=== PATIENT | female | born 1965 | race Caucasian/White ===

== ENCOUNTER 2016-10-23 15:23 | Emergency (ER) | payer MEDICARE, OTHER, SELFPAY | END 2016-10-23 16:00 | disposition home or self-care (01) | PROVIDERS: Emergency Provider Nurse Practitioner Family; Family Provider Nurse Practitioner Family; Visit Provider Nurse Practitioner Family | DX: R22.0 Localized swelling, mass and lump, head (principal); K02.9 Dental caries, unspecified | CPT/HCPCS: 99201 ==

== ENCOUNTER 2018-01-21 19:32 | Observation (INO) ==
[2018-01-21 20:37] LABS: Basophils % 0.3 % (0.1-2.0); Eosinophils # 0.1 K/mm3 (0.0-0.4); Eosinophils % 0.8 % (0.1-12.0); Hematocrit 51.6 % (37.0-47.0); Lymphocytes # 1.7 K/mm3 (0.7-4.5); Mean Corpuscular Hemoglobin 32.5 pg (27.0-31.2); Mean Corpuscular Volume 98.6 fl (81-99); Mean Platelet Volume 7.5 fl (7.4-10.4); Monocytes # 0.8 K/mm3 (0.1-1.0); Neutrophils # 7.2 K/mm3 (1.8-7.8); Neutrophils % 73.9 % (37.0-80.0); Platelet Count 248 K/mm3 (142-424); Red Blood Count 5.23 M/mm3 (4.20-5.40); Red Cell Distribution Width 12.6 % (11.5-17.5); White Blood Count 9.7 K/mm3 (4.8-10.8)
[2018-01-21 21:01] LABS: Microscopic, Urine URINE MICROSCOPIC (MICROSCOPIC)
[2018-01-21 21:01] LABS: Amylase 33 U/L (25-125); Anion Gap 9.9 mEq/L (5-15); Blood Urea Nitrogen 15 mg/dL (7-18); Calcium 9.3 mg/dL (8.5-10.1); Carbon Dioxide 33 mmol/L (21.0-32.0); Chloride 102 mmol/L (98-107); Creatine Kinase 60 U/L (26-192); Glucose 120 mg/dL (74-106); Lipase 65 u/L (73-393); Potassium 3.9 mmoL/L (3.5-5.1); Sodium 141 mmol/L (136-145)
[2018-01-21 21:11] LABS: Appearance,Urine CLEAR (Clear); Blood, Urine 1+ (Negative); Color,Urine DK YELLOW (Yellow); Glucose,Urine (UA) TRACE (Negative); Ketones,Urine 1+ (Negative); Leukocyte Esterase,Urine Negative (Negative); Protein,Urine 2+ (Negative); Specific Gravity, Urine >= 1.030 (1.005-1.030); Urobilinogen,Urine >=8.0 EU/dl (0.2)
--- NOTE | 2018-01-21 21:25 | Emergency Department Note ---
ED Disposition Clinical Impression: Cholelithiasis Qualifiers: Cholelithiasis location: gallbladder Cholecystitis presence: without cholecystitis Biliary obstruction: without biliary obstruction Qualified Code(s) : K80.20 - Calculus of gallbladder without cholecystitis without obstruction COPD (chronic obstructive pulmonary disease) Qualifiers: COPD type: unspecified COPD Qualified Code(s): J44.9 - Chronic obstructive pulmonary disease, unspecified Disposition: Admitted as Observation Condition on Discharge: Good Instructions: DI for Acute Abdomen Referrals: Morgan Abrams [Primary Care Provider] - - Critical Care Critical Care Time: No Attestation: On 01/21/18, the high probability of a clinically significant, sudden or life threatening deterioration of the following system(s) required my full and direct attention, intervention and personal management. The time I documented below is in addition to time spent performing reported procedures but includes the following listed in this critical care notation. Medical Decision Making - Medical Records Medical records reviewed: Yes: I reviewed the patient's medical records. - Ronnie Inquiry Pt receiving controlled substance: No Vital Signs: 01/21/18 19:34 01/21/18 20:34 01/21/18 20:57 Temperature 98.2 F Temperature Source Oral Pulse Rate [Right Radial] 124 H 122 H 103 H Respiratory Rate 28 H 18 Blood Pressure [Right Arm] 168/79 103/68 Blood Pressure Mean [Right Arm] 108 79 Blood Pressure Source [Right Arm] Automatic Cuff Automatic Cuff Blood Pressure Position [Right Arm] Sitting 02 Sat by Pulse Oximetry 89 L 93 L 99 Oxygen Delivery Method Room Air Nasal Cannula - Lab Data Lab results reviewed: Yes: I reviewed the patient's lab results. Lab Results 01/21/18 20:14: WBC 9.7, RBC 5.23, Hgb 17.0 H, Hct 51.6 H, MCV 98.6, MCH 32.5 H , MCHC 33.0, RDW 12.6, Plt Count 248, MPV 7.5, Neut % (Auto) 73.9, Lymph % (Auto ) 17.0, [place] % (Auto) 8.0, Eos % (Auto) 0.8, Baso % (Auto) 0.3, Neut # (Auto) 7.2, Lymph # (Auto) 1.7, [place] # (Auto) 0.8, Eos # (Auto) 0.1, Baso # (Auto) 0.0 01/21/18 20:14: Sodium 141, Potassium 3.9, Chloride 102, Carbon Dioxide 33 H, Anion Gap 9.9, BUN 15, Creatinine 0.77, Estimated Creat Clear 108, Estimated GFR 78, Est GFR ( Amer) 95, Glucose 120 H, Calcium 9.3, Total Creatine Kinase 60, CK-MB (CK-2) < 0.5, CK-MB (CK-2) Rel Index 0.8, Troponin I < 0.02, Amylase 33, Lipase 65 L 01/21/18 20:14: Lactate 1.0 Result diagrams: 01/21/18 20:14 01/21/18 20:14 Orders (Tests/Meds): ED MEDICATIONS Discontinued Medications Generic Name Dose Route Start Last Admin Trade Name Freq PRN Reason Stop Dose Admin Sodium Chloride 1,000 mls @ 999 mls/hr 01/21/18 20:00 01/21/18 20:10 Sod Chlor 0.9% 1000ml Bag IV 01/21/18 21:00 999 mls/hr .[id number] MIKAELA Administration ORDERS Category Date Time Status CT abdomen pelvis wo con Stat Cat Scan 01/21/18 19:51 Taken XR chest 2V Stat Exams 01/21/18 19:51 Ordered Diarrhea Panel, PCR Stat Lab 01/21/18 19:51 Ordered Urinalysis and Microscopic Stat Lab 01/21/18 20:55 Received Blood Culture Stat Micro 01/21/18 20:14 Received 12-lead EKG Request [ECG Request by /Cindi] Stat Y 01/21/18 19:55 Ordered - Radiology Data #1 Image(s): Chest Image Reviewed: Yes I reviewed the patient's radiology image Preliminary Findings: Normal/NAD - CT Data CT Scan: Abdomen, Pelvis Time Received: 21:[address] Reviewed: Yes: I have viewed the radiologist's interpretation Preliminary Findings: Abnormal (gallstone) - ECG Data Tracing #1 I reviewed this ECG and interpreted as documented below: Normal Sinus Rhythm: Yes Ischemic changes: non-specific ST-T wave changes Nausea/Vomiting/Diarrhea HPI - General Chief complaint: Abdominal Pain Stated complaint: weakness,v/d, Time Seen by Provider: 01/21/18 20:00 Mode of Arrival: Ambulatory Source of Information: Patient, Relative, Medical Record Limitations: No Limitations Description of Symptoms (Recalled from ER Triage Doc. by RN): Pt. reports nausea vomiting diarrhea and increased weakness since Friday. She reports she has been unable to eat and her stomach feels bubbly. With lower central abdominal pain. - History of Present Illness HPI Narrative: over the last few days has upper abd pain with n/v - no melena - MD complaint: nausea, vomiting, abdominal pain Onset (ago): day(s) Associated Abdominal Pain: Yes Location of pain: epigastric Severity: moderate Associated symptoms: nausea/vomiting - Related Data Allergies Allergy/AdvReac Type Severity Reaction Status Date / Time morphine [MORPHINE] Allergy Intermediate Verified 01/21/18 19:45 naproxen [From ALEVE] Allergy Unknown SWELLING Verified 01/21/18 19:45 [facility] History I have reviewed the patient's past medical history: Yes - Social History Smoking Status: Current every day smoker Tobacco Type: cigarettes Alcohol Intake: never - Psychiatric History Expresses thoughts of harming self/others: None Suicide Plan Description: No Plan ROS Obtained: Yes All systems reviewed & no additional complaints - Constitutional Constitutional: Denies fever(s) - Eyes Eyes: Denies change in vision - ENT Ears, Nose, Mouth, and Throat: Denies sore throat - Cardiovascular Cardiovascular: Denies chest pain - Respiratory Respiratory: No cough - Gastrointestinal Gastrointestingal: Reports: abdominal pain, nausea, vomiting. Denies: black, tarry stools - Genitourinary Female Genitourinary: Denies hematuria - Musculoskeletal Musculoskeletal: Denies joint pain, Denies joint swelling - Integumentary/Breasts Skin/Breast: Denies rash - Neurologic Neurologic: Denies headache(s), Denies seizure-like activity Physical Exam - General General appearance: alert, in no apparent distress - Head Head exam: normocephalic - Eye Eye exam: Present: PERRL, EOMI. Absent: scleral icterus - ENT ENT exam: Present: mucous membranes dry - Neck Neck exam: Present: trachea midline - Respiratory Respiratory exam: Present: other (rhonchi). Absent: respiratory distress - Cardiovascular Cardiovascular exam: Present: regular rate, systolic murmur, +S4 - Abdominal Exam Abdominal exam: Present: soft, tenderness, Garza's sign Abdominal tenderness: Present: epigastrium, moderate - Extremities Exam Extremities exam: Absent: calf tenderness - Back Exam Back exam: Absent: CVA tenderness (R) - Neurological Exam Neurological exam: Present: alert, oriented X3, CN II-XII intact - Skin Skin exam: Absent: rash
[2018-01-21 22:00] LABS: Bilirubin,Urine Negative (Negative)
[2018-01-21 22:13] LABS: Bacteria,Urine 3+ /lpf; RBC,Urine Occasional #/hpf (0-3); Squamous Epithelial Cell,Urine TNTC #/hpf (0-5)
[2018-01-21 22:14] LABS: Fine Granular Casts,Urine Occasional #/lpf (0)
[2018-01-22 05:26] LABS: Basophils % 0.3 % (0.1-2.0); Eosinophils % 0.4 % (0.1-12.0); Hematocrit 45.3 % (37.0-47.0); Lymphocytes # 2.1 K/mm3 (0.7-4.5); Lymphocytes % 25.6 K/mm3 (10-50); Mean Corpuscular HGB Conc 32.5 g/dL (31.8-35.4); Mean Corpuscular Hemoglobin 32.4 pg (27.0-31.2); Mean Corpuscular Volume 99.8 fl (81-99); Mean Platelet Volume 7.8 fl (7.4-10.4); Monocytes # 0.7 K/mm3 (0.1-1.0); Monocytes % 8.8 % (1.7-9.3); Neutrophils # 5.4 K/mm3 (1.8-7.8); Platelet Count 203 K/mm3 (142-424); Red Blood Count 4.54 M/mm3 (4.20-5.40); Red Cell Distribution Width 12.7 % (11.5-17.5); White Blood Count 8.4 K/mm3 (4.8-10.8)
[2018-01-22 05:36] LABS: Anion Gap 4.7 mEq/L (5-15); Calcium 8.8 mg/dL (8.5-10.1); Chol/HDL Ratio 3.3 (1-3.5); Potassium 3.7 mmoL/L (3.5-5.1)
[2018-01-22 05:44] LABS: Hemoglobin 14.9 g/dL (12.2-16.2)
--- NOTE | 2018-01-22 07:29 | Pharmacy Consult Notes ---
[facility] Pharmacy VTE Monitoring - Patient Demographics Admission date: 01/21/18 Report Date: 01/22/18 Time: 07:28 Allergies/Adverse Reactions: Patient Allergies morphine [MORPHINE] Allergy (Intermediate, Verified 01/21/18 19:45) naproxen [From ALEVE] Allergy (Unknown, Verified 01/21/18 19:45) SWELLING Height: 1.6 m Weight: 83.3 kg Patient Problems: Current Active Problems Cholelithiasis (Acute) COPD (chronic obstructive pulmonary disease) (Acute) - VTE Risk Labs: VTE Related Lab Results Hgb 14.9 g/dL (12.2-16.2) D 01/22/18 04:15 Hct 45.3 % (37.0-47.0) 01/22/18 04:15 Plt Count 203 K/mm3 (142-424) 01/22/18 04:15 BUN 13 mg/dL (7-18) 01/22/18 04:15 Creatinine 0.61 mg/dL (0.55-1.02) D 01/22/18 04:15 Estimated Creat Clear 143 mL/min (0-300) 01/22/18 04:15 VTE Score: 7 VTE Risk Level: Moderate Risk - Prophylaxis VTE Prophylaxis Ordered?: Yes Types of VTE Prophylaxis: TEDS Knee High Location of Applied Device: Bilateral Lower Extremeties - VTE Diagnosis Confirmed Treatment or plan recommended: Continue Current Treatment
--- NOTE | 2018-01-22 14:03 | Consult Report ---
*Admission Date: 01/21/18 *Chief complaint: Nausea, vomiting, and abdominal pain. *History of present illness: This is a 52-year-old female seen in consultation from Dr. Partida for evaluation regarding possible gallbladder disease. Over the past few months she has had intermittent pain throughout the abdomen. Some associated nausea and vomiting. She did have some recent diarrhea, but this has resolved. No fevers. No jaundice. No definitive association with food intake. A CT scan revealed a gallstone and follow-up ultrasound revealed cholelithiasis with some mild wall thickening. Review of Systems - Constitutional Denies chills - Eyes Denies change in vision - ENT Denies difficulty swallowing - *Cardiovascular Denies chest pain - *Respiratory Reports cough Comments: chronic - *Gastrointestinal Reports abdominal pain, Reports nausea, Reports vomiting, Denies vomiting blood , Denies bright, red blood in stools, Denies black, tarry stools, Denies pain with swallowing - *Genitourinary Denies abnormal vaginal bleeding - *Neurologic Denies headache(s), Denies seizure-like activity - Hematologic/Lymphatic Denies easy bleeding [facility] History Medical History: Reports:: Chronic Obstructive Pulmonary Disease (COPD), Heart Murmur, Lung Disease Denies:: Cancer, Congestive Heart Failure, Diabetes Mellitus Type 1, Diabetes Mellitus Type 2, MRSA Other Medical History: Reports: Hormone Therapy, Sinus Problems Laterality Cases: Left: Other Other Surgeries: Yes: Tubal Ligation Amputation: No - *Social History Educational Level: Attended Grade School Smoking Status: Current every day smoker Tobacco Type: cigarettes # Packs/Day (cigarettes): 1 #Yrs smoked (if former smoker): 40 Alcohol Intake: former Alcohol Intake Frequency:: 0-2 drinks per day Occupational Status: disabled Housing: apartment Household Members: spouse - Psychiatric History Expresses thoughts of harming self/others: None Suicide Plan Description: No Plan *Family Hx:: Asthma Meds Home Medications Medication Instructions Recorded Confirmed Type Albuterol Sulfate [Albuterol HFA 1 - 2 puffs IH Q4-6H PRN 01/21/18 01/21/18 History Inhaler] Estradiol 0.05 mg TD WEEKLY 01/21/18 01/22/18 History Fluoxetine HCl 20 mg PO BID 01/21/18 01/21/18 History Nortriptyline HCl 25 mg PO HS 01/21/18 01/21/18 History Omeprazole [Omeprazole 40mg 40 mg PO DAILY 01/21/18 01/21/18 History Capsule] Progesterone, Micronized 100 mg PO DAILY 01/21/18 01/21/18 History [Progesterone] Ropinirole HCl [Requip] 0.5 mg PO HS 01/21/18 01/21/18 History Tiotropium [place] [Spiriva 2.5 mcg INHALATION BIDP PRN 01/21/18 01/21/18 History Respimat] buPROPion HCl [Wellbutrin SR 150mg 150 mg PO BID 01/21/18 01/21/18 History Tablet] Allergies Allergy/AdvReac Type Severity Reaction Status Date / Time morphine [MORPHINE] Allergy Intermediate Verified 01/21/18 19:45 naproxen [From ALEVE] Allergy Unknown SWELLING Verified 01/21/18 19:45 Exam Vital signs and Labs for Last 24 Hours: Temp Pulse Resp BP Pulse Ox 98.3 F 96 H 16 130/68 91 L 01/22/18 07:36 01/22/18 07:36 01/22/18 07:36 01/22/18 07:36 01/22/18 08:00 Laboratory Results - last 24 hr 01/21/18 20:14: WBC 9.7, RBC 5.23, Hgb 17.0 H, Hct 51.6 H, MCV 98.6, MCH 32.5 H , MCHC 33.0, RDW 12.6, Plt Count 248, MPV 7.5, Neut % (Auto) 73.9, Lymph % (Auto ) 17.0, [place] % (Auto) 8.0, Eos % (Auto) 0.8, Baso % (Auto) 0.3, Neut # (Auto) 7.2, Lymph # (Auto) 1.7, [place] # (Auto) 0.8, Eos # (Auto) 0.1, Baso # (Auto) 0.0 01/21/18 20:14: Sodium 141, Potassium 3.9, Chloride 102, Carbon Dioxide 33 H, Anion Gap 9.9, BUN 15, Creatinine 0.77, Estimated Creat Clear 108, Estimated GFR 78, Est GFR ( Amer) 95, Glucose 120 H, Calcium 9.3, Total Creatine Kinase 60, CK-MB (CK-2) < 0.5, CK-MB (CK-2) Rel Index 0.8, Troponin I < 0.02, Amylase 33, Lipase 65 L 01/21/18 20:14: Lactate 1.0 01/21/18 20:55: Urine Color Dk yellow, Urine Appearance Clear, Urine pH 6.0, Ur Specific [place] >= 1.030, Urine Protein 2+, Urine Glucose (UA) Trace, Urine Ketones 1+, Urine Blood 1+, Urine Nitrate Positive, Urine Bilirubin Negative, Urine Urobilinogen >=8.0, Ur Leukocyte Esterase Negative, Urine RBC Occasional, Urine WBC 5-10, Ur Squamous Epith Cells Tntc, Urine Bacteria 3+, Hyaline Casts 3 -5, Fine Granular Casts Occasional 01/21/18 22:00: Troponin I < 0.02 01/22/18 01:00: Troponin I < 0.02 01/22/18 04:15: Troponin I < 0.02 01/22/18 04:15: WBC 8.4, RBC 4.54, Hgb 14.9 D, Hct 45.3, MCV 99.8 H, MCH 32.4 H , MCHC 32.5, RDW 12.7, Plt Count 203, MPV 7.8, Neut % (Auto) 65.0, Lymph % (Auto ) 25.6, [place] % (Auto) 8.8, Eos % (Auto) 0.4, Baso % (Auto) 0.3, Neut # (Auto) 5.4, Lymph # (Auto) 2.1, [place] # (Auto) 0.7, Eos # (Auto) 0.0, Baso # (Auto) 0.0 01/22/18 04:15: Sodium 142, Potassium 3.7, Chloride 107, Carbon Dioxide 34 H, Anion Gap 4.7 L, BUN 13, Creatinine 0.61 D, Estimated Creat Clear 143, Estimated GFR 102, Est GFR ( Amer) 124 D, Glucose 107 H, Calcium 8.8, Magnesium 2.0, Triglycerides 112, Cholesterol 135 L, LDL Cholesterol 72, VLDL Cholesterol 22, HDL Cholesterol 41, Cholesterol/HDL Ratio 3.3 I & O for Last 24 hours: Intake & Output 01/20/18 01/21/18 01/22/18 01/23/18 11:59 11:59 11:59 11:59 Intake Total 373 / 373 Balance 373 / 373 Weight 183 lb 10.321 oz - Constitutional no acute distress - *Routine Neck Exam Present: full ROM - *Routine Respiratory Exam Absent: respiratory distress Comments: on NC O2 - *Routine Abdominal Exam Present: soft, tenderness Comments: throughout, but worse in epigastric region and RUQ - *Routine Neurological Exam Present: alert - Routine Psychiatric Exam Present: normal affect Results - Labs 01/22/18 04:15 01/22/18 04:15 Laboratory Results - last 24 hr 01/21/18 20:14: WBC 9.7, RBC 5.23, Hgb 17.0 H, Hct 51.6 H, MCV 98.6, MCH 32.5 H , MCHC 33.0, RDW 12.6, Plt Count 248, MPV 7.5, Neut % (Auto) 73.9, Lymph % (Auto ) 17.0, [place] % (Auto) 8.0, Eos % (Auto) 0.8, Baso % (Auto) 0.3, Neut # (Auto) 7.2, Lymph # (Auto) 1.7, [place] # (Auto) 0.8, Eos # (Auto) 0.1, Baso # (Auto) 0.0 01/21/18 20:14: Sodium 141, Potassium 3.9, Chloride 102, Carbon Dioxide 33 H, Anion Gap 9.9, BUN 15, Creatinine 0.77, Estimated Creat Clear 108, Estimated GFR 78, Est GFR ( Amer) 95, Glucose 120 H, Calcium 9.3, Total Creatine Kinase 60, CK-MB (CK-2) < 0.5, CK-MB (CK-2) Rel Index 0.8, Troponin I < 0.02, Amylase 33, Lipase 65 L 01/21/18 20:14: Lactate 1.0 01/21/18 20:55: Urine Color Dk yellow, Urine Appearance Clear, Urine pH 6.0, Ur Specific [place] >= 1.030, Urine Protein 2+, Urine Glucose (UA) Trace, Urine Ketones 1+, Urine Blood 1+, Urine Nitrate Positive, Urine Bilirubin Negative, Urine Urobilinogen >=8.0, Ur Leukocyte Esterase Negative, Urine RBC Occasional, Urine WBC 5-10, Ur Squamous Epith Cells Tntc, Urine Bacteria 3+, Hyaline Casts 3 -5, Fine Granular Casts Occasional 01/21/18 22:00: Troponin I < 0.02 01/22/18 01:00: Troponin I < 0.02 01/22/18 04:15: Troponin I < 0.02 01/22/18 04:15: WBC 8.4, RBC 4.54, Hgb 14.9 D, Hct 45.3, MCV 99.8 H, MCH 32.4 H , MCHC 32.5, RDW 12.7, Plt Count 203, MPV 7.8, Neut % (Auto) 65.0, Lymph % (Auto ) 25.6, [place] % (Auto) 8.8, Eos % (Auto) 0.4, Baso % (Auto) 0.3, Neut # (Auto) 5.4, Lymph # (Auto) 2.1, [place] # (Auto) 0.7, Eos # (Auto) 0.0, Baso # (Auto) 0.0 01/22/18 04:15: Sodium 142, Potassium 3.7, Chloride 107, Carbon Dioxide 34 H, Anion Gap 4.7 L, BUN 13, Creatinine 0.61 D, Estimated Creat Clear 143, Estimated GFR 102, Est GFR ( Amer) 124 D, Glucose 107 H, Calcium 8.8, Magnesium 2.0, Triglycerides 112, Cholesterol 135 L, LDL Cholesterol 72, VLDL Cholesterol 22, HDL Cholesterol 41, Cholesterol/HDL Ratio 3.3 - Imaging CT scan - abdomen: report reviewed CT scan - pelvis: report reviewed US - abdomen: report reviewed Assessment and Plan (1) Chronic calculous cholecystitis Current visit: Yes Status: Acute Category: Medical Code(s): K80.10 - Calculus of gallbladder with chronic cholecystitis without obstruction Some of the patient's recent symptoms are not definitively attributable to biliary disease; however, she certainly does have some pain in the right upper quadrant and epigastric region with radiographic evidence of at least mild calculus cholecystitis. I have discussed the risks and benefits of cholecystectomy and she agrees to proceed. LFTs have been ordered Laparoscopic cholecystectomy (pending results of liver function studies)
[2018-01-22 14:23] LABS: Albumin Level 2.8 gm/dL (3.4-5.0); Bilirubin,Direct 0.1 mg/dL (0.0-0.2); Bilirubin,Indirect 0.3 mg/dL (0.0-0.9); Bilirubin,Total 0.4 mg/dL (0.2-1.0); Total Protein,Serum 6.7 gm/dL (6.4-8.2)
--- NOTE | 2018-01-22 17:06 | Operative Note ---
Date of procedure: 01/22/18 Pre-op Diagnosis:: Acute on chronic calculus cholecystitis Post-op Diagnosis:: Same Procedure performed:: Laparoscopic cholecystectomy Surgeon:: George Brown MD Termite Treater(s):: Dinesh HOG TRADER:: René Isaac Anesthesia: GETA Estimated blood loss (mL): 15 Operative findings:: Moderately sized gallstone with mild gallbladder wall thickening and patchy pericholecystic fat stranding Operative note:: After informed consent was obtained, the patient was taken to the operating room and placed in the supine position. General anesthesia was induced and the abdomen was prepped and draped in a sterile fashion. After infiltration with local anesthetic an infraumbilical incision was made. A Veress needle was placed in position. The abdomen was insufflated. A 5 mm optical trocar was placed in position. Under direct visualization, a 12 mm trocar was placed in the subxiphoid position and 2 additional 5 mm trocars were placed in the right upper quadrant. The gallbladder was elevated up and over the liver margin. Mild gallbladder wall thickening and patchy pericholecystic fat stranding was noted. Careful dissection was utilized to free the gallbladder from surrounding tissue. The tissue around the cystic duct was carefully dissected. 3 clips were placed proximally and the duct was transected with harmonic aubree. Harmonic aubree were then utilized to dissect the gallbladder away from the liver margin with careful attention to the control of the cystic artery. The gallbladder was placed in a retrieval bag and removed through the subxiphoid trocar site. A moderately-sized gallstone was confirmed. The right upper quadrant was thoroughly irrigated. No active bleeding or bile leak was noted. Fascia at the subxiphoid trocar site was reapproximated utilizing 0 Ethibond. The remaining trocars were removed. All wounds were irrigated and skin was closed with 4-0 Monocryl in a subcuticular fashion. Steri-Strips were applied. The patient's anesthetic agents were reversed and extubation was completed prior to transfer to recovery in stable condition. Condition: stable Disposition: PACU Specimens:: Gallbladder and contents Complications:: No immediate
--- NOTE | 2018-01-22 17:22 | History & Physical Report ---
*Admission Date: 01/21/18 *Chief complaint: abd pain *History of present illness: This is a 52-year-old female seen in consultation from Dr. Partida for evaluation regarding possible gallbladder disease. Over the past few months she has had intermittent pain throughout the abdomen. Some associated nausea and vomiting. She did have some recent diarrhea, but this has resolved. No fevers. No jaundice. No definitive association with food intake. A CT scan revealed a gallstone and follow-up ultrasound revealed cholelithiasis with some mild wall thickening. [facility] History I have reviewed the patient's past medical history: Yes Medical History: Reports:: Chronic Obstructive Pulmonary Disease (COPD), Heart Murmur, Lung Disease Denies:: Cancer, Congestive Heart Failure, Diabetes Mellitus Type 1, Diabetes Mellitus Type 2, MRSA Other Medical History: Reports: Hormone Therapy, Sinus Problems Laterality Cases: Left: Other Other Surgeries: Yes: Tubal Ligation Amputation: No - *Social History Educational Level: Attended Grade School Smoking Status: Current every day smoker Tobacco Type: cigarettes # Packs/Day (cigarettes): 1 #Yrs smoked (if former smoker): 40 Alcohol Intake: former Alcohol Intake Frequency:: 0-2 drinks per day Occupational Status: disabled Housing: apartment Household Members: spouse - Psychiatric History Expresses thoughts of harming self/others: None Suicide Plan Description: No Plan *Family Hx:: Asthma Review of Systems - Review of Systems Review of systems:: pertinent systems reviewed and negative unless documented below - Constitutional Denies fever(s) - Eyes Denies floaters - ENT Denies change in voice - *Cardiovascular Reports shortness of breath - *Respiratory Reports shortness of breath, Reports shortness of breath with activity - *Gastrointestinal Reports abdominal pain, Denies vomiting - *Genitourinary Denies vaginal dryness - *Musculoskeletal Denies stiffness - Integumentary/Breasts Denies rash - *Neurologic Denies headache(s), Denies seizure-like activity - Endocrine Denies flushing - Hematologic/Lymphatic Denies enlarged lymph nodes Meds Home Medications Medication Instructions Recorded Confirmed Type Albuterol Sulfate [Albuterol HFA 1 - 2 puffs IH Q4-6H PRN 01/21/18 01/21/18 History Inhaler] Estradiol 0.05 mg TD WEEKLY 01/21/18 01/22/18 History Fluoxetine HCl 20 mg PO BID 01/21/18 01/21/18 History Nortriptyline HCl 25 mg PO HS 01/21/18 01/21/18 History Omeprazole [Omeprazole 40mg 40 mg PO DAILY 01/21/18 01/21/18 History Capsule] Progesterone, Micronized 100 mg PO DAILY 01/21/18 01/21/18 History [Progesterone] Ropinirole HCl [Requip] 0.5 mg PO HS 01/21/18 01/21/18 History Tiotropium [place] [Spiriva 2.5 mcg INHALATION BIDP PRN 01/21/18 01/21/18 History Respimat] buPROPion HCl [Wellbutrin SR 150mg 150 mg PO BID 01/21/18 01/21/18 History Tablet] Allergies Allergy/AdvReac Type Severity Reaction Status Date / Time morphine [MORPHINE] Allergy Intermediate Verified 01/21/18 19:45 naproxen [From ALEVE] Allergy Unknown SWELLING Verified 01/21/18 19:45 Exam Vital signs and Labs for Last 24 Hours: Temp Pulse Resp BP Pulse Ox 98.3 F 89 16 130/68 95 01/22/18 07:36 01/22/18 15:56 01/22/18 07:36 01/22/18 07:36 01/22/18 15:56 Laboratory Results - last 24 hr 01/21/18 20:14: WBC 9.7, RBC 5.23, Hgb 17.0 H, Hct 51.6 H, MCV 98.6, MCH 32.5 H , MCHC 33.0, RDW 12.6, Plt Count 248, MPV 7.5, Neut % (Auto) 73.9, Lymph % (Auto ) 17.0, Giles % (Auto) 8.0, Eos % (Auto) 0.8, Baso % (Auto) 0.3, Neut # (Auto) 7.2, Lymph # (Auto) 1.7, Giles # (Auto) 0.8, Eos # (Auto) 0.1, Baso # (Auto) 0.0 01/21/18 20:14: Sodium 141, Potassium 3.9, Chloride 102, Carbon Dioxide 33 H, Anion Gap 9.9, BUN 15, Creatinine 0.77, Estimated Creat Clear 108, Estimated GFR 78, Est GFR ( Amer) 95, Glucose 120 H, Calcium 9.3, Total Creatine Kinase 60, CK-MB (CK-2) < 0.5, CK-MB (CK-2) Rel Index 0.8, Troponin I < 0.02, Amylase 33, Lipase 65 L 01/21/18 20:14: Lactate 1.0 01/21/18 20:55: Urine Color Dk yellow, Urine Appearance Clear, Urine pH 6.0, Ur Specific [place] >= 1.030, Urine Protein 2+, Urine Glucose (UA) Trace, Urine Ketones 1+, Urine Blood 1+, Urine Nitrate Positive, Urine Bilirubin Negative, Urine Urobilinogen >=8.0, Ur Leukocyte Esterase Negative, Urine RBC Occasional, Urine WBC 5-10, Ur Squamous Epith Cells Tntc, Urine Bacteria 3+, Hyaline Casts 3 -5, Fine Granular Casts Occasional 01/21/18 22:00: Troponin I < 0.02 01/22/18 01:00: Troponin I < 0.02 01/22/18 04:15: Troponin I < 0.02 01/22/18 04:15: WBC 8.4, RBC 4.54, Hgb 14.9 D, Hct 45.3, MCV 99.8 H, MCH 32.4 H , MCHC 32.5, RDW 12.7, Plt Count 203, MPV 7.8, Neut % (Auto) 65.0, Lymph % (Auto ) 25.6, Giles % (Auto) 8.8, Eos % (Auto) 0.4, Baso % (Auto) 0.3, Neut # (Auto) 5.4, Lymph # (Auto) 2.1, Giles # (Auto) 0.7, Eos # (Auto) 0.0, Baso # (Auto) 0.0 01/22/18 04:15: Sodium 142, Potassium 3.7, Chloride 107, Carbon Dioxide 34 H, Anion Gap 4.7 L, BUN 13, Creatinine 0.61 D, Estimated Creat Clear 143, Estimated GFR 102, Est GFR ( Amer) 124 D, Glucose 107 H, Calcium 8.8, Magnesium 2.0, Triglycerides 112, Cholesterol 135 L, LDL Cholesterol 72, VLDL Cholesterol 22, HDL Cholesterol 41, Cholesterol/HDL Ratio 3.3 01/22/18 14:00: Total Bilirubin 0.4, Direct Bilirubin 0.1, Indirect Bilirubin 0.3, AST 6 L, ALT 17, Alkaline Phosphatase 88, Total Protein 6.7, Albumin 2.8 L I & O for Last 24 hours: Intake & Output 01/20/18 01/21/18 01/22/18 01/23/18 11:59 11:59 11:59 11:59 Intake Total 373 / 373 Balance 373 / 373 Weight 183 lb 10.321 oz Microbiology Reports for the Last 24 Hours: Microbiology 01/22/18 11:00 Sputum - Expectorated Sputum Gram Stain - Final - Constitutional no acute distress - *Routine HEENT Exam Head: Present: normocephalic Eye: Present: PERRL ENT: Present: mucous membranes moist - *Routine Neck Exam Present: full ROM - *Routine Respiratory Exam Present: wheezes - *Routine Cardiovascular Exam Present: RRR - *Routine Abdominal Exam Present: soft, normoactive bowel sounds, tenderness - *Routine Extremities Exam Present: full ROM - *Routine Skin Exam Present: intact - *Routine Neurological Exam Present: alert, oriented X3, CN II-XII intact - Routine Psychiatric Exam Present: normal affect, normal thought process H&P: Result - Labs Labs: Short CBC 01/21/18 01/22/18 Range/Units 20:14 04:15 WBC 9.7 8.4 (4.8-10.8) K/mm3 Hgb 17.0 H 14.9 D (12.2-16.2) g/dL Hct 51.6 H 45.3 (37.0-47.0) % Plt Count 248 203 (142-424) K/mm3 BMP 01/21/18 01/22/18 20:14 04:15 Sodium 141 142 Potassium 3.9 3.7 Chloride 102 107 Carbon Dioxide 33 H 34 H BUN 15 13 Creatinine 0.77 0.61 D Glucose 120 H 107 H Calcium 9.3 8.8 Cardiac Enzymes 01/21/18 01/21/18 01/22/18 Range/Units 20:14 22:00 01:00 Total Creatine Kinase 60 (26-192) U/L CK-MB (CK-2) < 0.5 (0.0-3.6) ng/ml Troponin I < 0.02 < 0.02 < 0.02 (0.00-0.06) ng/ml 01/22/18 Range/Units 04:15 Total Creatine Kinase (26-192) U/L CK-MB (CK-2) (0.0-3.6) ng/ml Troponin I < 0.02 (0.00-0.06) ng/ml Liver Function 01/22/18 Range/Units 14:00 Total Bilirubin 0.4 (0.2-1.0) mg/dL Direct Bilirubin 0.1 (0.0-0.2) mg/dL AST 6 L (15-37) U/L ALT 17 (12-78) U/L Alkaline Phosphatase 88 (46-116) U/L Albumin 2.8 L (3.4-5.0) gm/dL Urine 01/21/18 Range/Units 20:55 Urine Color Dk yellow (Yellow) Urine Appearance Clear (Clear) Urine pH 6.0 (5.0-8.5) Ur Specific [place] >= 1.030 (1.005-1.030) Urine Protein 2+ (Negative) Urine Glucose (UA) Trace (Negative) Assessment and Plan (1) Chronic calculous cholecystitis Current visit: Yes Status: Acute Category: Medical Code(s): K80.10 - Calculus of gallbladder with chronic cholecystitis without obstruction - Assessment and plan all Dx Assessment and Plan for all problems:: Surgery consult Rounded with Dr. Partida all orders per Helga
--- NOTE | 2018-01-22 17:53 | Progress Note ---
[facility] Anesthesia Record Part I Intake, IV Amount: 1,000 Estimated blood loss (mL): 0 Urine output (mL): 0 Blood Pressure: 166/84 SaO2: 95 Pulse Rate: 108 Respiratory Rate: 18 Temperature: 97.4 F Patient is:: Awake, Stable Stable to PACU at:: 17:50
--- NOTE | 2018-01-22 17:53 | Progress Note ---
[facility] Anesthesia Checklist - Structural Data Admitted From: Inpatient Planned Operative Procedure/s: pardeep hong Consent for Planned Operative Procedure(s) Verified: Yes - Airway Assessment C-Spine Mobility Assessed: Yes TMJ Mobility Assessed: Yes Dentition: Poor Dentition - Neurological Assessment Level of Consciousness: Awake, Alert, Appropriate - Anesthesia Plan Anesthesia Risk discussed: Yes Anesthesia Plan: Verified ASA Class: III Anesthesia Type: General [facility] Anesthesia HX I have reviewed the patient's past medical history: Yes Medical History: Reports:: Chronic Obstructive Pulmonary Disease (COPD), Heart Murmur, Lung Disease Denies:: Cancer, Congestive Heart Failure, Diabetes Mellitus Type 1, Diabetes Mellitus Type 2, MRSA Other Medical History: Reports: Hormone Therapy, Sinus Problems Laterality Cases: Left: Other Other Surgeries: Yes: Tubal Ligation Amputation: No *Family Hx:: Asthma
--- NOTE | 2018-01-22 17:54 | Progress Note ---
[facility] Anesthesia Record Part II Discharge Time: 18:20 Destination: floor PACU nurse assessment reviewed?: Yes Patient Condition:: Good Anesthesia Complications:: None
--- NOTE | 2018-01-23 06:45 | Progress Note ---
Subjective Patient reports: other ("doing OK"..."coughing quit a bit") Exam Vital signs and Labs for Last 24 Hours: Temp Pulse Resp BP Pulse Ox 98.1 F 91 H 16 128/70 98 01/23/18 04:40 01/23/18 06:26 01/23/18 04:40 01/23/18 04:40 01/23/18 06:26 Laboratory Results - last 24 hr 01/22/18 14:00: Total Bilirubin 0.4, Direct Bilirubin 0.1, Indirect Bilirubin 0.3, AST 6 L, ALT 17, Alkaline Phosphatase 88, Total Protein 6.7, Albumin 2.8 L I & O for Last 24 hours: Intake & Output 01/20/18 01/21/18 01/22/18 01/23/18 11:59 11:59 11:59 11:59 Intake Total 373 / 373 1682 / 1682 Output Total 500 / 500 Balance 373 / 373 1182 / 1182 Weight 183 lb 10.321 oz 201 lb 4.513 oz Microbiology Reports for the Last 24 Hours: Microbiology 01/21/18 20:55 Urine,Clean Catch Urine Culture - Preliminary NO GROWTH AFTER 24 HOURS 01/22/18 11:00 Sputum - Expectorated Sputum Gram Stain - Final - Constitutional no acute distress - *Routine Respiratory Exam Absent: respiratory distress Comments: + cough - *Routine Abdominal Exam Present: soft Comments: dressing intact. no cellulitis. Progress Note: A&P (1) Chronic calculous cholecystitis Status: Acute Current Visit: Yes (2) Calculus of gallbladder with acute and chronic cholecystitis without obstruction Status: Acute Assessment and plan: stable post-op no heavy lifting outpatient f/u in 1-2 weeks Current Visit: Yes (3) Cough Status: Acute Assessment and plan: as per primary service Current Visit: Yes (4) COPD (chronic obstructive pulmonary disease) Status: Acute Assessment and plan: as per primary service Current Visit: Yes
--- NOTE | 2018-01-23 08:39 | Discharge Summary ---
General - General Admission date:: 01/21/18 Discharge date: 01/23/18 HPI HPI: This is a 52-year-old female seen in consultation from Dr. Partida for evaluation regarding possible gallbladder disease. Over the past few months she has had intermittent pain throughout the abdomen. Some associated nausea and vomiting. She did have some recent diarrhea, but this has resolved. No fevers. No jaundice. No definitive association with food intake. A CT scan revealed a gallstone and follow-up ultrasound revealed cholelithiasis with some mild wall thickening. Hospital Course Hospital Course: Gallbladder us: IMPRESSION: Cholelithiasis with borderline thickening of the gallbladder wall. Fatty liver. ct abd/pelvis:IMPRESSION: No acute abdominal/pelvic findings. Cholelithiasis chest x ray:IMPRESSION: 1. Coarsening of the bronchovascular markings consistent with smoking-related lung disease/chronic bronchitis 2. Mild prominence of the right hilum. Upright PA and lateral chest may be of value. surgery consult:see note removal of gallbladder Patient states she feels much better and is ready to go home. Room O2 was 87% patient's wheezing will order outpatient O2 and nebulizer treatments. Patient will follow up with Dr. Brown Objective Vital signs: Temp Pulse Resp BP Pulse Ox 97.6 F 88 18 135/64 95 01/23/18 07:24 01/23/18 07:24 01/23/18 07:24 01/23/18 07:24 01/23/18 07:24 no acute distress - *Routine HEENT Exam Head: Present: normocephalic Eye: Present: PERRL ENT: Present: mucous membranes moist - *Routine Neck Exam Present: full ROM - *Routine Respiratory Exam Present: wheezes - *Routine Cardiovascular Exam Present: RRR - *Routine Abdominal Exam Present: soft, tenderness Comments: [address] - Routine Back/Spine/Pelvis Exam Back/Spine: Present: full ROM - *Routine Neurological Exam Present: alert, oriented X3, CN II-XII intact - Routine Psychiatric Exam Present: normal affect, normal thought process - Detailed Skin Exam generalized abdomen Body image: 1 - dressing 2 - dressing 3 - dressing Results Labs on day of discharge: Labs from last 24 hours 01/22/18 14:00 Total Bilirubin 0.4 Direct Bilirubin 0.1 Indirect Bilirubin 0.3 AST 6 L ALT 17 Alkaline Phosphatase 88 Total Protein 6.7 Albumin 2.8 L - Additional Comments Rounded with Dr. Partida all orders per Helga DS: Diagnosis - Discharge Diagnosis (1) Chronic calculous cholecystitis Status: Acute (2) Calculus of gallbladder with acute and chronic cholecystitis without obstruction Status: Acute (3) Cough Status: Acute (4) COPD (chronic obstructive pulmonary disease) Status: Acute Discharge Plan - Patient Discharge Instructions ACTIVITY: Continue current activity DIET: continue same diet - Follow up Plan Follow up with: George Brown MD [Staff Physician] - 2 weeks Disposition: Home, Self-Intermediate Medications: Home Medications Medication Instructions Recorded Confirmed Type Albuterol Sulfate [Albuterol HFA 1 - 2 puffs IH Q4-6H PRN 01/21/18 01/21/18 History Inhaler] Estradiol 0.05 mg TD WEEKLY 01/21/18 01/22/18 History Fluoxetine HCl 20 mg PO BID 01/21/18 01/21/18 History Nortriptyline HCl 25 mg PO HS 01/21/18 01/21/18 History Omeprazole [Omeprazole 40mg 40 mg PO DAILY 01/21/18 01/21/18 History Capsule] Progesterone, Micronized 100 mg PO DAILY 01/21/18 01/21/18 History [Progesterone] Ropinirole HCl [Requip] 0.5 mg PO HS 01/21/18 01/21/18 History Tiotropium [place] [Spiriva 2.5 mcg INHALATION BIDP PRN 01/21/18 01/21/18 History Respimat] buPROPion HCl [Wellbutrin SR 150mg 150 mg PO BID 01/21/18 01/21/18 History Tablet] Prescriptions/Medication Reconciliation: New Hydrocod/Acet 5/325 mg [[place] 5/325mg tablet] 1 each PO BID 3 Days #6 tab Continue Omeprazole [Omeprazole 40mg Capsule] 40 mg PO DAILY Progesterone, Micronized [Progesterone] 100 mg PO DAILY Fluoxetine HCl 20 mg PO BID buPROPion HCl [Wellbutrin SR 150mg Tablet] 150 mg PO BID Ropinirole HCl [Requip] 0.5 mg PO HS Albuterol Sulfate [Albuterol HFA Inhaler] 1 - 2 puffs IH Q4-6H PRN PRN Reason: Shortness Of Breath Or Wheezing Tiotropium [place] [Spiriva Respimat] 2.5 mcg INHALATION BIDP PRN PRN Reason: Wheezing Nortriptyline HCl 25 mg PO HS Estradiol 0.05 mg TD WEEKLY
== END 2018-01-23 11:10 | disposition home or self-care (01) ==
LOC: ER 19:32 → 2ND 19:32
PROVIDERS: ADMIT Emergency Medicine; ATTEND Emergency Medicine
CPT/HCPCS: 36415; 71020; 71046; 74176; 76705; 80048; 80061; 80076; 81001; 82150; 82550; 82553; 83605; 83690; 83735; 84484; 85025; 87040; 87070; 87086; 87205; 93005; 94640; 94761; 96365; 99285; G0378; J2405; J2710

== ENCOUNTER 2018-02-04 14:04 | Outpatient (CLI) | payer MEDICARE, SELFPAY ==
[2018-02-04 14:23] LABS: Basophils # 0.1 K/mm3 (0-0.2); Basophils % 0.7 % (0.1-2.0); Eosinophils # 0.1 K/mm3 (0.0-0.4); Eosinophils % 1.1 % (0.1-12.0); Hemoglobin 15.3 g/dL (12.2-16.2); Lymphocytes # 2.8 K/mm3 (0.7-4.5); Lymphocytes % 32.5 K/mm3 (10-50); Mean Corpuscular HGB Conc 31.9 g/dL (31.8-35.4); Mean Corpuscular Hemoglobin 31.8 pg (27.0-31.2); Mean Corpuscular Volume 99.5 fl (81-99); Mean Platelet Volume 7.5 fl (7.4-10.4); Monocytes # 0.4 K/mm3 (0.1-1.0); Monocytes % 4.3 % (1.7-9.3); Neutrophils # 5.3 K/mm3 (1.8-7.8); Neutrophils % 61.4 % (37.0-80.0); Platelet Count 319 K/mm3 (142-424); Red Blood Count 4.82 M/mm3 (4.20-5.40); White Blood Count 8.6 K/mm3 (4.8-10.8)
[2018-02-04 14:47] VITALS: BP 147/66; PULSE 84; RESP 18; TEMP 36.6; O2SAT 96
[2018-02-04 14:54] LABS: Alanine Aminotransferase 22 U/L (12-78); Albumin Level 3.8 gm/dL (3.4-5.0); Albumin/Globulin Ratio 1.1 (1.1-1.8); Alkaline Phosphatase 100 U/L (46-116); Anion Gap 8.6 mEq/L (5-15); Aspartate Amino Transferase 10 U/L (15-37); Bilirubin,Total 0.4 mg/dL (0.2-1.0); Blood Urea Nitrogen 7 mg/dL (7-18); Calcium 9.4 mg/dL (8.5-10.1); Carbon Dioxide 35 mmol/L (21.0-32.0); Chloride 102 mmol/L (98-107); Creatinine,Serum 0.75 mg/dL (0.55-1.02); Estimated Glomerular Filt Rate 81 ml/min (>60); GFR (African American) 97 ML/MIN (>60); Globulin 3.4 gm/dl (1.3-3.2); Glucose 110 mg/dL (74-106); Potassium 4.6 mmoL/L (3.5-5.1); Sodium 141 mmol/L (136-145); Total Protein,Serum 7.2 gm/dL (6.4-8.2)
== END 2018-02-04 14:50 | disposition home or self-care (01) ==
LOC: INF 14:05
PROVIDERS: PCP Family Medicine; Visit Provider Surgery
DX: K80.20 Calculus of gallbladder without cholecystitis without obstruction (principal)
CPT/HCPCS: 36415; 80053; 85025; 96372

== ENCOUNTER → 2018-02-10 12:09 | Outpatient (CLI) | payer MEDICARE, SELFPAY ==
[2018-02-10 12:13] LABS: Adenovirus F 40/41, stool Not Detected (NotDetected); Astrovirus Not Detected (NotDetected); Campylobacter Not Detected (NotDetected); Clostridium Difficile A/B, PCR Not Detected (NotDetected); Cryptosporidium Not Detected (NotDetected); Cyclospora Cayetanesis Not Detected (NotDetected); Entamoeba histolytica Not Detected (NotDetected); Enteroaggregative E coli Not Detected (NotDetected); Enteropathogenic E coli Not Detected (NotDetected); Giardia lamblia Not Detected (NotDetected); Norovirus Not Detected (NotDetected); Plesimonas Shigalloides, PCR Not Detected (NotDetected); Rotavirus A Not Detected (NotDetected); Salmonella, PCR Not Detected (NotDetected); Sapovirus Not Detected (NotDetected); Shiga-like toxin E coli Not Detected (NotDetected); Shigella Enterovasive E coli Not Detected (NotDetected); Vibrio Cholerae Not Detected (NotDetected); Vibrio, PCR Not Detected (NotDetected); Yersinia Entercolitica, PCR Not Detected (NotDetected)
[2018-02-10 17:21] LABS: Enterotoxigenic E coli Detected (NotDetected)
== END ==
PROVIDERS: PCP Family Medicine; Visit Provider Surgery
DX: K80.20 Calculus of gallbladder without cholecystitis without obstruction (principal)
CPT/HCPCS: 87507

== ENCOUNTER → 2019-02-03 20:10 | Outpatient (CLI) | payer MEDICARE, SELFPAY | PROVIDERS: PCP Nurse Practitioner Family; Visit Provider Nurse Practitioner Family | DX: G47.33 Obstructive sleep apnea (adult) (pediatric) (principal); R40.0 Somnolence; R06.83 Snoring | CPT/HCPCS: 95810 ==

== ENCOUNTER 2020-07-14 18:35 | Emergency (ER) | payer MEDICARE, SELFPAY ==
[2020-07-14 18:37] VITALS: BP 160/89; PULSE 90; RESP 16; TEMP 36.6; O2SAT 98; BMI 32.8
[2020-07-14 19:00] VITALS: BP 160/89; PULSE 90; RESP 16; TEMP 36.6; O2SAT 98; BMI 32.8
--- NOTE | 2020-07-14 19:11 | HMH.EDUTC ---
[facility] [place] Clinical Impression: Right hand pain Carpal tunnel syndrome Qualifiers: Laterality: right Qualified Code(s): G56.01 - Carpal tunnel syndrome, right upper limb Ulnar nerve entrapment Qualifiers: Laterality: right Qualified Code(s): G56.21 - Lesion of ulnar nerve, right upper limb Disposition: Home, Self-Care Condition on Discharge: Good Instructions: DI for Carpal Tunnel Syndrome, Cubital Tunnel Syndrome Additional Instructions: Avoid doing repetitive things with your hands until you are seen by an orthopedic doctor. Follow up with orthopedics. I put in a referral to Dr. Yoo. Please call his office and schedule an appointment. You may need additional testing to get a complete diagnosis. Take the medications as directed. Follow up with your primary care physician. GO TO THE ER FOR ANY WORSENING SYMPTOMS OR CONCERNS Prescriptions: predniSONE [Prednisone 20mg Tab] 20 mg PO BID 5 Days #10 tab Transmission Status: Received by [employer] [id number] Referrals: Esau Partida MD [Primary Care Provider] - Time of Disposition: 19:18 Medical Decision Making - Medical Records Medical records reviewed: No: I reviewed the patient's medical records. - Ronnie Inquiry Pt receiving controlled substance: No Vital Signs: 07/14/20 18:37 07/14/20 19:00 07/14/20 19:19 Temperature 98 F 98 F 98.0 F Temperature Source Oral Oral Pulse Rate 90 Pulse Rate [Radial] 90 90 Respiratory Rate 16 16 16 Blood Pressure 160/89 H Blood Pressure [Right Arm] 160/89 H 160/89 H Blood Pressure Mean [Right Arm] 112 112 Blood Pressure Source [Right Arm] Automatic Cuff Blood Pressure Position [Right Arm] Sitting Sitting 02 Sat by Pulse Oximetry 98 98 Oxygen Delivery Method Room Air Room Air [facility] [place] - General Stated complaint: Pain in R hand, and arm Time Seen by Provider: 07/14/20 19:11 Mode of Arrival: Ambulatory Source of Information: Patient Limitations: No Limitations Description of Symptoms (Recalled from Triage Doc. by RN): to ed per pvt car with c/o pain rt hand 4th-5th fingers up arm to shoulder worse with movement x 1 week progressively getting worse. states now starting on lt side. 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 Her right ring finger and 5th finger have been going numb on her at times. She is constantly dropping things due to her symptoms. She also has elbow pain and shouder pain at times. She has been having to use her left hand more to compensate for her symptoms and now she is having similar symptoms in her left hand at times. She denies any known injuries or recent traumas. - Related Data Home Medications Medication Instructions Recorded Confirmed Albuterol Sulfate [[place] HFA 1 - 2 puffs IH Q4-6H PRN 01/21/18 01/21/19 Inhaler] Fluoxetine HCl 20 mg PO BID 01/21/18 01/21/19 Nortriptyline HCl 25 mg PO HS 01/21/18 01/21/19 Omeprazole [Omeprazole 40mg 40 mg PO DAILY 01/21/18 01/21/19 Capsule] Progesterone, Micronized 100 mg PO DAILY 01/21/18 01/21/19 [Progesterone] Ropinirole HCl [Requip] 0.5 mg PO HS 01/21/18 01/21/19 Tiotropium [place] [Spiriva 2.5 mcg INHALATION BIDP PRN 01/21/18 01/21/19 Respimat] buPROPion HCL [Wellbutrin SR 150mg 150 mg PO BID 01/21/18 01/21/19 Tablet] estradioL [Estradiol (Twice 0.05 mg TD WEEKLY 01/21/18 01/21/19 Weekly)] Hydrocod/Acet 5/325 mg [[place] 1 each PO BID 02/04/18 01/21/19 5/325mg tablet] Previous Rx's Medication Instructions Recorded cholestyramine-[place] 4 gram 4 g PO BID #231 g 03/10/18 oral powder Amoxicillin [Amoxicillin 500mg Tab] 500 mg PO TID 10 Days #30 tab 03/03/19 predniSONE [Prednisone 20mg 20 mg PO BID 5 Days #10 tab 07/14/20 Tab] Allergies Allergy/AdvReac Type Severity Reaction Status Date / Time morphine [MORPHINE] Allergy Intermediate Verified 01/21/19
[2020-07-14 19:19] VITALS: BP 160/89; PULSE 90; RESP 16; TEMP 36.7; O2SAT 98
== END 2020-07-14 19:25 | disposition home or self-care (01) ==
PROVIDERS: Emergency Provider Nurse Practitioner Family; PCP Emergency Medicine
DX: G56.01 Carpal tunnel syndrome, right upper limb (principal); G56.21 Lesion of ulnar nerve, right upper limb; J44.9 Chronic obstructive pulmonary disease, unspecified; R01.1 Cardiac murmur, unspecified; F17.210 Nicotine dependence, cigarettes, uncomplicated; Z79.899 Other long term (current) drug therapy
CPT/HCPCS: G0463; 99202

== ENCOUNTER 2022-11-22 17:38 | Emergency (ER) | payer MEDICARE, SELFPAY ==
[2022-11-22 17:39] VITALS: BP 187/71; PULSE 77; RESP 16; TEMP 36.5; O2SAT 99; BMI 31.8
--- NOTE | 2022-11-22 18:15 | HMH.EDGENADL ---
Discharge Plan Disposition Patient Disposition: Home, Self-Care Condition: Good Chief Complaint: Wound/Laceration Prescriptions Prescriptions: No Action Cholestyramine Light 4 gram powder 4 g PO BID Qty: 231 2RF Rx Instructions: administer w/meal; avoid other meds within 1hr before or 4-6hr after dose amoxicillin 500 MG tablet 500 mg PO TID 10 Days Qty: 30 0RF prednisone 20 MG tablet 20 mg PO BID 5 Days Qty: 10 0RF omeprazole 40 MG capsule,delayed release(DR/EC) 40 mg PO DAILY progesterone micronized 100 MG capsule 100 mg PO DAILY fluoxetine 20 MG tablet 20 mg PO BID bupropion HCl 150 MG tablet 150 mg PO BID ropinirole 0.5 MG tablet 0.5 mg PO HS nortriptyline 25 MG capsule 25 mg PO HS estradiol 1 EACH patch semiweekly 0.05 mg TD WEEKLY albuterol sulfate 18 GM HFA aerosol inhaler 1 - 2 puffs IH Q4-6H PRN (Reason: Shortness Of Breath Or Wheezing) tiotropium bromide 4 GM mist 2.5 mcg Inhalation BIDP PRN (Reason: Wheezing) hydrocodone-acetaminophen 1 TAB tablet 1 each PO BID Referrals Follow up/Referrals: Esau Partida MD [Primary Care Provider] - See instructions Activity Restrictions/Add. Instructions Additional Instructions/Restrictions: Follow-up with a containers sales representative or your primary care doctor within the next 2 weeks to have your finger examined. I suspect that it may be scar tissue and or a wart which may need removal by containers sales representative. Return to the emergency department if your symptoms worsen in any way. You can take [id number] Tylenol for the pain. Clinical Impressions Clinical Impression: Wart of hand Instructions Patient Instructions: Warts (Alternative Therapy) Discharge ED Provider: Yary Gardner General Adult HPI General Chief complaint: Wound/Laceration Stated complaint: something in Right index finger Time Seen by Provider: 11/22/22 18:11 Mode of Arrival: Ambulatory Source of Information: Patient Limitations: No Limitations Description of Symptoms (Recalled from ER Triage Doc. by RN): Presents to ED with complaints of right index finger pain x a few months. Concerns for foreign body. History of Present Illness HPI narrative: The patient presents to the emergency department complaining of a lesion to her distal right index finger that has been there for several months and is worsening over time. She states that it hurts when she bumps it. She has tried to open it to see whether something could drain from it. She denies any fevers. She denies any other lesions on her body. Related Data Home Medications Medication Instructions Recorded Confirmed albuterol sulfate 90 mcg/actuation 1 - 2 puffs IH Q4-6H PRN Shortness 01/21/18 01/21/19 aerosol inhaler Of Breath Or Wheezing bupropion HCl 150 mg tablet,12 hr 150 mg PO BID Depression 01/21/18 01/21/19 sustained-release estradiol 0.1 mg/24 hr semiweekly 0.05 mg TD WEEKLY MENOPAUSE 01/21/18 01/21/19 transdermal patch fluoxetine 20 mg tablet 20 mg PO BID Depression 01/21/18 01/21/19 nortriptyline 25 mg capsule 25 mg PO HS Depression 01/21/18 01/21/19 omeprazole 40 mg capsule,delayed 40 mg PO DAILY GERD 01/21/18 01/21/19 release progesterone micronized 100 mg 100 mg PO DAILY MENOPAUSE 01/21/18 01/21/19 capsule ropinirole 0.5 mg tablet 0.5 mg PO HS Restless leg 01/21/18 01/21/19 tiotropium bromide 1.25 2.5 mcg inhalation BIDP PRN 01/21/18 01/21/19 mcg/actuation mist for inhalation Wheezing hydrocodone 5 mg-acetaminophen 325 1 each PO BID Pain 02/04/18 01/21/19 mg tablet Previous Rx's Medication Instructions Recorded cholestyramine-[place] 4 gram 4 g PO BID #231 grams 03/10/18 oral powder (Cholestyramine Light) amoxicillin 500 mg tablet 500 mg PO TID 10 days #30 tabs 03/03/19 prednisone 20 mg tablet 20 mg PO BID 5 days #10 tabs 07/14/20 Allergies Allergy/AdvReac Type Severity Reaction Status Date / Time morphine [
[2022-11-22 18:23] VITALS: BP 187/71; PULSE 77; RESP 16; TEMP 36.5; O2SAT 99
== END 2022-11-22 18:25 | disposition home or self-care (01) ==
PROVIDERS: Emergency Provider Emergency Medicine; PCP Emergency Medicine
DX: L98.8 Other specified disorders of the skin and subcutaneous tissue (principal); F17.210 Nicotine dependence, cigarettes, uncomplicated
CPT/HCPCS: 99282; 99283

== ENCOUNTER 2023-05-06 17:46 | Emergency (ER) | payer MEDICARE, MEDICAID, SELFPAY ==
[2023-05-06 17:48] VITALS: BP 169/102; PULSE 76; RESP 18; TEMP 37.1; O2SAT 97; BMI 32.8
--- NOTE | 2023-05-06 18:50 | HMH.EDGENADL ---
Discharge Plan Disposition Patient Disposition: Home, Self-Care Prescriptions Prescriptions: New sulfamethoxazole-trimethoprim [Bactrim DS] 800-160 mg tablet 1 tab PO BID 5 Days Qty: 10 0RF No Action Cholestyramine Light 4 gram powder 4 g PO BID Qty: 231 2RF Rx Instructions: administer w/meal; avoid other meds within 1hr before or 4-6hr after dose amoxicillin 500 MG tablet 500 mg PO TID 10 Days Qty: 30 0RF prednisone 20 MG tablet 20 mg PO BID 5 Days Qty: 10 0RF omeprazole 40 MG capsule,delayed release(DR/EC) 40 mg PO DAILY progesterone micronized 100 MG capsule 100 mg PO DAILY fluoxetine 20 MG tablet 20 mg PO BID bupropion HCl 150 MG tablet 150 mg PO BID ropinirole 0.5 MG tablet 0.5 mg PO HS nortriptyline 25 MG capsule 25 mg PO HS estradiol 1 EACH patch semiweekly 0.05 mg TD WEEKLY albuterol sulfate 18 GM HFA aerosol inhaler 1 - 2 puffs IH Q4-6H PRN (Reason: Shortness Of Breath Or Wheezing) tiotropium bromide 4 GM mist 2.5 mcg Inhalation BIDP PRN (Reason: Wheezing) hydrocodone-acetaminophen 1 TAB tablet 1 each PO BID Referrals Follow up/Referrals: Frandy Valdes DO [Staff Physician] - See instructions Esau Partida MD [Primary Care Provider] - See instructions Activity Restrictions/Add. Instructions Additional Instructions/Restrictions: Call your family doctor to establish care for this visit to the emergency department and schedule follow-up within 48 hours to ensure improvement. If you have any worsening of your condition or any other concerning signs or symptoms, return to the emergency department or your primary care doctor for further evaluation. Clinical Impressions Clinical Impression: Cellulitis of face Discharge ED Provider: Johnathon Bajwa General Adult HPI General Chief complaint: Eye Problems Stated complaint: sore on Rt index finger and under LT eye Time Seen by Provider: 05/06/23 17:52 Mode of Arrival: Ambulatory Source of Information: Patient Limitations: No Limitations Description of Symptoms (Recalled from ER Triage Doc. by RN): c/o left eye swelling and redness for a few days, right index finger has a hard sore area for approx 6 months. History of Present Illness HPI narrative: 57-year-old female with history of high blood pressure presenting with facial and finger lesion. Patient states that they have been there for about 6 months on her finger. Painful to touch. Has not seen her family doctor about this. 2 days prior to arrival, patient also started having swelling on the left side of her face just under her eye. Tried to pop it as if it was visit, it has gotten red and swollen since that time. No fevers or chills, ocular involvement, vision changes, or any other concerns. Related Data Home Medications Medication Instructions Recorded Confirmed albuterol sulfate 90 mcg/actuation 1 - 2 puffs IH Q4-6H PRN Shortness 01/21/18 01/21/19 aerosol inhaler Of Breath Or Wheezing bupropion HCl 150 mg tablet,12 hr 150 mg PO BID Depression 01/21/18 01/21/19 sustained-release estradiol 0.1 mg/24 hr semiweekly 0.05 mg TD WEEKLY MENOPAUSE 01/21/18 01/21/19 transdermal patch fluoxetine 20 mg tablet 20 mg PO BID Depression 01/21/18 01/21/19 nortriptyline 25 mg capsule 25 mg PO HS Depression 01/21/18 01/21/19 omeprazole 40 mg capsule,delayed 40 mg PO DAILY GERD 01/21/18 01/21/19 release progesterone micronized 100 mg 100 mg PO DAILY MENOPAUSE 01/21/18 01/21/19 capsule ropinirole 0.5 mg tablet 0.5 mg PO HS Restless leg 01/21/18 01/21/19 tiotropium bromide 1.25 2.5 mcg inhalation BIDP PRN 01/21/18 01/21/19 mcg/actuation mist for inhalation Wheezing hydrocodone 5 mg-acetaminophen 325 1 each PO BID Pain 02/04/18 01/21/19 mg tablet Previous Rx's Medication Instructions Recorded cholestyramine-aspartame 4 gram 4 g PO BID #231 grams 03/10/18 oral powder (Cholestyramine Light) amoxici
[2023-05-06 19:04] VITALS: BP 185/69; PULSE 85; RESP 16; TEMP 37.1; O2SAT 99
== END 2023-05-06 19:06 | disposition home or self-care (01) ==
PROVIDERS: Emergency Provider Emergency Medicine; PCP Emergency Medicine
DX: L03.211 Cellulitis of face (principal); L98.9 Disorder of the skin and subcutaneous tissue, unspecified; I10 Essential (primary) hypertension; F17.210 Nicotine dependence, cigarettes, uncomplicated
CPT/HCPCS: 99283

== ENCOUNTER → 2023-05-27 12:11 | Outpatient (POV) | payer MEDICARE, SELFPAY | PROVIDERS: PCP Internal Medicine; Visit Provider Dermatology | DX: Z00.00 Encounter for general adult medical examination without abnormal findings (principal) ==

== ENCOUNTER 2023-06-09 14:00 | Emergency (ER) | payer MEDICARE, MEDICAID, SELFPAY ==
[2023-06-09 14:02] VITALS: BP 211/92; PULSE 83; RESP 18; TEMP 36.4; O2SAT 96; BMI 34.3
[2023-06-09 14:11] VITALS: BP 211/92; PULSE 87; RESP 18; O2SAT 96
--- NOTE | 2023-06-09 14:22 | XR_ITS ---
PROCEDURE INFORMATION: Exam: XR Left Clavicle, Complete Exam date and time: 06/09/2023 2:29 PM Age: 58 years old Clinical indication: Injury or trauma; Fall; Blunt trauma (contusions or hematomas); Shoulder; Left TECHNIQUE: Imaging protocol: Radiologic exam of the left clavicle. Complete exam. Views: Any number of views. COMPARISON: CR XR HUMERUS LT 06/09/2023 2:24 PM FINDINGS: Bones/joints: No fracture, deformity or malalignment. Mild degenerative changes left AC joint. Soft tissues: Normal. IMPRESSION: Negative exam. No acute bony abnormalities.
--- NOTE | 2023-06-09 14:22 | XR_ITS ---
PROCEDURE INFORMATION: Exam: XR Left Humerus Exam date and time: 06/09/2023 2:24 PM Age: 58 years old Clinical indication: Injury or trauma; Fall; Blunt trauma (contusions or hematomas); Arm, upper; Left TECHNIQUE: Imaging protocol: Radiologic exam of the left humerus. Views: 2 or more views. COMPARISON: CR Shoulder L 06/09/2023 2:23 PM FINDINGS: Bones/joints: Normal.No fracture or deformity. Soft tissues: Normal. IMPRESSION: Negative exam. No abnormalities detected.
--- NOTE | 2023-06-09 14:22 | XR_ITS ---
PROCEDURE INFORMATION: Exam: XR Left Shoulder Exam date and time: 06/09/2023 2:23 PM Age: 58 years old Clinical indication: Injury or trauma; Fall; Blunt trauma (contusions or hematomas); Shoulder and elbow; Left TECHNIQUE: Imaging protocol: Radiologic exam of the left shoulder. Views: 2 or more views. COMPARISON: CR CXR2V XR chest 2V 01/21/2018 8:41 PM FINDINGS: Bones/joints: There are mild degenerative changes at the AC joint and glenohumeral joint with mild joint space narrowing and subchondral sclerosis. There is no fracture, dislocation or malalignment. Soft tissues: Normal. IMPRESSION: Mild degenerative changes left shoulder joint. No acute abnormalities.
--- NOTE | 2023-06-09 14:22 | XR_ITS ---
PROCEDURE INFORMATION: Exam: XR Left Elbow Exam date and time: 06/09/2023 2:25 PM Age: 58 years old Clinical indication: Injury or trauma; Fall; Blunt trauma (contusions or hematomas); Elbow; Left TECHNIQUE: Imaging protocol: Radiologic exam of the left elbow. Views: 3 or more views. COMPARISON: CR XR HUMERUS LT 06/09/2023 2:24 PM FINDINGS: Bones/joints: Osseous structures are intact. No fracture or malalignment. Visualized joint surfaces are preserved. Soft tissues: There is a displaced anterior fat pad suggesting underlying joint effusion and raises concern for radiographically occult fracture. IMPRESSION: Evidence of a joint effusion raising concern for occult intra-articular fracture. CT examination of the elbow recommended for further assessment.
[2023-06-09 14:30] VITALS: BP 161/100; PULSE 82; RESP 18; O2SAT 95
[2023-06-09 15:01] VITALS: BP 193/85; PULSE 80; O2SAT 95
--- NOTE | 2023-06-09 15:17 | HMH.EDGENADL ---
Discharge Plan Disposition Patient Disposition: Home, Self-Care Prescriptions Prescriptions: No Action Cholestyramine Light 4 gram powder 4 g PO BID Qty: 231 2RF Rx Instructions: administer w/meal; avoid other meds within 1hr before or 4-6hr after dose albuterol sulfate 90 mcg/actuation HFA aerosol inhaler 1 inh inhalation Q4-6H PRN (Reason: Shortness Of Breath Or Wheezing) Qty: 8.5 2RF omeprazole 40 mg capsule,delayed release(DR/EC) 40 mg PO DAILY Qty: 30 0RF tiotropium bromide 1.25 mcg/actuation mist 2 inh Inhalation DAILY Qty: 4 0RF prednisone 20 MG tablet 20 mg PO BID 5 Days Qty: 10 0RF sulfamethoxazole-trimethoprim [Bactrim DS] 800-160 mg tablet 1 tab PO BID 5 Days Qty: 10 0RF progesterone micronized 100 MG capsule 100 mg PO DAILY fluoxetine 20 MG tablet 20 mg PO BID bupropion HCl 150 MG tablet 150 mg PO BID ropinirole 0.5 MG tablet 0.5 mg PO HS nortriptyline 25 MG capsule 25 mg PO HS estradiol 1 EACH patch semiweekly 0.05 mg TD WEEKLY hydrocodone-acetaminophen 1 TAB tablet 1 each PO BID Referrals Follow up/Referrals: Frandy Valdes DO [Primary Care Provider] - See instructions Activity Restrictions/Add. Instructions Additional Instructions/Restrictions: At this time it was felt you are safe to be discharged home. If new or worsening symptoms please do not hesitate to return the emergency department. Please follow-up with Dr. Valdes on the second as discussed for repeat physical exam and evaluation of your elbow. Clinical Impressions Clinical Impression: Effusion of elbow, Fall Discharge ED Provider: Edilson Hughes General Adult HPI <Edilson Hughes MD - Last Filed: 06/09/23 15:56> General Chief complaint: Fall Stated complaint: [id number] fell and injured lt arm and shoulder Time Seen by Provider: 06/09/23 14:25 Mode of Arrival: Family Vehicle Source of Information: Patient and Medical Record Limitations: No Limitations Description of Symptoms (Recalled from ER Triage Doc. by RN): Pt c/o left shoulder and elbow pain after fall yesterday. States it is painful and difficult to raise shoulder and flex & extend elbow. Denies any blood thinner use. She walks with a cane typically. Denies LOC. She took Tylenol this morning, but still in pain now. History of Present Illness HPI narrative: This 58-year-old female presents to the ER after a fall yesterday. She states she lost her balance and fell in a twisting motion landing on her left side yesterday. She states she was able to deal with the pain yesterday and Just trying to move the arm for it to improve, however today her pain is persistent and she has discomfort straightening the elbow and raising the shoulder. She states that her forearm and up are painful. Patient did take Tylenol this morning but continues to have pain. Review of systems otherwise negative. She denies hitting her head or losing consciousness, she does not take any blood thinners. Related Data Home Medications Medication Instructions Recorded Confirmed bupropion HCl 150 mg tablet,12 hr 150 mg PO BID Depression 01/21/18 01/21/19 sustained-release estradiol 0.1 mg/24 hr semiweekly 0.05 mg TD WEEKLY MENOPAUSE 01/21/18 01/21/19 transdermal patch fluoxetine 20 mg tablet 20 mg PO BID Depression 01/21/18 01/21/19 nortriptyline 25 mg capsule 25 mg PO HS Depression 01/21/18 01/21/19 progesterone micronized 100 mg 100 mg PO DAILY MENOPAUSE 01/21/18 01/21/19 capsule ropinirole 0.5 mg tablet 0.5 mg PO HS Restless leg 01/21/18 01/21/19 hydrocodone 5 mg-acetaminophen 325 1 each PO BID Pain 02/04/18 01/21/19 mg tablet Previous Rx's Medication Instructions Recorded cholestyramine-aspartame 4 gram 4 g PO BID #231 grams 03/10/18 oral powder (Cholestyramine Light) prednisone 20 mg tablet 20 mg PO BID 5 days #10 tabs 07/14/20 sulfamethoxazole 800 1 tab PO BID 5 days #10 tabs 05/06/23 mg-trimethoprim 16
--- NOTE | 2023-06-09 15:24 | XR_ITS ---
PROCEDURE INFORMATION: Exam: XR Left Forearm Exam date and time: 06/09/2023 3:34 PM Age: 58 years old Clinical indication: Pain; Lower or forearm; Left; Additional info: Fall ttp TECHNIQUE: Imaging protocol: Radiologic exam of the left forearm. Views: 2 views. COMPARISON: CR XR ELBOW LT MIN 3V 06/09/2023 2:25 PM FINDINGS: Bones/joints: Osseous structures are intact. No fracture or malalignment. Visualized joint surfaces are preserved. Soft tissues: Unremarkable. IMPRESSION: Negative exam. No acute bony abnormalities.
[2023-06-09 15:30] VITALS: BP 199/100; PULSE 76; O2SAT 95
--- NOTE | 2023-06-09 15:36 | PC.NURSE ---
rad at bedside
--- NOTE | 2023-06-09 15:58 | PC.NURSE ---
posterior long arm splint applied to left arm; pt tolerated well. Education given on how to care for splint until seen in ortho office.
[2023-06-09 16:09] VITALS: BP 193/85; PULSE 74; RESP 20; TEMP 36.7; O2SAT 95
== END 2023-06-09 16:09 | disposition home or self-care (01) ==
PROVIDERS: Emergency Provider Emergency Medicine; PCP Internal Medicine
DX: M25.422 Effusion, left elbow (principal); M25.512 Pain in left shoulder; F17.210 Nicotine dependence, cigarettes, uncomplicated
CPT/HCPCS: 73000; 73030; 73060; 73080; 73090; 99285

== ENCOUNTER 2023-06-19 22:51 | Outpatient (CLI) | payer MEDICARE, SELFPAY ==
[2023-06-19 16:15] LABS: Basophils % 0.6 % (0.1-2.0); Eosinophils # 0.1 K/mm3 (0.0-0.4); Eosinophils % 1.4 % (0.1-12.0); Hematocrit 52.5 % (37.0-47.0); Hemoglobin 16.6 g/dL (12.2-16.2); Lymphocytes # 2.4 K/mm3 (0.7-4.5); Lymphocytes % 35.4 % (10-50); Mean Corpuscular HGB Conc 31.6 g/dL (31.8-35.4); Mean Corpuscular Hemoglobin 33.7 pg (27.0-31.2); Mean Corpuscular Volume 106.9 fl (81-99); Mean Platelet Volume 9.5 fl (7.4-10.4); Monocytes # 0.3 K/mm3 (0.1-1.0); Monocytes % 4.8 % (1.7-9.3); Neutrophils % 57.8 % (37.0-80.0); Platelet Count 220 K/mm3 (142-424); Red Blood Count 4.91 M/mm3 (4.20-5.40); Red Cell Distribution Width 13.8 % (11.5-17.5); White Blood Count 6.9 K/mm3 (4.8-10.8)
[2023-06-19 16:35] LABS: Alanine Aminotransferase 15 U/L (12-78); Albumin Level 4.1 g/dl (3.5-5.0); Albumin/Globulin Ratio 1.6 (1.1-1.8); Alkaline Phosphatase 91 U/L (38-126); Anion Gap 6.9 mEq/L (5-15); Aspartate Amino Transferase 21 U/L (14-36); Bilirubin,Total 0.3 mg/dl (0.2-1.3); Blood Urea Nitrogen 15 mg/dl (7-17); Carbon Dioxide 37 mmol/L (22.0-30.0); Chloride 99 mmol/L (98-107); Chol/HDL Ratio 3.4 (1-3.5); Cholesterol 218 mg/dl (140-200); Estimated Glomerular Filt Rate 85 ml/min (>60); GFR (African American) 103 ML/MIN (>60); Globulin 2.6 g/dL (1.3-3.2); Glucose 87 mg/dl (74-100); HDL Cholesterol 64 mg/dl (40-60); Potassium 4.9 mmoL/L (3.5-5.1); Sodium 138 mmol/L (136-145); Total Protein,Serum 6.7 g/dl (6.3-8.2); Triglycerides 120 mg/dl (30-150); VLDL Cholesterol 24 mg/dL (0-40)
[2023-06-19 16:46] LABS: Direct LDL Cholesterol 118.57 mg/dL (100-129)
[2023-06-19 16:53] LABS: Free T4 (Free Thyroxine) 1.35 ng/dl (0.78-2.19)
[2023-06-19 16:55] LABS: 25-OH Vitamin D, Total < 12.8 ng/mL (30-100)
[2023-06-19 17:06] LABS: Thyroid Stimulating Hormone 1.61 uIU/mL (0.465-4.68)
== END 2023-06-19 23:59 ==
PROVIDERS: PCP Internal Medicine; Visit Provider Internal Medicine
DX: I10 Essential (primary) hypertension; R79.1 Abnormal coagulation profile; E55.9 Vitamin D deficiency, unspecified; Z79.899 Other long term (current) drug therapy
CPT/HCPCS: 80053; 80061; 82306; 84439; 84443; 85025

== ENCOUNTER 2023-06-24 11:43 | Outpatient (CLI) | payer MEDICARE, SELFPAY ==
--- NOTE | 2023-06-24 11:49 | XR_ITS ---
FINAL REPORT CLINICAL HISTORY: Fall, pain, follow up FINDINGS: Left elbow Three views were obtained. There is a joint effusion or hemarthrosis. There is irregularity of the radial head worrisome for a nondisplaced fracture. Mild degenerative changes are present. IMPRESSION: Findings worrisome for a nondisplaced fracture. Reviewed, Interpreted and Dictated by Josep Bishop III, MD Transcribed by Raquel Elizalde Authenticated and [facility]
--- NOTE | 2023-06-24 11:49 | XR_ITS ---
FINAL REPORT CLINICAL HISTORY: Pain, immobility, follow up FINDINGS: Left forearm Two views were obtained. There is a joint effusion or hemarthrosis. There is irregularity of the radial head worrisome for a nondisplaced fracture. Mild degenerative changes are present. IMPRESSION: Findings worrisome for a nondisplaced fracture. Reviewed, Interpreted and Dictated by Josep Bishop III, MD Transcribed by Raquel Elizalde Authenticated and [facility]
== END 2023-06-24 23:59 ==
PROVIDERS: PCP Internal Medicine; Visit Provider Internal Medicine
DX: W19.XXXA Unspecified fall, initial encounter; M25.422 Effusion, left elbow
CPT/HCPCS: 73070; 73090

== ENCOUNTER 2023-06-24 12:59 | Outpatient (CLI) | payer MEDICARE, SELFPAY ==
[2023-06-24 15:59] LABS: Vitamin B12 353 pg/mL (239-931)
[2023-06-24 16:00] LABS: Folate 5.89 ng/mL
== END 2023-06-24 23:59 ==
LOC: RAD 13:00
PROVIDERS: PCP Internal Medicine; Visit Provider Internal Medicine
DX: D75.89 Other specified diseases of blood and blood-forming organs (principal); M25.532 Pain in left wrist; M25.432 Effusion, left wrist; W19.XXXA Unspecified fall, initial encounter
CPT/HCPCS: 73070; 73090; 82607; 82746

== ENCOUNTER 2023-07-10 13:51 | Outpatient (CLI) | payer MEDICARE, SELFPAY ==
--- NOTE | 2023-07-10 13:51 | CT_ITS ---
FINAL REPORT TECHNIQUE: Thin section axial images were obtained from the lung apices to the upper abdomen by computed tomography. Reformatted images were obtained and reviewed. This study was performed with techniques to keep radiation doses al low as reasonably achievable (ALARA). Individualized dose reduction techniques using automated exposure control or adjustment of mA and/or kV according to the patient's size were employed. CLINICAL HISTORY: lung cancer screening current smoker 1ppd x45 years COMPARISON: None FINDINGS: CHEST CT LOW DOSE HISTORY: 58-year-old female, current smoker, [id number] history. CTDI vol (mGy): 2.9 DLP (mGy-cm): 91.43 There is no axillary adenopathy. There is no mediastinal or hilar mass or adenopathy. The heart is normal in size. There is no pericardial or pleural effusion. There is mild emphysema and mild pulmonary scarring. Lung window images demonstrate no suspicious infiltrate or nodule. Limited images of the upper abdomen there is a left adrenal nodule, measuring 1.3 cm in size, nonspecific but favor adenoma. This adrenal mass is responsible for the S designation. IMPRESSION: Lung-RADS category 1S. Recommend 12 month follow up low dose chest CT. Reviewed, Interpreted and Dictated by Carmelo Aguirre MD Transcribed by Corinna Boss Authenticated and [facility]
== END 2023-07-10 23:59 ==
LOC: RAD 13:51
PROVIDERS: PCP Internal Medicine; Visit Provider Internal Medicine
DX: F17.219 Nicotine dependence, cigarettes, with unspecified nicotine-induced disorders (principal); Z12.2 Encounter for screening for malignant neoplasm of respiratory organs
CPT/HCPCS: 71271

== ENCOUNTER 2023-07-22 08:11 | Outpatient (CLI) | payer MEDICARE, SELFPAY ==
--- NOTE | 2023-07-22 08:11 | MM_ITS ---
PROCEDURE INFORMATION: Exam: MG Bilateral Screening 3D Mammography Exam date and time: 07/22/2023 8:19 AM Age: 58 years old Clinical indication: Screening examination TECHNIQUE: Imaging protocol: Bilateral Screening tomosynthesis and 2D mammography including computer-aided detection (CAD) when performed. COMPARISON: No relevant prior studies available. FINDINGS: MAMMOGRAPHY: Breast composition: The breasts are heterogeneously dense, which may obscure small masses. Mass: None. Architectural distortion: None. Calcifications: No suspicious calcifications. Asymmetric density: None. Skin thickening: None. Axillary adenopathy: None. IMPRESSION: No mammographic evidence of malignancy. Annual screening is recommended unless otherwise clinically indicated. ASSESSMENT: BI-RADS Category 1: Negative
== END 2023-07-22 23:59 ==
LOC: RAD 08:11
PROVIDERS: PCP Internal Medicine; Visit Provider Internal Medicine
DX: Z12.31 Encounter for screening mammogram for malignant neoplasm of breast (principal)
CPT/HCPCS: 77063; 77067

== ENCOUNTER 2023-07-23 17:30 | Emergency (ER) | payer MEDICARE, SELFPAY ==
[2023-07-23 17:40] VITALS: BP 196/100; PULSE 79; RESP 16; TEMP 36.6; O2SAT 98; BMI 33.6
[2023-07-23 18:00] VITALS: BP 160/113; PULSE 84; RESP 20; O2SAT 96
--- NOTE | 2023-07-23 18:01 | XR_ITS ---
PROCEDURE INFORMATION: Exam: XR Right Forearm Exam date and time: 07/23/2023 6:08 PM Age: 58 years old Clinical indication: Pain; Lower or forearm; Right; Additional info: Fall, injury TECHNIQUE: Imaging protocol: Radiologic exam of the right forearm. Views: 2 views. COMPARISON: CR XR WRIST RT 2V 12/16/2023 18:06 FINDINGS: Bones/joints: No acute fracture or dislocation. Soft tissues: Normal. IMPRESSION: No acute fracture or dislocation.
--- NOTE | 2023-07-23 18:01 | XR_ITS ---
PROCEDURE INFORMATION: Exam: XR Right Wrist Exam date and time: 07/23/2023 6:06 PM Age: 58 years old Clinical indication: Pain; Wrist; Right; Additional info: Fall, injury TECHNIQUE: Imaging protocol: Radiologic exam of the right wrist. Views: 3 or more views. COMPARISON: CR XR HAND RT MIN 3V 12/16/2023 18:04 FINDINGS: Bones/joints: Mild cystic degenerative changes of the proximal carpal row. No acute fracture or dislocation. Soft tissues: Normal. IMPRESSION: No acute fracture or dislocation.
--- NOTE | 2023-07-23 18:01 | XR_ITS ---
PROCEDURE INFORMATION: Exam: XR Right Hand Exam date and time: 07/23/2023 6:04 PM Age: 58 years old Clinical indication: Pain; Hand; Right; Additional info: Fall, injury TECHNIQUE: Imaging protocol: Radiologic exam of the right hand. Views: 3 or more views. COMPARISON: No relevant prior studies available. FINDINGS: Bones/joints: No acute fracture or dislocation. Soft tissues: Soft tissue swelling of distal index finger. IMPRESSION: No acute fracture or dislocation.
--- NOTE | 2023-07-23 18:02 | HMH.EDGENADL ---
Discharge Plan Disposition Patient Disposition: Home, Self-Care Prescriptions Prescriptions: No Action albuterol sulfate 90 mcg/actuation HFA aerosol inhaler 1 inh inhalation Q4-6H PRN (Reason: Shortness Of Breath Or Wheezing) Qty: 8.5 2RF omeprazole 40 mg capsule,delayed release(DR/EC) 40 mg PO DAILY Qty: 30 0RF ketoconazole 2 % cream topical ketoconazole 2 % shampoo topical fluoxetine 20 mg tablet 20 mg PO BID Qty: 60 2RF Referrals Follow up/Referrals: Kailash Lopez DO [Staff Physician] - See instructions Frandy Valdes DO [Primary Care Provider] - See instructions Activity Restrictions/Add. Instructions Additional Instructions/Restrictions: Please follow-up with Dr. Lopez in 1 to 2 weeks without any significant improvement. You may wear your Velcro wrist splint as needed for comfort you may take Tylenol and ibuprofen as needed for your symptoms. Clinical Impressions Clinical Impression: Right wrist sprain Discharge ED Provider: Richard Araujo General Adult HPI General Chief complaint: Extremity Injury, Upper Stated complaint: AO 07/22 17:30 right wrist swelling pain Time Seen by Provider: 07/23/23 17:59 Mode of Arrival: Ambulatory Source of Information: Patient Limitations: No Limitations Description of Symptoms (Recalled from ER Triage Doc. by RN): pt states she tripped over a cord yestderday and fell. Pt c/o R wrist pain. pts pulses and sensation intact. pt has full ROM of her wrist. pain is 9/10 and sharp/throbbing in nature. History of Present Illness HPI narrative: Patient is a 58-year-old female presents today with right hand and wrist and forearm injury after a fall yesterday. States she was walking between 2 rooms that had a difference in height and she mechanically tripped falling onto her right hand. She had some immediate pain but overnight it had increasing swelling she took some Tylenol at that time but has not had anything today. Denies any changes in function including motor or sensory changes. Related Data Home Medications Medication Instructions Recorded Confirmed ketoconazole 2 % shampoo topical 06/17/23 07/18/23 ketoconazole 2 % topical cream applic topical 06/17/23 07/18/23 Previous Rx's Medication Instructions Recorded albuterol sulfate 90 mcg/actuation 1 inh inhalation Q4-6H PRN 05/15/23 aerosol inhaler Shortness Of Breath Or Wheezing #8.5 grams omeprazole 40 mg capsule,delayed 40 mg PO DAILY GERD #30 caps 05/15/23 release fluoxetine 20 mg tablet 20 mg PO BID Depression #60 tabs 06/17/23 Allergies Allergy/AdvReac Type Severity Reaction Status Date / Time Penicillins Allergy Severe Swelling Verified 07/18/23 13:19 of Lip/Tongue/Throat morphine [MORPHINE] Allergy Intermediate Verified 07/18/23 13:19 naproxen [From [facility]] Allergy Unknown SWELLING Verified 07/18/23 13:19 [facility] Disclaimer: The information contained in this section may have been updated after the patient was seen, as this information can be updated by other users. Medical History Chronic calculous cholecystitis COPD (chronic obstructive pulmonary disease) Macrocytosis Surgical History H/O elbow surgery H/O removal of cyst left cheek History of ankle surgery History of bilateral tubal ligation History of surgery on wrist Family History Other No significant family history Social History Smoking Status: Current every day smoker tobacco type: cigarettes packs per day: 1 second hand exposure: Yes alcohol intake: never substance use type: denies use current occupational status: other Travel in the last 8 weeks: None household members: spouse housing: apartment current occupational exposures/hazards: No caffeine: Yes ROS Obtained: Yes All systems reviewed & no additional complaints except as documented Physical Exam General General appearance: alert Respiratory Respiratory exam: Present normal lung sounds bilaterally Cardiovascular Cardiovascular exam: Present regular rate Extremities Exam Extremities exam: Present other (Right upper extremity there is tenderness in the mid forearm all the way through the proximal aspect of the hand there is some small soft tissue swelling she is neurovascular intact has normal flexion extension and) Neurological Exam Neurological exam: Present alert Medical Decision Making Ronnie Inquiry Pt receiving controlled substance: No Vital Signs: 07/23/23 17:40 07/23/23 18:00 Temperature 97.9 F Temperature Source Oral Pulse Rate 84 Pulse Rate [Left] 79 Respiratory Rate 16 20 Blood Pressure 160/113 H Blood Pressure [Right Arm] 196/100 H Blood Pressure Mean 118 Blood Pressure Mean [Right Arm] 132 Blood Pressure Source [Right Arm] Automatic Cuff Blood Pressure Position [Right Arm] Sitting 02 Sat by Pulse Oximetry 98 96 Orders (Tests/Meds): ED MEDICATIONS Discontinued Medications Generic Name Dose Route Start Last Admin Trade Name Carmelita PRN Reason Stop Dose Admin Acetaminophen 1,000 mg 07/23/23 18:01 07/23/23 18:09 Acetaminophen 500mg Tab PO 07/23/23 18:02 1,000 mg ONCE ONE Administration ORDERS Category Date Time Status Forearm XR right 2 views [XR forearm RT 2V] Stat Exams 07/23/23 18:01 Taken Hand XR right minimum 3 views [XR hand RT min 3V] Stat Exams 07/23/23 18:01 Completed XR wrist RT min 3V Stat Exams 07/23/23 18:01 Completed Medical Decision Narrative: 58-year-old female presents today with right upper extremity pain and swelling in the right upper extremity in the hand wrist and forearm will get plain films to differentiate fracture dislocation versus strain. Tylenol will be administered and will reassess. Reassessment 6:37 PM x-rays performed which I personally interpreted I do not see any fractures dislocations or other acute osseous abnormality. Patient given a wrist Velcro splint for comfort advised to follow-up with orthopedic surgery in 1 to 2 weeks without significant improvement otherwise symptomatic and supportive care for discussed with Tylenol and ibuprofen and ice. She was discharged in stable condition. Diagnosis wrist sprain. Critical Care Critical Care Time Critical Care Time: No
[2023-07-23] MEDS: ACETAMINOPHEN 500MG TAB 1000 MG PO (18:09)
[2023-07-23 18:55] VITALS: BP 157/101; PULSE 80; RESP 18; TEMP 36.6
--- NOTE | 2023-07-26 05:42 | PC.NURSE ---
chart accessed for ortho paperwork
== END 2023-07-23 18:57 | disposition home or self-care (01) ==
PROVIDERS: Emergency Provider Student in an Organized Health Care Education/Training Program; PCP Internal Medicine
DX: S63.501A Unspecified sprain of right wrist, initial encounter (principal); J44.9 Chronic obstructive pulmonary disease, unspecified; F17.210 Nicotine dependence, cigarettes, uncomplicated; W01.0XXA Fall on same level from slipping, tripping and stumbling without subsequent striking against object, initial encounter
CPT/HCPCS: 73090; 73110; 73130; 99284

== ENCOUNTER 2023-08-22 16:03 | Emergency (ER) | payer MEDICARE, SELFPAY ==
[2023-08-22 17:10] VITALS: BP 147/86; PULSE 74; RESP 18; TEMP 36.8; O2SAT 96; BMI 34.7
--- NOTE | 2023-08-22 17:11 | PC.NURSE ---
Pt went to [facility] to have surgery in [place] at [facility]. She went on 07/29/2023 for surgery to have a knot removed. She went back on 08/07/2023 to remove bandages. She stated was told that stitches are dissolvable. She came in to have stitches removed. I removed two stitches from the right index finger.
[2023-08-22 17:29] VITALS: BP 147/86; PULSE 74; RESP 18; TEMP 36.8; O2SAT 96
== END 2023-08-22 17:29 | disposition home or self-care (01) ==
LOC: UTC 16:05
PROVIDERS: Emergency Provider Nurse Practitioner Family; PCP Internal Medicine
DX: Z48.02 Encounter for removal of sutures (principal)

== ENCOUNTER 2023-10-22 07:40 | Day surgery (SDC) | payer MEDICARE, MEDICAID, SELFPAY ==
[2023-10-20 13:24] VITALS: BMI 34.7
[2023-10-22 08:29] VITALS: BP 154/70; PULSE 71; RESP 18; TEMP 36.1; O2SAT 93
[2023-10-22] MEDS: LACTATED RINGERS 1000ML 1,000 ML 25 ML IV (08:43)
[2023-10-22 09:04] LABS: POC Glucose,Bedside 96 (70-110)
--- NOTE | 2023-10-22 09:05 | EXP.ANES.CKL ---
[facility] Disclaimer: The information contained in this section may have been updated after the patient was seen, as this information can be updated by other users. Medical History (Updated 10/20/23 @ 13:28 by Gina Chun RN) Asthma Macrocytosis Chronic calculous cholecystitis COPD (chronic obstructive pulmonary disease) Surgical History History of cholecystectomy History of ankle surgery H/O elbow surgery History of surgery on wrist H/O removal of cyst History of bilateral tubal ligation Family History Other No significant family history Social History (Updated 10/20/23 @ 13:28 by Gina Chun RN) Smoking Status: Current every day smoker tobacco type: cigarettes packs per day: 1 second hand exposure: Yes alcohol intake: current alcohol intake frequency: 0-2 drinks per day substance use type: denies use current occupational status: other Travel in the last 8 weeks: None household members: spouse housing: apartment current occupational exposures/hazards: No caffeine: Yes [facility] Anesthesia Checklist Patient Identification Patient Identification: Arm Band and Verbal (Name & ) Structural Data Admitted From: Home Planned Operative Procedure/s: Colonoscopy Consent for Planned Operative Procedure(s) Verified: Yes Verified Documents: Surgical Consent and History and Physical NPO Status Verified Time NPO: 04:00 Chart Verification Results Verified: CBC and BMP Additional verifications Fingerstick Blood Glucose: 96 Patient : No Anesthesia Reactions: No Cardiovascular Assessment Heart Sounds: S1 & S2 Pulse Rhythm: Irregular Peripheral Edema: No Airway Assessment Mallampati Score:: Class II C-Spine Mobility Assessed: Yes (FROM) TMJ Mobility Assessed: Yes Dentition: Poor Dentition (Most teeth missing. Nothing loose per pt.) Neurological Assessment Level of Consciousness: Awake, Alert, Appropriate and Follows Commands Hx Seizures: No Numbness or tingling in extremities: No Anesthesia Plan Anesthesia Risk discussed: Yes Anesthesia Plan: Verified ASA Class: III Anesthesia Type: MAC
[2023-10-22 09:17] VITALS: O2SAT 100
--- NOTE | 2023-10-22 09:33 | HMH.SCOPE ---
Procedure: Date: 10/22/23 Patient Date of :: 1965 Procedure Performed:: Colonoscopy Indications:: Patient is a 58-year-old who presents for surveillance colonoscopy for history of polyps in the past Performing Provider:: Daniel Morris MD Referring Provider:: Frandy Valdes DO Sedation:: See RN records Procedure:: After placing the patient in the left lateral decubitus position, the colonoscopy was gently inserted into the rectum and under direct visualization advanced to the cecum which was identified by transillumination in the right lower quadrant, identification of the ileocecal valve, appendiceal orifice, and cecal strap. Color, texture, mucosa, and anatomy of the colon were carefully examined with the scope. Findings:: The quality of the bowel preparation was fair. There was a medium sized (7 to 8 mm) polyp in the cecum. The polyp was sessile. The polyp was removed with a cold snare. Polyp was retrieved. There was a small sized (4 to 6 mm) polyp in the transverse colon. The polyp was sessile. The polyp was removed with a cold snare. Polyp was retrieved. There was diffuse erythema of the rectum and distal sigmoid colon. Biopsies were obtained with a cold forceps for histology.. On retroflexion view internal hemorrhoids were seen. Impression: Polyp of cecum Polyp of transverse colon Erythematous mucosa of the distal colon Fair bowel preparation Recommendations:: Await pathology result Repeat colonoscopy in 3 years for surveillance purposes Complications:: None Estimated blood obtained (mL): 0 Colonoscopy Component Colonoscopy Component Was a colonoscopy performed during today's procedure?: Yes Recommended follow up colonoscopy of at least 10 years?: Yes
[2023-10-22 09:37] VITALS: BP 146/78; PULSE 83; RESP 18; TEMP 36.7; O2SAT 95
[2023-10-22 09:47] VITALS: BP 139/75; PULSE 82; RESP 18; O2SAT 98
[2023-10-22 09:57] VITALS: BP 146/79; PULSE 86; RESP 18; O2SAT 98
== END 2023-10-22 10:09 | disposition home or self-care (01) ==
PROVIDERS: PCP Internal Medicine; Visit Provider Internal Medicine
PROC: 0DJD8ZZ Inspection of Lower Intestinal Tract, Via Natural or Artificial Opening Endoscopic (ICD-10-PCS; CPT 45378; principal; 2023-10-22 09:00)
DX: Z12.11 Encounter for screening for malignant neoplasm of colon (principal); Z86.010 Personal history of colon polyps; K64.8 Other hemorrhoids; D12.3 Benign neoplasm of transverse colon; D12.0 Benign neoplasm of cecum; Z79.899 Other long term (current) drug therapy
CPT/HCPCS: 45385; 82962

== ENCOUNTER 2023-12-23 17:45 | Emergency (ER) | payer MEDICARE, MEDICAID, SELFPAY ==
[2023-12-23 17:46] VITALS: BP 171/77; PULSE 74; RESP 20; TEMP 36.5; O2SAT 94; BMI 33.6
--- NOTE | 2023-12-23 18:29 | CT_ITS ---
PROCEDURE INFORMATION: Exam: CTA Head With Contrast, Arteriography Exam date and time: 12/23/2023 7:26 PM Age: 58 years old Clinical indication: Pain; Headache; Additional info: Global RESENDEZ intermittent vision loss TECHNIQUE: Imaging protocol: Computed tomographic angiography of the head with contrast. Exam focused on the arteries. 3D rendering (Not supervised by radiologist): MIP and/or 3D reconstructed images were created by the technologist. Radiation optimization: All CT scans at this facility use at least one of these dose optimization techniques: automated exposure control; mA and/or kV adjustment per patient size (includes targeted exams where dose is matched to clinical indication); or iterative reconstruction. Contrast material: ISOUVE 370; Contrast volume: 100 ml; Contrast route: INTRAVENOUS (IV); COMPARISON: CT HEAD/BRAIN WO CON 12/23/2023 7:21 PM FINDINGS: ANTERIOR CIRCULATION: Right internal carotid artery: An infundibulum measures 2.6 mm of the inferior wall of the right intracranial ICA clinoid segment. Moderate calcific atherosclerotic disease of the right intracranial ICA resulting in moderate stenosis of the ophthalmic and clinoid segments. Right middle cerebral artery: No occlusion or significant stenosis. No aneurysm. Right anterior cerebral artery: No occlusion or significant stenosis. No aneurysm. Left internal carotid artery: Moderate calcific atherosclerotic disease of the left intracranial ICA resulting in moderate stenosis of the ophthalmic and clinoid segments. Left middle cerebral artery: No occlusion or significant stenosis. No aneurysm. Left anterior cerebral artery: No occlusion or significant stenosis. No aneurysm. POSTERIOR CIRCULATION: Right vertebral artery: No occlusion or significant stenosis. No aneurysm. Left vertebral artery: No occlusion or significant stenosis. No aneurysm. Basilar artery: No occlusion or significant stenosis. No aneurysm. Right posterior cerebral artery: No occlusion or significant stenosis. No aneurysm. Left posterior cerebral artery: No occlusion or significant stenosis. No aneurysm. Brain: No definite mass, mass effect, or midline shift. Cerebral ventricles: No ventriculomegaly. Bones/joints: Unremarkable. No acute fracture. Soft tissues: Unremarkable. IMPRESSION: 1. An infundibulum measures 2.6 mm of the inferior wall of the right intracranial ICA clinoid segment (image 45 of series 5). 2. Moderate calcific atherosclerotic disease of the right intracranial ICA resulting in moderate stenosis of the ophthalmic and clinoid segments. 3. Moderate calcific atherosclerotic disease of the left intracranial ICA resulting in moderate stenosis of the ophthalmic and clinoid segments.
--- NOTE | 2023-12-23 18:29 | CT_ITS ---
PROCEDURE INFORMATION: Exam: CTA Neck With Contrast Exam date and time: 12/23/2023 7:26 PM Age: 58 years old Clinical indication: Pain; Headache; Additional info: Global RESENDEZ intermittent vision loss TECHNIQUE: Imaging protocol: Computed tomographic angiography of the neck with contrast. Exam focused on the cervical segments of the vasculature. 3D rendering (Not supervised by radiologist): MIP and/or 3D reconstructed images were created by the technologist. Radiation optimization: All CT scans at this facility use at least one of these dose optimization techniques: automated exposure control; mA and/or kV adjustment per patient size (includes targeted exams where dose is matched to clinical indication); or iterative reconstruction. Contrast material: ISOUVE 370; Contrast volume: 100 ml; Contrast route: INTRAVENOUS (IV); COMPARISON: CT ANGIO HEAD 12/23/2023 7:26 PM FINDINGS: Right common carotid artery: Moderate calcific atherosclerotic disease of the right carotid bulb resulting in moderate stenosis. Right internal carotid artery: No stenosis of the extracranial segment. No dissection or occlusion. Right external carotid artery: No occlusion or stenosis of the origin. Left common carotid artery: Moderate calcific atherosclerotic disease of the left carotid bulb resulting in mild stenosis. Left internal carotid artery: No stenosis of the extracranial segment. No dissection or occlusion. Left external carotid artery: No occlusion or stenosis of the origin. Right vertebral artery: No stenosis. No dissection or occlusion. Left vertebral artery: No stenosis. No dissection or occlusion. Soft tissues: Normal. No significant soft tissue swelling. Bones/joints: Moderate loss of intervertebral disc space with degenerative changes at C4 through C7. IMPRESSION: 1. Moderate calcific atherosclerotic disease of the right carotid bulb resulting in moderate stenosis. 2. Moderate calcific atherosclerotic disease of the left carotid bulb resulting in mild stenosis. REFERENCES: NASCET CRITERIA. The degree of stenosis in the cervical segment of the internal carotid artery is based on NASCET criteria. Normal is no stenosis. Mild is less than 50% stenosis. Moderate is 50-69% stenosis. Severe is 70% to 99% stenosis. Total occlusion is no detectable patent lumen.
--- NOTE | 2023-12-23 18:29 | CT_ITS ---
PROCEDURE INFORMATION: Exam: CT Head Without Contrast Exam date and time: 12/23/2023 7:21 PM Age: 58 years old Clinical indication: Pain; Headache; Additional info: Global RESENDEZ intermittent vision loss TECHNIQUE: Imaging protocol: Computed tomography of the head without contrast. Radiation optimization: All CT scans at this facility use at least one of these dose optimization techniques: automated exposure control; mA and/or kV adjustment per patient size (includes targeted exams where dose is matched to clinical indication); or iterative reconstruction. COMPARISON: No relevant prior studies available. FINDINGS: Brain: There is mild diffuse cerebral volume loss present. Multiple subcortical and deep hypoattenuating white matter foci are present, likely related to small vessel senescent changes and can also be seen with prior infectious / inflammatory insult, or prior traumatic events. No hyperattenuating foci are identified to suggest acute intracranial hemorrhage. Left parieto-occipital hypoattenuation /loss of francis-white matter differentiation suggesting ischemic process. Cerebral ventricles: No ventriculomegaly. Paranasal sinuses: Visualized sinuses are unremarkable. No fluid levels. Mastoid air cells: Visualized mastoid air cells are well aerated. Bones: Unremarkable. No acute fracture. Soft tissues: Unremarkable. IMPRESSION: 1. Multiple subcortical and deep hypoattenuating white matter foci are present, likely related to small vessel senescent changes and can also be seen with prior infectious / inflammatory insult, or prior traumatic events. 2. No hyperattenuating foci are identified to suggest acute intracranial hemorrhage. 3. Left parieto-occipital hypoattenuation / loss of francis-white matter differentiation suggesting ischemic process. ASPECTS = 8
[2023-12-23 18:30] VITALS: BP 174/94; PULSE 69; O2SAT 94
--- NOTE | 2023-12-23 18:38 | HMH.EDGENADL ---
Discharge Plan Disposition Patient Disposition: Xfer Short-Term Hosp Chief Complaint: Headache Prescriptions Prescriptions: No Action albuterol sulfate 90 mcg/actuation HFA aerosol inhaler 1 inh inhalation Q4-6H PRN (Reason: Shortness Of Breath Or Wheezing) Qty: 8.5 2RF omeprazole 40 mg capsule,delayed release(DR/EC) 40 mg PO DAILY Qty: 30 0RF ketoconazole 2 % cream 1 applic topical NEEDED PRN (Reason: *) ketoconazole 2 % shampoo 1 applic topical NEEDED PRN (Reason: DANDRUFF) fluoxetine 20 mg tablet 20 mg PO BID Qty: 60 2RF peg 3350-electrolytes [GaviLyte-G] 236-22.74-6.74 -5.86 gram recon soln 240 ml PO Q10M Qty: 4000 0RF Rx Instructions: Follow mailed instructions. Pharmacy may substitute if needed. mupirocin 2 % ointment 1 applic topical TID 7 Days Qty: 15 0RF Referrals Follow up/Referrals: Frandy Valdes DO [Primary Care Provider] - See instructions Clinical Impressions Clinical Impression: Acute CVA (cerebrovascular accident) Discharge ED Provider: Gustabo Gusman General Adult HPI General Chief complaint: Headache Stated complaint: RESENDEZ,dizzy, shaky Time Seen by Provider: 12/23/23 18:27 Mode of Arrival: Wheelchair Source of Information: Patient Limitations: No Limitations Description of Symptoms (Recalled from ER Triage Doc. by RN): PT HAS BEEN HAVING HEADACHES AND EPISODES OF BLACKING OUT AND THE SHAKES OVER THE LAST COUPLE OF YEARS AND IT HAS STEADILY GOTTEN WORSE OVER THE LAST 3 MONTHS AND TODAY THE PATIENT CAME IN [place] HER SPOUSE MADE HER AND SHE IS TIRED OF BLACKING OUT AND RUNNING INTO THINGS. PT MAIN COMPLAINT UPON TRIAGE IS HEADACHE AND IT IS FRONTAL IN LOCATION History of Present Illness HPI narrative: Patient is a 58-year-old female with past medical history of COPD not on home oxygen who presents emergency department for multiple complaints. Patient has had intermittent headaches that are global, worse in the frontal area bilaterally over the last 2 years that have been increasing in frequency. They are paroxysmal, there is associated photophobia, bilateral symptoms, global weakness however no focal weakness, no speech difficulties. What is concerning most to her is that when she has the severe pain she has had intermittent tunnel vision and then blacking out of her vision. No trauma. No anticoagulants. When she loses her vision she has bumped into things not knowing where she is going but has not fallen. She has not been evaluated extensively for this before. No chest pain, no abdominal pain, no other acute complaints at this time. Related Data Home Medications Medication Instructions Recorded Confirmed ketoconazole 2 % shampoo 1 applic topical NEEDED PRN 06/17/23 10/22/23 DANDRUFF ketoconazole 2 % topical cream 1 applic topical NEEDED PRN * 06/17/23 10/22/23 Previous Rx's Medication Instructions Recorded albuterol sulfate 90 mcg/actuation 1 inh inhalation Q4-6H PRN 05/15/23 aerosol inhaler Shortness Of Breath Or Wheezing #8.5 grams omeprazole 40 mg capsule,delayed 40 mg PO DAILY GERD #30 caps 05/15/23 release fluoxetine 20 mg tablet 20 mg PO BID Depression #60 tabs 06/17/23 mupirocin 2 % topical ointment 1 applic topical TID 7 days #15 08/22/23 grams peg 3350-electrolytes 236 240 ml PO Q10M Bowel Prep #4,000 mL 10/06/23 gram-22.74 gram-6.74 gram-5.86 gram solution (GaviLyte-G) Allergies Allergy/AdvReac Type Severity Reaction Status Date / Time Penicillins Allergy Severe Swelling Verified 10/22/23 08:28 of Lip/Tongue/Throat morphine [MORPHINE] Allergy Intermediate Verified 10/22/23 08:28 naproxen [From ALEVE] Allergy Unknown SWELLING Verified 10/22/23 08:28 [facility] Disclaimer: The information contained in this section may have been updated after the patient was seen, as this information can be updated by other users. Medical History (Updated 12/23/23 @ 21:22 by Gustabo Gusman MD) Asthma Macrocytosis Chronic calculous cholecystitis COPD (chronic obstructive pulmonary disease) Surgical History History of cholecystectomy History of ankle surgery H/O elbow surgery History of surgery on wrist H/O removal of cyst History of bilateral tubal ligation Family History Other No significant family history Social History (Updated 10/20/23 @ 13:28 by Gina Chun RN) Smoking Status: Current every day smoker tobacco type: cigarettes packs per day: 1 second hand exposure: Yes alcohol intake: current alcohol intake frequency: 0-2 drinks per day substance use type: denies use current occupational status: other Travel in the last 8 weeks: None household members: spouse housing: apartment current occupational exposures/hazards: No caffeine: Yes ROS Obtained: Yes Systems reviewed as appropriate & no additional complaints except as documented Physical Exam General General appearance: alert and in no apparent distress Head Head exam: atraumatic and normocephalic Eye Eye exam: Present PERRL, EOMI and other (Bilateral photophobia) ENT ENT exam: Present mucous membranes moist Neck Neck exam: Present normal inspection and full ROM; Absent tenderness Chest Chest inspection: Present normal inspection and symmetric chest wall rise Respiratory Respiratory exam: Present normal lung sounds bilaterally; Absent respiratory distress Cardiovascular Cardiovascular exam: Present regular rate and normal rhythm Abdominal Exam Abdominal exam: Present soft; Absent tenderness Extremities Exam Extremities exam: Present normal inspection Neurological Exam Neurological exam: Present alert and other (20/40 right eye, 20/20 left eye visual acuity, [id number] negative, right upper and lower extremity drift to bed, right inferior quadrantanopia.) Psychiatric Psychiatric exam: Present normal affect Skin Skin exam: Present warm and dry Medical Decision Making Ronnie Inquiry Pt receiving controlled substance: No Vital Signs: 12/23/23 17:46 12/23/23 18:30 12/23/23 19:01 Temperature 97.7 F Temperature Source Oral Pulse Rate 69 70 Pulse Rate [Right Radial] 74 Respiratory Rate 20 Blood Pressure 174/94 H 169/86 H Blood Pressure [Right Arm] 171/77 H Blood Pressure Mean 120 113 Blood Pressure Mean [Right Arm] 108 02 Sat by Pulse Oximetry 94 L 94 L 98 Oxygen Delivery Method Room Air Lab Data Lab Results 12/23/23 18:47: WBC 7.5, RBC 4.35, Hgb 14.8, Hct 44.8, MCV 103.0 H, MCH 34.0 H, MCHC 33.0, RDW 13.4, Plt Count 185, MPV 8.2, Neut % (Auto) 60.3, Lymph % (Auto) 32.0, [place] % (Auto) 5.0, Eos % (Auto) 1.8, Baso % (Auto) 1.0, Neut # (Auto) 4.6, Lymph # (Auto) 2.4, [place] # (Auto) 0.4, Eos # (Auto) 0.1, Baso # (Auto) 0.1, Sodium 138, Potassium 4.1, Chloride 105, Carbon Dioxide 32 H, Anion Gap 5.1, BUN 15, Creatinine 0.70, Estimated Creat Clear 116, Estimated GFR 85, Est GFR ( Amer) 103, Glucose 98, Calcium 9.5, Magnesium 1.9, Total Bilirubin 0.3, AST 20, ALT 14, Alkaline Phosphatase 75, Troponin I < 0.01, Total Protein 6.7, Albumin 3.8, Globulin 2.9, Albumin/Globulin Ratio 1.3 12/23/23 18:47 12/23/23 18:47 Orders (Tests/Meds): ED MEDICATIONS Generic Name Dose Route Start Last Admin Trade Name Freq PRN Reason Stop Dose Admin Sodium Chloride 10 ml 12/23/23 19:23 12/23/23 19:24 Sodium Chloride 0.9% 10ml Syr (Rad Only) IV 01/22/24 19:22 10 ml NEEDED PRN Administration Maintain IV Site Discontinued Medications Generic Name Dose Route Start Last Admin Trade Name Freq PRN Reason Stop Dose Admin Acetaminophen 1,000 mg 12/23/23 18:29 12/23/23 18:41 Acetaminophen 1,000mg/100ml Vial IV 12/23/23 18:30 1,000 mg ONCE ONE Administration Diphenhydramine HCl 50 mg 12/23/23 18:29 12/23/23 18:41 Diphenhydramine 50mg/Ml Vial IV 12/23/23 18:30 50 mg ONCE ONE Administration Lactated Ringer's 1,000 mls @ 999 mls/hr 12/23/23 18:29 12/23/23 18:42 Lactated Ringer's 1000 Ml Bag IV 12/23/23 19:29 999 mls/hr .Q1H1M ONE Administration Iopamidol 100 ml 12/23/23 19:23 12/23/23 19:24 Iopamidol-370 (76%);100ml Bottle IV 12/23/23 19:24 100 ml ONCE ONE Administration Prochlorperazine Edisylate 5 mg 12/23/23 18:29 12/23/23 18:41 Prochlorperazine 10mg/2ml Vial IV 12/23/23 18:30 5 mg ONCE ONE Administration Sodium Chloride 50 ml 12/23/23 19:23 12/23/23 19:24 0.9 % Sodium Chloride 50 Ml Vial IV 12/23/23 19:24 50 ml ONCE ONE Administration ORDERS Category Date Time Status CT angio head Stat Cat Scan 12/23/23 18:[address] angio neck Stat Cat Scan 12/23/23 18:[address] head/brain wo con Stat Cat Scan 12/23/23 18:29 Completed CBC w/Auto Diff [Complete Blood Count Auto Diff] Stat Lab 12/23/23 18:47 Completed CMP [Comprehensive Metabolic Panel] Stat Lab 12/23/23 18:47 Completed MG [Magnesium] Stat Lab 12/23/23 18:47 Completed Trop I [Troponin I] Stat Lab 12/23/23 18:47 Completed Troponin I Q3H Lab 12/23/23 21:30 Ordered Troponin I Q3H Lab 12/24/23 00:30 Ordered ECG Data Tracing #1: Independently interpreted by me rate is 64, rhythm is regular, axis is normal, no ST elevation in anatomical contiguous leads, QTc 401. Medical Decision Narrative: In summary patient is a 58-year-old female past medical history described above who presents emergency department for evaluation of headache, paroxysmal vision loss. Patient is hemodynamically stable nontoxic-appearing arrival, afebrile. Patient has an abnormal detailed neurologic exam. Differential diagnosis includes complex migraine, CVA, frontal headache with vasovagal symptoms secondary to pain, primary neurologic disorder, among others. Workup will be conducted with hematologic labs, CTA head and neck, noncontrasted CT scan of the head. Initial inventions include crystalloid bolus, headache cocktail. Although she has had chronic symptoms her last known normal with persistence has been over 48 hours. Initial workup reviewed by me, hematologic labs are nonactionable, initial troponin undetectably low. Noncontrasted CT scan of the head shows multiple subcortical and deep hypoattenuating white matter foci present likely related to small vessel senescent changes. No acute intracranial hemorrhage. Left parieto-occipital hypoattenuation suggesting ischemic process. Patient is well outside the window for thrombectomy or TNK at this time. CTA reads are pending. NIH of 4, right inferior quadrantanopia, drift in the right arm and right leg, partial sensory loss in the right lower. Given posterior circulation stroke the case was discussed with [facility] who graciously excepted patient for transfer for continued evaluation at this time through the stroke navigator on behalf of Dr. Gaspar. Critical Care Critical Care Time Critical Care Time: No
[2023-12-23] MEDS: PROCHLORPERAZINE 10MG/2ML VIAL 5 MG IV (18:41)
[2023-12-23] MEDS: ACETAMINOPHEN 1,000MG/100ML VIAL 1000 MG IV (18:41)
[2023-12-23] MEDS: diphenhydrAMINE 50MG/ML VIAL 50 MG IV (18:41)
[2023-12-23] MEDS: LACTATED RINGERS 1000ML 1,000 ML 999 ML IV (18:42)
--- NOTE | 2023-12-23 18:48 | ECG_ITS ---
APPROVED REPORT Exam: Resting ECG HR:64 bpm ECG Measurements Heart Rate 64 AXES IN 136 P 49 QRSd 78 QRS 15 QT 391 T 68 QTc 401 Conclusion SINUS RHYTHM NONSPECIFIC T-WAVE ABNORMALITY BORDERLINE ECG Electronically signed by : DILSHAD LLOYD, 12/24/2023 08:05:17
[2023-12-23 18:57] LABS: Basophils # 0.1 K/mm3 (0-0.2); Eosinophils # 0.1 K/mm3 (0.0-0.4); Eosinophils % 1.8 % (0.1-12.0); Hematocrit 44.8 % (37.0-47.0); Hemoglobin 14.8 g/dL (12.2-16.2); Lymphocytes # 2.4 K/mm3 (0.7-4.5); Mean Platelet Volume 8.2 fl (7.4-10.4); Monocytes # 0.4 K/mm3 (0.1-1.0); Neutrophils # 4.6 K/mm3 (1.8-7.8); Neutrophils % 60.3 % (37.0-80.0); Platelet Count 185 K/mm3 (142-424); Red Blood Count 4.35 M/mm3 (4.20-5.40); Red Cell Distribution Width 13.4 % (11.5-17.5); White Blood Count 7.5 K/mm3 (4.8-10.8)
[2023-12-23 18:58] LABS: Chloride 105 mmol/L (98-107)
[2023-12-23 18:59] LABS: Potassium 4.1 mmoL/L (3.5-5.1); Sodium 138 mmol/L (136-145)
[2023-12-23 19:01] VITALS: BP 169/86; PULSE 70; O2SAT 98
[2023-12-23 19:01] LABS: Alanine Aminotransferase 14 U/L (12-78); Alkaline Phosphatase 75 U/L (38-126); Anion Gap 5.1 mEq/L (5-15); Aspartate Amino Transferase 20 U/L (14-36); Bilirubin,Total 0.3 mg/dl (0.2-1.3); Blood Urea Nitrogen 15 mg/dl (7-17); Carbon Dioxide 32 mmol/L (22.0-30.0); Creatinine Clearance Estimated 116 mL/min (50-200); Estimated Glomerular Filt Rate 85 ml/min (>60); GFR (African American) 103 ML/MIN (>60)
[2023-12-23 19:02] LABS: Albumin Level 3.8 g/dl (3.5-5.0); Albumin/Globulin Ratio 1.3 (1.1-1.8); Calcium 9.5 mg/dl (8.4-10.2); Globulin 2.9 g/dL (1.3-3.2); Glucose 98 mg/dl (74-100); Magnesium 1.9 mg/dl (1.6-2.3); Total Protein,Serum 6.7 g/dl (6.3-8.2)
--- NOTE | 2023-12-23 19:15 | PC.NURSE ---
PT AMBULATED FROM ROOM TO BATHROOM WITH MINIMAL ASSISTANCE
--- NOTE | 2023-12-23 19:16 | PC.NURSE ---
PT VISUAL ACCUITY 20/20 BILATERAL, LEFT EYE 20/50, RIGHT EYE 20/40
[2023-12-23 19:18] LABS: Troponin I < 0.01 ng/ml (0.00-0.034)
[2023-12-23] MEDS: 0.9 % SODIUM CHLORIDE 50 ML VIAL IV (19:24)
[2023-12-23] MEDS: SODIUM CHLORIDE 0.9% 10ML SYR (RAD ONLY) 10 ML IV (19:24)
[2023-12-23] MEDS: IOPAMIDOL-370 (76%);100ML BOTTLE 100 ML IV (19:24)
--- NOTE | 2023-12-23 20:30 | PC.NURSE ---
Critical rad report received from Dr. Barraza for Dr. Gusman. Patient having acute left parietal occipital stroke. Face to face interaction with Dr. Gusman at this time.
--- NOTE | 2023-12-23 21:44 | PC.NURSE ---
[facility] declined transport due to weather. [id number]
--- NOTE | 2023-12-23 22:02 | PC.NURSE ---
Report was called to MARNIE Sepulveda at [facility]. Patient going to [address] [phone]
--- NOTE | 2023-12-23 22:17 | PC.NURSE ---
call to [facility], unable to reach by phone, dispatch contacted and will have them return our call
--- NOTE | 2023-12-23 22:19 | PC.NURSE ---
[facility] declined transport due to staff
--- NOTE | 2023-12-23 22:30 | PC.NURSE ---
[facility] will be accepting transport at this time
[2023-12-23 22:35] VITALS: BP 190/88; PULSE 61; RESP 20; TEMP 36.8; O2SAT 95
== END 2023-12-23 22:35 | disposition short-term general hospital (02) ==
PROVIDERS: Emergency Provider Emergency Medicine; PCP Internal Medicine
DX: I63.9 Cerebral infarction, unspecified (principal); R51.9 Headache, unspecified; H53.8 Other visual disturbances; R29.704 NIHSS score 4; F17.210 Nicotine dependence, cigarettes, uncomplicated; J44.9 Chronic obstructive pulmonary disease, unspecified
CPT/HCPCS: 70450; 70496; 70498; 80053; 83735; 84484; 85025; 93005; 96361; 96374; 96375; 99285; J0131; J7120; Q9967

== ENCOUNTER 2024-01-06 16:12 | Outpatient (CLI) | payer MEDICARE, MEDICAID, SELFPAY ==
[2024-01-06 13:01] LABS: Hemoglobin A1C 5.6 % (4.0-6.0)
[2024-01-06 13:31] LABS: Alanine Aminotransferase 11 U/L (12-78); Albumin/Globulin Ratio 1.4 (1.1-1.8); Alkaline Phosphatase 88 U/L (38-126); Anion Gap 10.1 mEq/L (5-15); Aspartate Amino Transferase 19 U/L (14-36); Bilirubin,Total 0.3 mg/dl (0.2-1.3); Blood Urea Nitrogen 13 mg/dl (7-17); Calcium 9.6 mg/dl (8.4-10.2); Carbon Dioxide 34 mmol/L (22.0-30.0); Chloride 102 mmol/L (98-107); Chol/HDL Ratio 2.1 (1-3.5); Cholesterol 131 mg/dl (140-200); Estimated Glomerular Filt Rate 102 ml/min (>60); GFR (African American) 123 ML/MIN (>60); Globulin 2.8 g/dL (1.3-3.2); Glucose 103 mg/dl (74-100); HDL Cholesterol 61 mg/dl (40-60); Potassium 4.1 mmoL/L (3.5-5.1); Sodium 142 mmol/L (136-145); Total Protein,Serum 6.8 g/dl (6.3-8.2); Triglycerides 125 mg/dl (30-150); VLDL Cholesterol 25 mg/dL (0-40)
[2024-01-06 13:42] LABS: Direct LDL Cholesterol 45.47 mg/dL (100-129)
== END 2024-01-06 23:59 | disposition home or self-care (01) ==
LOC: LAB.DROPOF 16:12
PROVIDERS: PCP Nurse Practitioner Family; Visit Provider Nurse Practitioner Family
DX: I63.9 Cerebral infarction, unspecified (principal); R73.9 Hyperglycemia, unspecified; E78.5 Hyperlipidemia, unspecified; F17.210 Nicotine dependence, cigarettes, uncomplicated
CPT/HCPCS: 80053; 80061; 83036

== ENCOUNTER 2024-01-20 16:54 | Outpatient (CLI) | payer MEDICARE, MEDICAID, SELFPAY ==
[2024-01-20 17:42] LABS: Alanine Aminotransferase 13 U/L (12-78); Albumin Level 3.9 g/dl (3.5-5.0); Albumin/Globulin Ratio 1.3 (1.1-1.8); Alkaline Phosphatase 79 U/L (38-126); Anion Gap 10.1 mEq/L (5-15); Aspartate Amino Transferase 19 U/L (14-36); Bilirubin,Total 0.3 mg/dl (0.2-1.3); Blood Urea Nitrogen 21 mg/dl (7-17); Calcium 9.6 mg/dl (8.4-10.2); Carbon Dioxide 32 mmol/L (22.0-30.0); Chloride 105 mmol/L (98-107); Chol/HDL Ratio 2.6 (1-3.5); Cholesterol 155 mg/dl (140-200); Estimated Glomerular Filt Rate 73 ml/min (>60); GFR (African American) 89 ML/MIN (>60); Globulin 2.9 g/dL (1.3-3.2); Glucose 94 mg/dl (74-100); HDL Cholesterol 59 mg/dl (40-60); Potassium 4.1 mmoL/L (3.5-5.1); Sodium 143 mmol/L (136-145); Total Protein,Serum 6.8 g/dl (6.3-8.2); Triglycerides 128 mg/dl (30-150); VLDL Cholesterol 26 mg/dL (0-40)
[2024-01-20 18:00] LABS: Direct LDL Cholesterol 64.72 mg/dL (100-129)
== END 2024-01-20 23:59 | disposition home or self-care (01) ==
LOC: LAB.DROPOF 16:54
PROVIDERS: PCP Nurse Practitioner Family; Visit Provider Nurse Practitioner Family
DX: M62.838 Other muscle spasm (principal); E78.5 Hyperlipidemia, unspecified
CPT/HCPCS: 80053; 80061; 83735; 86140

== ENCOUNTER 2024-02-04 13:34 | Outpatient (CLI) | payer MEDICARE, MEDICAID, SELFPAY ==
[2024-02-04 17:16] LABS: Basophils # 0.1 K/mm3 (0-0.2); Basophils % 0.7 % (0.1-2.0); Eosinophils # 0.1 K/mm3 (0.0-0.4); Eosinophils % 1.6 % (0.1-12.0); Hematocrit 47.9 % (37.0-47.0); Lymphocytes # 2.3 K/mm3 (0.7-4.5); Lymphocytes % 36.5 % (10-50); Mean Corpuscular HGB Conc 31.4 g/dL (31.8-35.4); Mean Corpuscular Hemoglobin 33.1 pg (27.0-31.2); Mean Corpuscular Volume 105.3 fl (81-99); Mean Platelet Volume 8.5 fl (7.4-10.4); Monocytes # 0.3 K/mm3 (0.1-1.0); Monocytes % 5.1 % (1.7-9.3); Neutrophils # 3.5 K/mm3 (1.8-7.8); Platelet Count 199 K/mm3 (142-424); Red Blood Count 4.55 M/mm3 (4.20-5.40); Red Cell Distribution Width 13.2 % (11.5-17.5); White Blood Count 6.2 K/mm3 (4.8-10.8)
[2024-02-04 18:41] LABS: 25-OH Vitamin D, Total < 30 ng/mL (30-100)
[2024-02-04 18:58] LABS: Anion Gap 7.1 mEq/L (5-15); Blood Urea Nitrogen 9 mg/dl (7-17); Calcium 9.3 mg/dl (8.4-10.2); Carbon Dioxide 33 mmol/L (22.0-30.0); Chloride 103 mmol/L (98-107); Estimated Glomerular Filt Rate 102 ml/min (>60); GFR (African American) 123 ML/MIN (>60); Glucose 91 mg/dl (74-100); Potassium 4.1 mmoL/L (3.5-5.1); Sodium 139 mmol/L (136-145)
[2024-02-04 18:59] LABS: Alanine Aminotransferase 12 U/L (12-78); Albumin Level 3.7 g/dl (3.5-5.0); Albumin/Globulin Ratio 1.3 (1.1-1.8); Alkaline Phosphatase 85 U/L (38-126); Aspartate Amino Transferase 19 U/L (14-36); Bilirubin,Total 0.4 mg/dl (0.2-1.3); Globulin 2.8 g/dL (1.3-3.2); Thyroid Stimulating Hormone 0.72 uIU/mL (0.465-4.68); Total Protein,Serum 6.5 g/dl (6.3-8.2); Vitamin B12 331 pg/mL (239-931)
== END 2024-02-04 23:59 | disposition home or self-care (01) ==
LOC: LAB.DROPOF 02-09 13:35
PROVIDERS: PCP Nurse Practitioner Family; Visit Provider Nurse Practitioner Family
DX: I10 Essential (primary) hypertension (principal); R53.83 Other fatigue; E55.9 Vitamin D deficiency, unspecified
CPT/HCPCS: 36415; 80050; 80053; 82306; 82607; 84443; 85025

== ENCOUNTER 2024-02-10 10:11 | Outpatient (CLI) | payer MEDICARE, MEDICAID, SELFPAY ==
--- NOTE | 2024-02-10 10:11 | CA_ITS ---
FINAL REPORT TECHNIQUE: Real-time imaging was performed of the extracranial carotid arteries in transverse and longitudinal planes with color duplex evaluation of blood flow velocity. Spectral analysis was performed. The cervicovertebral arteries were also examined. Stenosis evaluation based on elevated velocity criteria. CLINICAL HISTORY: dizziness, smoker, TIA, dizziness FINDINGS: FINDINGS: RIGHT CAROTID: CCA PSV: 121 cm/sec ICA PSV: 71 cm/sec ECA PSV: 188 cm/sec ICA/CCA systolic flow velocity ratio: 1.1 Minimal atherosclerotic plaque is noted. Narrowing is classified in the less than 50% category. LEFT CAROTID: CCA PSV: 108 cm/sec ICA PSV: 107 cm/sec ECA PSV: 71 cm/sec ICA/CCA systolic flow velocity ratio: 1.5 Minimal atherosclerotic plaque is noted. Narrowing is classified in the less than 50% category. VERTEBRALS: Vertebral arteries are patent with antegrade flow and expected spectral waveforms. IMPRESSION: Less than 50% bilateral carotid artery stenosis. Patent vertebral arteries. Reviewed, Interpreted and Dictated by Carmelo Aguirre MD Transcribed by Sallie Dumas Authenticated and . [facility]
== END 2024-02-10 23:59 | disposition home or self-care (01) ==
LOC: RT 10:11
PROVIDERS: PCP Internal Medicine; Visit Provider Nurse Practitioner Family
DX: R42 Dizziness and giddiness (principal)
CPT/HCPCS: 93880

== ENCOUNTER 2024-02-19 11:32 | Emergency (ER) | payer MEDICARE, MEDICAID, SELFPAY ==
[2024-02-19 11:32] VITALS: BP 133/76; PULSE 75; RESP 18; TEMP 36.6; O2SAT 96; BMI 33.6
--- NOTE | 2024-02-19 12:02 | CT_ITS ---
FINAL REPORT CLINICAL HISTORY: new onset L sided tremor COMPARISON: 12/23/2023 FINDINGS: Axial images of the head were obtained without contrast. Coronal and sagittal reformatted images were also obtained.This study was performed with techniques to keep radiation doses as low as reasonably achievable (ALARA). Individualized dose reduction techniques using automated exposure control or adjustment of mA and/or kV according to the patient's size were employed. There are worsening left occipital low-attenuation areas, as well as new right occipital low-attenuation areas when compared to the prior CT, that are consistent with interval occipital infarcts. There is no significant mass effect or midline shift, and these infarcts may be subacute. There is no evidence of intracranial hemorrhage or mass. The ventricular size is within normal limits. No abnormal extra axial fluid collection is identified. No skull abnormality is seen on the bone window images. IMPRESSION: Worsening left occipital low-attenuation focus when compared to the prior CT of December 2023, as well as new right occipital low-attenuation focus, consistent with interval occipital infarcts. These are not producing significant mass effect at this time, and may be subacute. Reviewed, Interpreted and Dictated by Josep Bishop III, MD Transcribed by Corinna Boss Authenticated and [facility]
[2024-02-19 12:14] LABS: Basophils # 0.1 K/mm3 (0-0.2); Basophils % 1.1 % (0.1-2.0); Eosinophils # 0.2 K/mm3 (0.0-0.4); Eosinophils % 1.9 % (0.1-12.0); Hematocrit 46.8 % (37.0-47.0); Hemoglobin 14.6 g/dL (12.2-16.2); Lymphocytes # 2.3 K/mm3 (0.7-4.5); Lymphocytes % 30.1 % (10-50); Mean Corpuscular HGB Conc 31.2 g/dL (31.8-35.4); Mean Corpuscular Hemoglobin 32.5 pg (27.0-31.2); Mean Corpuscular Volume 104.2 fl (81-99); Mean Platelet Volume 8.2 fl (7.4-10.4); Monocytes # 0.4 K/mm3 (0.1-1.0); Monocytes % 5.4 % (1.7-9.3); Neutrophils # 4.6 K/mm3 (1.8-7.8); Neutrophils % 61.5 % (37.0-80.0); Platelet Count 229 K/mm3 (142-424); Red Blood Count 4.49 M/mm3 (4.20-5.40); Red Cell Distribution Width 13.5 % (11.5-17.5); White Blood Count 7.6 K/mm3 (4.8-10.8)
--- NOTE | 2024-02-19 12:17 | ED_ITS ---
Discharge Plan Disposition Patient Disposition: Home, Self-Care Chief Complaint: Recheck/Abnormal Lab/Rx Prescriptions Prescriptions: No Action albuterol sulfate 90 mcg/actuation HFA aerosol inhaler 1 inh inhalation Q4-6H PRN (Reason: Shortness Of Breath Or Wheezing) Qty: 8.5 2RF trazodone 50 mg tablet 50 mg PO DAILY Qty: 30 2RF amlodipine 5 mg tablet 5 mg PO DAILY 90 Days Qty: 90 1RF atorvastatin 80 mg tablet 80 mg PO QHS Qty: 90 1RF clopidogrel 75 mg tablet 75 mg PO DAILY Qty: 90 1RF cyclobenzaprine 10 mg tablet See Rx Instructions .ROUTE .COMPLEX Qty: 90 0RF Dose Instruction: Take 1 tablet by mouth three times daily as needed for muscle spasm Rx Instructions: Take 1 tablet by mouth three times daily as needed for muscle spasm fluoxetine 20 mg tablet 20 mg PO BID Qty: 60 2RF lisinopril 5 mg tablet 5 mg PO DAILY Qty: 90 1RF aspirin [Adult Low Dose Aspirin] 81 mg tablet,delayed release (DR/EC) 81 mg PO DAILY Spiriva Respimat 2.5 mcg/actuation mist inhalation omeprazole 40 mg capsule,delayed release(DR/EC) See Rx Instructions .ROUTE .COMPLEX Qty: 30 0RF Dose Instruction: TAKE 1 CAPSULE BY MOUTH ONCE DAILY FOR GERD Rx Instructions: TAKE 1 CAPSULE BY MOUTH ONCE DAILY FOR GERD (DME) Dickson Aerosol Marinette Enhancer Spacer See Rx Instructions .Route Qty: 1 0RF Rx Instructions: As directed cholecalciferol (vitamin D3) 125 mcg (5,000 unit) capsule 125 mcg PO DAILY Qty: 30 2RF Referrals Follow up/Referrals: Frandy Valdes DO [Primary Care Provider] - See instructions Activity Restrictions/Add. Instructions Additional Instructions/Restrictions: Follow-up with your family doctor regarding this visit to the emergency department and need for follow-up MRI of your head with and without contrast. Call your family doctor to establish care for this visit to the emergency department and schedule follow-up within 48 hours to ensure improvement. If you have any worsening of your condition or any other concerning signs or symptoms, return to the emergency department or your primary care doctor for further evaluation. Clinical Impressions Clinical Impression: Tremor Print Language Print Language: Prydeinig Discharge ED Provider: Johnathon Bajwa General Adult HPI General Chief complaint: Recheck/Abnormal Lab/Rx Stated complaint: shakey, weakness, dry throat Time Seen by Provider: 02/19/24 11:55 Mode of Arrival: Wheelchair Source of Information: Patient Limitations: No Limitations Description of Symptoms (Recalled from ER Triage Doc. by RN): shaking started this morning History of Present Illness HPI narrative: Please note that above description of symptoms, in this electronic medical record under categorization of recalled from ER triage doctor by RN are reflective of an initial nursing assessment, however, is not reflective of my full history and physical exam that was personally taken and clarified. Consequentially, this preceding description of symptoms, which may include the patient's categorized chief complaint in the EMR, do not reflect my personal clinical impression, and the ultimate description of history of present illness and patient stated complaints should be deferred to this section of the note. Unless stated otherwise or congruent with this section of the note, additional signs, symptoms, or incongruence should be interpreted as inaccurate with my clinical impression. Related Data Home Medications ?Medication ?Instructions ?Recorded ?Confirmed aspirin 81 mg tablet,delayed 81 mg PO DAILY 01/06/24 02/04/24 release (Adult Low Dose Aspirin) tiotropium bromide 2.5 inhalation 01/06/24 02/04/24 mcg/actuation mist for inhalation (Spiriva Respimat) Previous Rx's ?Medication ?Instructions ?Recorded albuterol sulfate 90 mcg/actuation 1 inh inhalation Q4-6H PRN 05/15/23 aerosol inhaler Shortness Of Breath Or Wheezing #8.5 grams trazodone 50 mg tablet 50 mg PO DAILY #30 tabs 01/20/24 omeprazole 40 mg capsule,delayed See Rx Instructions .Route 02/03/24 release .COMPLEX #30 caps amlodipine 5 mg tablet 5 mg PO DAILY 90 days #90 tabs 02/05/24 atorvastatin 80 mg tablet 80 mg PO QHS #90 tabs 02/05/24 clopidogrel 75 mg tablet 75 mg PO DAILY #90 tabs 02/05/24 cyclobenzaprine 10 mg tablet See Rx Instructions .Route 02/05/24 .COMPLEX #90 tabs fluoxetine 20 mg tablet 20 mg PO BID Depression #60 tabs 02/05/24 inhalational spacing device (Dickson #1 ea 02/05/24 Aerosol Marinette Enhancer spacer) lisinopril 5 mg tablet 5 mg PO DAILY #90 tabs 02/05/24 cholecalciferol (vitamin D3) 125 125 mcg PO DAILY #30 caps 02/06/24 mcg (5,000 unit) capsule Allergies Allergy/AdvReac Type Severity Reaction Status Date / Time Penicillins Allergy Severe Swelling Verified 02/04/24 15:51 of Lip/Tongue/Throat morphine [MORPHINE] Allergy Intermediate Verified 02/04/24 15:51 naproxen [From [facility]] Allergy Unknown SWELLING Verified 02/04/24 15:51 [facility] Disclaimer: The information contained in this section may have been updated after the patient was seen, as this information can be updated by other users. Medical History (Updated 02/19/24 @ 16:11 by Johnathon Bajwa MD) Asthma Macrocytosis Chronic calculous cholecystitis COPD (chronic obstructive pulmonary disease) Surgical History History of cholecystectomy History of ankle surgery H/O elbow surgery History of surgery on wrist H/O removal of cyst History of bilateral tubal ligation Family History Other No significant family history Social History Smoking Status: Current every day smoker tobacco type: cigarettes packs per day: 1 second hand exposure: Yes alcohol intake: current alcohol intake frequency: 0-2 drinks per day substance use type: denies use current occupational status: other Travel in the last 8 weeks: None household members: spouse housing: apartment current occupational exposures/hazards: No caffeine: Yes ROS Obtained: Yes All systems reviewed & no additional complaints except as documented Physical Exam General General appearance: alert Head Head exam: atraumatic and normocephalic Eye Eye exam: Present normal appearance, PERRL and EOMI Neck Neck exam: Present normal inspection, full ROM and trachea midline Respiratory Respiratory exam: Absent respiratory distress, wheezes, stridor, accessory muscle use or prolonged expiratory phase Cardiovascular Cardiovascular exam: Present other (Pulses equal symmetric in upper and lower extremities) Abdominal Exam Abdominal exam: Present soft; Absent distention, tenderness or pulsatile mass Extremities Exam Extremities exam: Absent edema Neurological Exam Neurological exam: Present alert, oriented X3, CN II-XII intact and other (Resting tremor upper extremities, made worse with intentional movements. Resting head tremor.); Absent normal gait (Staggering gait, patient and state this is how she walks at home. No change from baseline) or motor sensory deficit Skin Skin exam: Present warm and dry; Absent diaphoresis or erythema Medical Decision Making Medical Records Medical records reviewed: Yes I reviewed the patient's medical records. Ronnie Inquiry Pt receiving controlled substance: No Ronnie was queried for this patient: No Vital Signs: 02/19/24 11:32 02/19/24 13:38 02/19/24 14:56 Temperature 98 F Temperature Source Oral Pulse Rate 62 60 Pulse Rate [Right] 75 Respiratory Rate 18 Blood Pressure 134/78 152/73 H Blood Pressure [Right Arm] 133/76 Blood Pressure Mean [Right Arm] 95 02 Sat by Pulse Oximetry 96 96 98 Oxygen Delivery Method Room Air Room Air 02/19/24 15:00 Temperature Temperature Source Pulse Rate 61 Pulse Rate [Right] Respiratory Rate Blood Pressure 161/72 H Blood Pressure [Right Arm] Blood Pressure Mean [Right Arm] 02 Sat by Pulse Oximetry 95 Oxygen Delivery Method Room Air Lab Data Lab Results 02/19/24 12:05: WBC 7.6, RBC 4.49, Hgb 14.6, Hct 46.8, MCV 104.2 H, MCH 32.5 H, MCHC 31.2 L, RDW 13.5, Plt Count 229, MPV 8.2, Neut % (Auto) 61.5, Lymph % (Auto) 30.1, [place] % (Auto) 5.4, Eos % (Auto) 1.9, Baso % (Auto) 1.1, Neut # (Auto) 4.6, Lymph # (Auto) 2.3, [place] # (Auto) 0.4, Eos # (Auto) 0.2, Baso # (Auto) 0.1, Sodium 136, Potassium 4.4, Chloride 102, Carbon Dioxide 33 H, Anion Gap 5.4, BUN 15, Creatinine 0.70, Estimated Creat Clear 116, Estimated GFR 85, Est GFR ( Amer) 103, Glucose 94, Calcium 8.9, Magnesium 1.9, Total Bilirubin 0.6, AST 27, ALT 16, Alkaline Phosphatase 92, Total Protein 7.2, Albumin 4.1, Globulin 3.1, Albumin/Globulin Ratio 1.3, TSH 1.13, Thyroxine (T4) 10.2 02/19/24 12:05 02/19/24 12:05 Orders (Tests/Meds): ED MEDICATIONS Generic Name Dose Route Start Last Admin Trade Name Freq PRN Reason Stop Dose Admin Sodium Chloride 10 ml 02/19/24 14:03 02/19/24 14:05 Sodium Chloride 0.9% 10ml Syr (Rad Only) IV 03/20/24 14:02 10 ml NEEDED PRN Administration Maintain IV Site Discontinued Medications Generic Name Dose Route Start Last Admin Trade Name Freq PRN Reason Stop Dose Admin Iopamidol 80 ml 02/19/24 14:03 02/19/24 14:04 Iopamidol-370 (76%);100ml Bottle IV 02/19/24 14:04 80 ml ONCE ONE Administration Sodium Chloride 50 ml 02/19/24 14:03 02/19/24 14:04 0.9 % Sodium Chloride 50 Ml Vial IV 02/19/24 14:04 50 ml ONCE ONE Administration ORDERS Category Date Time Status CT angio head Stat Cat Scan 02/19/24 13:[address] angio neck Stat Cat Scan 02/19/24 13:[address] head/brain wo con Stat Cat Scan 02/19/24 12:02 Completed CBC w/Auto Diff [Complete Blood Count Auto Diff] Stat Lab 02/19/24 12:05 Completed CMP [Comprehensive Metabolic Panel] Stat Lab 02/19/24 12:05 Completed Magnesium Stat Lab 02/19/24 12:05 Completed T4 (Thyroxine) Stat Lab 02/19/24 12:05 Completed TSH [Thyroid Stimulating Hormone] Stat Lab 02/19/24 12:05 Completed Medical Decision Narrative: 58-year-old female presenting with tremor. Patient states the tremors been going on for the last for 5 days, getting worse. Has not seen her family doctor for this tremor. States that it is bothering her her, making her feel like I am cold, although she states that she knows she is not cold. Denies fevers, chills, weakness, vision changes, chest pain, shortness of breath, any other concerns at this time. Intermittently having headaches, but she has intermittent headaches at baseline anyway. Patient denies changes in gait. She does have a strong family history of Parkinson's, among other neurodegenerative disease. History was obtained via conversation with patient and . On arrival, patient hemodynamically stable, alert, oriented x4, appropriate, GCS 15, moving all extremities spontaneously, pupils equal and reactive to light. Full physical exam performed and significant for resting tremor bilateral upper extremities, left greater than right. Made worse with intentional movements. She also has a resting tremor of her head. No obvious pill-rolling tremor. Gait is shuffling, but patient's family states that this is normal for her at home. Cardiopulmonary exam within normal evidence. Otherwise neurologically intact. Differential includes intention tremor, essential tremor, Parkinsonian, among others. Patient placed on continuous cardiac monitoring and continuous pulse ox with initial blood pressure 133/76, heart rate 75, saturation 96% on room air. Independent rotation of workup with nonactionable CBC, chemistry, or hematologic workup overall. CT head was ordered. Patient was found to have subacute infarcts in her occipital lobe. CTA head and neck was ordered without acute intracranial abnormality or significant stenosis. Concern for possible small P- comm aneurysm, this was voiced to patient. Admission to the hospital and further workup with MRI was offered to patient, patient opting for home-going I feel this is appropriate. States that she has close access to her family provider who is able to order MRI. Because patient at baseline without signs or symptoms of clinical decompensation, deemed appropriate for discharge. Results were relayed to patient who voiced understanding and were agreeable to outpatient management and follow up. I discussed my clinical impression with patient and answered all questions. At this time, the evidence for any other entities in the differential is insufficient to warrant any further testing or ED observation. This was explained as well. Advisory was given that persistent or worsening symptoms require further evaluation. I confirmed the understanding of this discussion. Telemarketing Representative disclaimer Much of this encounter note is an electronic community engagement manager spoken language to printed text. Electronic community engagement manager of the spoken language may permit errors. Although I have reviewed the note, some errors may still exist. Critical Care Critical Care Time Critical Care Time: No
[2024-02-19 12:24] LABS: Albumin Level 4.1 g/dl (3.5-5.0); Chloride 102 mmol/L (98-107); Potassium 4.4 mmoL/L (3.5-5.1); Sodium 136 mmol/L (136-145)
[2024-02-19 12:26] LABS: Alanine Aminotransferase 16 U/L (12-78); Aspartate Amino Transferase 27 U/L (14-36); Blood Urea Nitrogen 15 mg/dl (7-17); Creatinine Clearance Estimated 116 mL/min (50-200); Estimated Glomerular Filt Rate 85 ml/min (>60); GFR (African American) 103 ML/MIN (>60)
[2024-02-19 12:27] LABS: Albumin/Globulin Ratio 1.3 (1.1-1.8); Alkaline Phosphatase 92 U/L (38-126); Anion Gap 5.4 mEq/L (5-15); Bilirubin,Total 0.6 mg/dl (0.2-1.3); Calcium 8.9 mg/dl (8.4-10.2); Carbon Dioxide 33 mmol/L (22.0-30.0); Globulin 3.1 g/dL (1.3-3.2); Glucose 94 mg/dl (74-100); Magnesium 1.9 mg/dl (1.6-2.3); Total Protein,Serum 7.2 g/dl (6.3-8.2)
[2024-02-19 12:44] LABS: T4 (Thyroxine) 10.2 ug/dl (5.53-11.0)
[2024-02-19 12:58] LABS: Thyroid Stimulating Hormone 1.13 uIU/mL (0.465-4.68)
[2024-02-19 13:38] VITALS: BP 134/78; PULSE 62; O2SAT 96
--- NOTE | 2024-02-19 13:49 | CT_ITS ---
FINAL REPORT TECHNIQUE: Thin section axial CT with IV contrast supplemented with multiplanar reconstruction under CT angiogram protocol. 3-D reconstructions were performed. This study was performed with techniques to keep radiation doses as low as reasonably achievable (ALARA). Individualized dose reduction techniques using automated exposure control or adjustment of mA and/or kV according to the patient''s size were employed. CLINICAL HISTORY: subacute infarcts COMPARISON: 12/23/2023 FINDINGS: There is calcified plaque of the distal ICAs bilaterally without evidence of stenosis. Again identified is presumed prominent infundibulum in the region of the right posterior communicating artery. This is visually stable since the previous. There is no significant stenosis or major branch occlusion. IMPRESSION: Calcified plaque of the distal ICAs without evidence of stenosis. Prominent infundibulum in the region of the right posterior communicating artery, stable. If indicated, findings could be further evaluated with MRA or catheter angiogram. Reviewed, Interpreted and Dictated by Josep Bishop III, MD Transcribed by Raquel Elizalde Authenticated and . [facility]
--- NOTE | 2024-02-19 13:49 | CT_ITS ---
FINAL REPORT TECHNIQUE: Thin section axial CT with IV contrast supplemented with multiplanar reconstruction under CT angiogram protocol. This study was performed with techniques to keep radiation doses as low as reasonably achievable (ALARA). Individualized dose reduction techniques using automated exposure control or adjustment of mA and/or kV according to the patient''s size were employed. NASCET criteria was utilized during interpretation. CLINICAL HISTORY: subacute infarcts COMPARISON: 12/23/2023 FINDINGS: Aortic arch: Arch shows no significant narrowing. Great vessel origins are widely patent. Right carotid: There is calcified plaque at the level of the right carotid bulb without evidence of stenosis. Left carotid: No significant stenosis is seen of the cervical common or internal carotid artery. Vertebral: The vertebral arteries are codominant. No significant stenosis is present. IMPRESSION: Calcified plaque at the right carotid bulb without evidence of stenosis. Reviewed, Interpreted and Dictated by Josep Bishop III, MD Transcribed by Raquel Elizalde Authenticated and [facility]
[2024-02-19] MEDS: IOPAMIDOL-370 (76%);100ML BOTTLE 80 ML IV (14:04)
[2024-02-19] MEDS: 0.9 % SODIUM CHLORIDE 50 ML VIAL IV (14:04)
[2024-02-19] MEDS: SODIUM CHLORIDE 0.9% 10ML SYR (RAD ONLY) 10 ML IV (14:05)
[2024-02-19 14:56] VITALS: BP 152/73; PULSE 60; O2SAT 98
[2024-02-19 15:00] VITALS: BP 161/72; PULSE 61; O2SAT 95
--- NOTE | 2024-02-19 15:27 | PC.NURSE ---
spoke with radiology regarding CT results
[2024-02-19 16:17] VITALS: BP 195/80; PULSE 65; RESP 20; TEMP 36.6; O2SAT 95
== END 2024-02-19 16:19 | disposition home or self-care (01) ==
PROVIDERS: Emergency Provider Emergency Medicine; PCP Internal Medicine
DX: R25.1 Tremor, unspecified (principal); R53.1 Weakness; J44.9 Chronic obstructive pulmonary disease, unspecified; F17.210 Nicotine dependence, cigarettes, uncomplicated
CPT/HCPCS: 70450; 70496; 70498; 80050; 80053; 83735; 84436; 84443; 85025; 99285; Q9967

== ENCOUNTER 2024-03-18 13:37 | Outpatient (CLI) | payer MEDICARE, MEDICAID, SELFPAY ==
--- NOTE | 2024-03-18 13:47 | MR_ITS ---
FINAL REPORT CLINICAL HISTORY: dizziness, blurred vision, hx of CVA. FALLING FREQUENTLY. COMPARISON: 02/19/2024 FINDINGS: Multi planar MR imaging was obtained through the brain without contrast. The midline structures appear intact. There are bilateral medial occipital lobe cortical signal abnormalities. There is developing encephalomalacia on the left. No decreased signal is seen on the ADC map images. Findings are favored to represent evolving encephalomalacia associated with late subacute ischemic infarcts. There is mild abnormal signal in the deep white matter bilaterally which is nonspecific, probably due to chronic ischemia. The visualized paranasal sinuses demonstrate normal signal voids. The seventh and eighth nerve root complexes are intact. IMPRESSION: Evolving ischemic infarcts in the occipital lobes bilaterally. Reviewed, Interpreted and Dictated by Carmelo Aguirre MD Transcribed by Raquel Elizalde Authenticated and [facility]
== END 2024-03-18 23:59 | disposition home or self-care (01) ==
LOC: RAD 13:39
PROVIDERS: PCP Nurse Practitioner Family; Visit Provider Nurse Practitioner Family
DX: R42 Dizziness and giddiness (principal); R26.81 Unsteadiness on feet; R51.9 Headache, unspecified
CPT/HCPCS: 70551

== ENCOUNTER 2024-03-19 14:44 | Emergency (ER) | payer MEDICARE, MEDICAID, SELFPAY ==
[2024-03-19 14:47] VITALS: BP 133/68; PULSE 91; RESP 18; TEMP 36.5; O2SAT 94; BMI 31.8
[2024-03-19 15:01] VITALS: BP 122/54; PULSE 90; O2SAT 96
--- NOTE | 2024-03-19 15:12 | XR_ITS ---
FINAL REPORT CLINICAL HISTORY: fall, injury FINDINGS: Left tibia fibula Two views were obtained. There is no acute fracture or dislocation. The joint spaces appear normal. There are small calcifications anterior to the mid tibia, likely vascular. IMPRESSION: No acute process. Reviewed, Interpreted and Dictated by Carmelo Aguirre MD Transcribed by Raquel Elizalde Authenticated and . [facility]
--- NOTE | 2024-03-19 15:12 | XR_ITS ---
FINAL REPORT CLINICAL HISTORY: fall, injury FINDINGS: Left foot Three views were obtained. There is a lucency at the base of the 5th proximal phalanx, probably due to subtle nondisplaced fracture. IMPRESSION: Probable subtle nondisplaced fracture of the 5th proximal phalanx but please correlate with site of point tenderness. Reviewed, Interpreted and Dictated by Carmelo Aguirre MD Transcribed by Raquel Elizalde Authenticated and [facility]
--- NOTE | 2024-03-19 15:12 | XR_ITS ---
FINAL REPORT CLINICAL HISTORY: fall, injury FINDINGS: Left ankle Three views were obtained. There is no acute fracture or dislocation. There are mild hypertrophic changes at the distal articulation between the tibia and fibula, probably due to prior trauma. No soft tissue abnormality is identified. IMPRESSION: No acute process. Reviewed, Interpreted and Dictated by Carmelo Aguirre MD Transcribed by Raquel Elizalde Authenticated and [facility]
--- NOTE | 2024-03-19 15:20 | ED_ITS ---
Discharge Plan Disposition Patient Disposition: Home, Self-Care Prescriptions Prescriptions: No Action albuterol sulfate 90 mcg/actuation HFA aerosol inhaler 1 inh inhalation Q4-6H PRN (Reason: Shortness Of Breath Or Wheezing) Qty: 8.5 2RF trazodone 50 mg tablet 50 mg PO DAILY Qty: 30 2RF amlodipine 5 mg tablet 5 mg PO DAILY 90 Days Qty: 90 1RF atorvastatin 80 mg tablet 80 mg PO QHS Qty: 90 1RF clopidogrel 75 mg tablet 75 mg PO DAILY Qty: 90 1RF cyclobenzaprine 10 mg tablet See Rx Instructions .ROUTE .COMPLEX Qty: 90 0RF Dose Instruction: Take 1 tablet by mouth three times daily as needed for muscle spasm Rx Instructions: Take 1 tablet by mouth three times daily as needed for muscle spasm fluoxetine 20 mg tablet 20 mg PO BID Qty: 60 2RF lisinopril 5 mg tablet 5 mg PO DAILY Qty: 90 1RF aspirin [Adult Low Dose Aspirin] 81 mg tablet,delayed release (DR/EC) 81 mg PO DAILY Spiriva Respimat 2.5 mcg/actuation mist inhalation omeprazole 40 mg capsule,delayed release(DR/EC) See Rx Instructions .ROUTE .COMPLEX Qty: 30 0RF Dose Instruction: TAKE 1 CAPSULE BY MOUTH ONCE DAILY FOR GERD Rx Instructions: TAKE 1 CAPSULE BY MOUTH ONCE DAILY FOR GERD (DME) Dickson Aerosol [place] Enhancer Spacer See Rx Instructions .Route Qty: 1 0RF Rx Instructions: As directed cholecalciferol (vitamin D3) 125 mcg (5,000 unit) capsule 125 mcg PO DAILY Qty: 30 2RF Referrals Follow up/Referrals: Kailash Lopez DO [Staff Physician] - See instructions Monica Raymundo APRN [Primary Care Provider] - See instructions Activity Restrictions/Add. Instructions Additional Instructions/Restrictions: There is a subtle irregularity at the base of your fifth toe proximal phalynx which may represent a small fracture. Please bear weight as tolerated with your walking boot and follow-up with Dr. Lopez to ensure resolution. Clinical Impressions Clinical Impression: Injury of left leg, Closed fracture of proximal phalanx of toe Print Language Print Language: Hungarian Discharge ED Provider: Richard Araujo General Adult HPI General Chief complaint: Fall Stated complaint: dizzy, tripped, inj left leg Time Seen by Provider: 03/19/24 15:07 Mode of Arrival: Wheelchair Source of Information: Patient Limitations: No Limitations Description of Symptoms (Recalled from ER Triage Doc. by RN): Patient presents to ED from a fall that happened this morning at home. Patient reports she was walking outside and started to get dizzy and tripped over a center block. Pt reports pain to the left ankle and terrazas area. Patient denies LOC or hitting her head. Patient reports this happens frequently and she had an MRI yesterday to evaluate further that was ordered from her PCP. History of Present Illness HPI narrative: Is a 58-year-old female presents today after mechanical fall with an injury to her left lower extremity. She states that she did not have any syncopal episodes or lightheadedness on my history. She denies hitting her head any head neck chest abdomen pelvis or pain outside of the left lower extremity. She states she has had pain swelling and ecchymosis over the anterior aspect of her left terrazas and her left dorsal aspect of her foot. No anticoagulation or antiplatelets from historical standpoint. Related Data Home Medications ?Medication ?Instructions ?Recorded ?Confirmed aspirin 81 mg tablet,delayed 81 mg PO DAILY 01/06/24 02/04/24 release (Adult Low Dose Aspirin) tiotropium bromide 2.5 inhalation 01/06/24 02/04/24 mcg/actuation mist for inhalation (Spiriva Respimat) Previous Rx's ?Medication ?Instructions ?Recorded albuterol sulfate 90 mcg/actuation 1 inh inhalation Q4-6H PRN 05/15/23 aerosol inhaler Shortness Of Breath Or Wheezing #8.5 grams trazodone 50 mg tablet 50 mg PO DAILY #30 tabs 01/20/24 omeprazole 40 mg capsule,delayed See Rx Instructions .Route 02/03/24 release .COMPLEX #30 caps amlodipine 5 mg tablet 5 mg PO DAILY 90 days #90 tabs 02/05/24 atorvastatin 80 mg tablet 80 mg PO QHS #90 tabs 02/05/24 clopidogrel 75 mg tablet 75 mg PO DAILY #90 tabs 02/05/24 cyclobenzaprine 10 mg tablet See Rx Instructions .Route 02/05/24 .COMPLEX #90 tabs fluoxetine 20 mg tablet 20 mg PO BID Depression #60 tabs 02/05/24 inhalational spacing device (Dickson #1 ea 02/05/24 Aerosol [place] Enhancer spacer) lisinopril 5 mg tablet 5 mg PO DAILY #90 tabs 02/05/24 cholecalciferol (vitamin D3) 125 125 mcg PO DAILY #30 caps 02/06/24 mcg (5,000 unit) capsule Allergies Allergy/AdvReac Type Severity Reaction Status Date / Time Penicillins Allergy Severe Swelling Verified 02/04/24 15:51 of Lip/Tongue/Throat morphine [MORPHINE] Allergy Intermediate Verified 02/04/24 15:51 naproxen [From ALEVE] Allergy Unknown SWELLING Verified 02/04/24 15:51 [facility] Disclaimer: The information contained in this section may have been updated after the patient was seen, as this information can be updated by other users. Medical History (Updated 03/19/24 @ 16:54 by Richard Araujo MD) Asthma Macrocytosis Chronic calculous cholecystitis COPD (chronic obstructive pulmonary disease) Surgical History History of cholecystectomy History of ankle surgery H/O elbow surgery History of surgery on wrist H/O removal of cyst History of bilateral tubal ligation Family History Other No significant family history Social History Smoking Status: Current every day smoker tobacco type: cigarettes packs per day: 1 second hand exposure: Yes alcohol intake: current alcohol intake frequency: 0-2 drinks per day substance use type: denies use current occupational status: other Travel in the last 8 weeks: None household members: spouse housing: apartment current occupational exposures/hazards: No caffeine: Yes Other Medical History Have you received the Flu Vaccine for this season: No Have you received the Pneumonia Vaccine: No ROS Obtained: Yes All systems reviewed & no additional complaints except as documented Physical Exam General General appearance: alert Respiratory Respiratory exam: Present normal lung sounds bilaterally Cardiovascular Cardiovascular exam: Present regular rate Extremities Exam Extremities exam: Present other (Patient has pain and ecchymosis and swelling of the left anterior tibial region and the dorsal aspect the left foot neurovascular intact distally) Neurological Exam Neurological exam: Present alert and oriented X3 Medical Decision Making Medical Records Screening: Per USPSTF and CDC recommendations, given the prevalence of disease in our region, it is our hospital?s policy to screen for HIV and viral Hepatitis for all patients aged 18 and over and those with ongoing risk factors. Ronnie Inquiry Pt receiving controlled substance: No Vital Signs: 03/19/24 14:47 03/19/24 15:01 03/19/24 15:31 Temperature 97.7 F Temperature Source Oral Pulse Rate 90 81 Pulse Rate [Right Brachial] 91 H Respiratory Rate 18 Blood Pressure 122/54 L 128/54 L Blood Pressure [Right Arm] 133/68 Blood Pressure Mean 76 84 Blood Pressure Mean [Right Arm] 89 Blood Pressure Source [Right Arm] Automatic Cuff Blood Pressure Position [Right Arm] Supine 02 Sat by Pulse Oximetry 94 L 96 95 Oxygen Delivery Method Room Air Room Air Room Air Lab Data Lab Results 03/19/24 14:55: HIV 1&2 Antibody Rapid Nonreactive Orders (Tests/Meds): ORDERS Category Date Time Status Ankle XR - Left minimum 3 Views [XR ankle LT min 3V] Exams 03/19/24 15:12 Completed Stat Foot XR left minimum 3 views [XR foot LT min 3V] Stat Exams 03/19/24 15:12 Completed Tibia/fibula XR left 2 views [XR tibia fibula LT 2V] Exams 03/19/24 15:12 Completed Stat HIV (1&2) Antibody Rapid Stat Lab 03/19/24 14:55 Completed Hep C Ab with Reflex to RNA Stat Lab 03/19/24 14:55 Received Medical Decision Narrative: 58-year-old female with above history and physical. She is [place] head negative Nexus negative she has no head neck chest abdomen pelvis or other long bone pain outside of the left lower extremity. From historical standpoint this seems to have been a mechanical fall and she denies any symptoms concerning to me for syncopal episode etc. Will get plain films of her tib-fib ankle and foot and reassess. Differential includes fracture dislocation sprain contusion etc. X-rays of the patient's foot ankle and tib-fib are performed I personally interpreted which do not demonstrate any large or significant fractures however there is a small irregularity at the base of the fifth proximal phalanx and she is tender in this region therefore we will treat this as a fracture. She has been given a hard soled walking boot she may bear weight as tolerated and follow-up with orthopedic surgery to ensure resolution. Supportive care discussed return precautions emphasized patient was discharged in stable con dition Critical Care Critical Care Time Critical Care Time: No
[2024-03-19 15:31] VITALS: BP 128/54; PULSE 81; O2SAT 95
[2024-03-19 15:57] LABS: HIV (1&2) Antibody Rapid NONREACTIVE (NONREACTIVE)
[2024-03-19 16:55] VITALS: BP 122/71; PULSE 84; RESP 18; TEMP 37; O2SAT 98
[2024-03-21 08:24] LABS: HCV Ab Non Reactive (Non Reactive)
== END 2024-03-19 17:08 | disposition home or self-care (01) ==
PROVIDERS: Emergency Provider Student in an Organized Health Care Education/Training Program; PCP Nurse Practitioner Family
DX: S92.515A Nondisplaced fracture of proximal phalanx of left lesser toe(s), initial encounter for closed fracture (principal); W19.XXXA Unspecified fall, initial encounter
CPT/HCPCS: 73590; 73610; 73630; 86803; 87389; 99283

== ENCOUNTER 2024-03-28 18:02 | Emergency (ER) | payer MEDICARE, MEDICAID, SELFPAY ==
[2024-03-28 18:14] VITALS: BP 147/79; PULSE 89; O2SAT 93
[2024-03-28 18:21] VITALS: BP 147/79; PULSE 86; RESP 16; TEMP 36.8; O2SAT 95; BMI 25.0
[2024-03-28 18:28] LABS: Microscopic, Urine URINE MICROSCOPIC (MICROSCOPIC)
[2024-03-28 18:30] LABS: Appearance,Urine CLEAR (Clear); Blood, Urine Negative (Negative); Color,Urine YELLOW (Yellow); Glucose,Urine (UA) Negative (Negative); Ketones,Urine 1+ (Negative); Leukocyte Esterase,Urine Negative (Negative); Nitrate,Urine Negative (Negative); Protein,Urine TRACE (Negative); Specific Gravity, Urine 1.025 (1.005-1.030)
[2024-03-28 18:31] VITALS: BP 107/61; PULSE 77; O2SAT 96
[2024-03-28 18:33] LABS: Basophils # 0.1 K/mm3 (0-0.2); Basophils % 1.5 % (0.1-2.0); Eosinophils # 0.1 K/mm3 (0.0-0.4); Eosinophils % 1.5 % (0.1-12.0); Hematocrit 44.3 % (37.0-47.0); Hemoglobin 14.6 g/dL (12.2-16.2); Lymphocytes # 2.8 K/mm3 (0.7-4.5); Mean Corpuscular HGB Conc 33.1 g/dL (31.8-35.4); Mean Corpuscular Volume 99.9 fl (81-99); Mean Platelet Volume 7.8 fl (7.4-10.4); Monocytes # 0.4 K/mm3 (0.1-1.0); Monocytes % 5.3 % (1.7-9.3); Neutrophils # 4.8 K/mm3 (1.8-7.8); Neutrophils % 57.6 % (37.0-80.0); Platelet Count 244 K/mm3 (142-424); Red Blood Count 4.43 M/mm3 (4.20-5.40); Red Cell Distribution Width 13.8 % (11.5-17.5); White Blood Count 8.3 K/mm3 (4.8-10.8)
[2024-03-28 18:35] LABS: Albumin Level 4.2 g/dl (3.5-5.0); Chloride 102 mmol/L (98-107); Potassium 3.8 mmoL/L (3.5-5.1); Sodium 138 mmol/L (136-145)
[2024-03-28 18:37] LABS: Blood Urea Nitrogen 15 mg/dl (7-17); Creatinine Clearance Estimated 92 mL/min (50-200); Estimated Glomerular Filt Rate 85 ml/min (>60); GFR (African American) 103 ML/MIN (>60)
--- NOTE | 2024-03-28 18:37 | HMH.EDGENADL ---
Discharge Plan Disposition Patient Disposition: Home, Self-Care Chief Complaint: Weakness Prescriptions Prescriptions: No Action albuterol sulfate 90 mcg/actuation HFA aerosol inhaler 1 inh inhalation Q4-6H PRN (Reason: Shortness Of Breath Or Wheezing) Qty: 8.5 2RF trazodone 50 mg tablet 50 mg PO DAILY Qty: 30 2RF amlodipine 5 mg tablet 5 mg PO DAILY 90 Days Qty: 90 1RF atorvastatin 80 mg tablet 80 mg PO QHS Qty: 90 1RF clopidogrel 75 mg tablet 75 mg PO DAILY Qty: 90 1RF cyclobenzaprine 10 mg tablet See Rx Instructions .ROUTE .COMPLEX Qty: 90 0RF Dose Instruction: Take 1 tablet by mouth three times daily as needed for muscle spasm Rx Instructions: Take 1 tablet by mouth three times daily as needed for muscle spasm fluoxetine 20 mg tablet 20 mg PO BID Qty: 60 2RF lisinopril 5 mg tablet 5 mg PO DAILY Qty: 90 1RF aspirin [Adult Low Dose Aspirin] 81 mg tablet,delayed release (DR/EC) 81 mg PO DAILY Spiriva Respimat 2.5 mcg/actuation mist inhalation omeprazole 40 mg capsule,delayed release(DR/EC) See Rx Instructions .ROUTE .COMPLEX Qty: 30 0RF Dose Instruction: TAKE 1 CAPSULE BY MOUTH ONCE DAILY FOR GERD Rx Instructions: TAKE 1 CAPSULE BY MOUTH ONCE DAILY FOR GERD (DME) Dickson Aerosol [place] Enhancer Spacer See Rx Instructions .Route Qty: 1 0RF Rx Instructions: As directed cholecalciferol (vitamin D3) 125 mcg (5,000 unit) capsule 125 mcg PO DAILY Qty: 30 2RF Referrals Follow up/Referrals: Monica Raymundo APRN [Primary Care Provider] - See instructions Activity Restrictions/Add. Instructions Additional Instructions/Restrictions: Call your family doctor to set up an appointment to evaluate your cognitive function. Continue following with neurology for MRI findings of previous strokes. If you have any worsening of your condition or any other concerning signs or symptoms, return to the emergency department or your primary care doctor for further evaluation. Clinical Impressions Clinical Impression: Mild cognitive impairment, Tremor Print Language Print Language: Yi Discharge ED Provider: Johnathon Bajwa General Adult [facility] General Chief complaint: Weakness Stated complaint: shaking,confusion,left foot pain Time Seen by Provider: 03/28/24 18:06 Mode of Arrival: Ambulatory Source of Information: Patient Limitations: No Limitations Description of Symptoms (Recalled from ER Triage Doc. by RN): pt presents to ED with c/o weakness, forgetfulness, falls. pt reports symptoms ongoing for the past few days. pt does have walking boot on left foot, pt reports pain in left foot as well. History of Present Illness HPI narrative: Please note that above description of symptoms, in this electronic medical record under categorization of recalled from ER triage doctor by RN are reflective of an initial nursing assessment, however, is not reflective of my full history and physical exam that was personally taken and clarified. Consequentially, this preceding description of symptoms, which may include the patient's categorized chief complaint in the EMR, do not reflect my personal clinical impression, and the ultimate description of history of present illness and patient stated complaints should be deferred to this section of the note. Unless stated otherwise or congruent with this section of the note, additional signs, symptoms, or incongruence should be interpreted as inaccurate with my clinical impression. Related Data Home Medications ?Medication ?Instructions ?Recorded ?Confirmed aspirin 81 mg tablet,delayed 81 mg PO DAILY 01/06/24 02/04/24 release (Adult Low Dose Aspirin) tiotropium bromide 2.5 inhalation 01/06/24 02/04/24 mcg/actuation mist for inhalation (Spiriva Respimat) Previous Rx's ?Medication ?Instructions ?Recorded albuterol sulfate 90 mcg/actuation 1 inh inhalation Q4-6H PRN 05/15/23 aerosol inhaler Shortness Of Breath Or Wheezing #8.5 grams trazodone 50 mg tablet 50 mg PO DAILY #30 tabs 01/20/24 omeprazole 40 mg capsule,delayed See Rx Instructions .Route 02/03/24 release .COMPLEX #30 caps amlodipine 5 mg tablet 5 mg PO DAILY 90 days #90 tabs 02/05/24 atorvastatin 80 mg tablet 80 mg PO QHS #90 tabs 02/05/24 clopidogrel 75 mg tablet 75 mg PO DAILY #90 tabs 02/05/24 cyclobenzaprine 10 mg tablet See Rx Instructions .Route 02/05/24 .COMPLEX #90 tabs fluoxetine 20 mg tablet 20 mg PO BID Depression #60 tabs 02/05/24 inhalational spacing device (Dickson #1 ea 02/05/24 Aerosol [place] Enhancer spacer) lisinopril 5 mg tablet 5 mg PO DAILY #90 tabs 02/05/24 cholecalciferol (vitamin D3) 125 125 mcg PO DAILY #30 caps 02/06/24 mcg (5,000 unit) capsule Allergies Allergy/AdvReac Type Severity Reaction Status Date / Time Penicillins Allergy Severe Swelling Verified 02/04/24 15:51 of Lip/Tongue/Throat morphine [MORPHINE] Allergy Intermediate Verified 02/04/24 15:51 naproxen [From ALEVE] Allergy Unknown SWELLING Verified 02/04/24 15:51 [facility] Disclaimer: The information contained in this section may have been updated after the patient was seen, as this information can be updated by other users. Medical History (Updated 03/28/24 @ 20:14 by Johnathon Bajwa MD) Asthma Macrocytosis Chronic calculous cholecystitis COPD (chronic obstructive pulmonary disease) Surgical History History of cholecystectomy History of ankle surgery H/O elbow surgery History of surgery on wrist H/O removal of cyst History of bilateral tubal ligation Family History Other No significant family history Social History Smoking Status: Current every day smoker tobacco type: cigarettes packs per day: 1 second hand exposure: Yes alcohol intake: current alcohol intake frequency: 0-2 drinks per day substance use type: denies use current occupational status: other Travel in the last 8 weeks: None household members: spouse housing: apartment current occupational exposures/hazards: No caffeine: Yes Other Medical History Have you received the Flu Vaccine for this season: No Have you received the Pneumonia Vaccine: No ROS Obtained: Yes All systems reviewed & no additional complaints except as documented Physical Exam General General appearance: alert and other (Intermittently tearful, but clinically well-appearing) Head Head exam: atraumatic and normocephalic Eye Eye exam: Present normal appearance, PERRL and EOMI Neck Neck exam: Present normal inspection, full ROM and trachea midline Respiratory Respiratory exam: Present normal lung sounds bilaterally; Absent respiratory distress, wheezes, stridor, accessory muscle use or prolonged expiratory phase Cardiovascular Cardiovascular exam: Present regular rate, normal rhythm and other (Pulses equal symmetric in upper and lower extremities) Abdominal Exam Abdominal exam: Present soft; Absent distention, tenderness or pulsatile mass Extremities Exam Extremities exam: Absent edema Neurological Exam Neurological exam: Present alert, oriented X3, CN II-XII intact, normal gait and other (Intention tremor); Absent motor sensory deficit Skin Skin exam: Present warm and dry; Absent diaphoresis or erythema Medical Decision Making Medical Records Medical records reviewed: Yes I reviewed the patient's medical records. Screening: Per USPSTF and CDC recommendations, given the prevalence of disease in our region, it is our hospital?s policy to screen for HIV and viral Hepatitis for all patients aged 18 and over and those with ongoing risk factors. Ronnie Inquiry Pt receiving controlled substance: No Ronnie was queried for this patient: No Vital Signs: 03/28/24 18:14 03/28/24 18:21 03/28/24 18:31 Temperature 98.3 F Temperature Source Oral Pulse Rate 89 77 Pulse Rate [Left Radial] 86 Respiratory Rate 16 Blood Pressure 147/79 H 107/61 L Blood Pressure [Right Arm] 147/79 H Blood Pressure Mean [Right Arm] 101 02 Sat by Pulse Oximetry 93 L 95 96 Oxygen Delivery Method Room Air Room Air Room Air Lab Data Lab Results 03/28/24 18:18: WBC 8.3, RBC 4.43, Hgb 14.6, Hct 44.3, MCV 99.9 H, MCH 33.0 H, MCHC 33.1, RDW 13.8, Plt Count 244, MPV 7.8, Neut % (Auto) 57.6, Lymph % (Auto) 34.0, Evangeline % (Auto) 5.3, Eos % (Auto) 1.5, Baso % (Auto) 1.5, Neut # (Auto) 4.8, Lymph # (Auto) 2.8, Evangeline # (Auto) 0.4, Eos # (Auto) 0.1, Baso # (Auto) 0.1, Sodium 138, Potassium 3.8, Chloride 102, Carbon Dioxide 31 H, Anion Gap 8.8, BUN 15, Creatinine 0.70, Estimated Creat Clear 92, Estimated GFR 85, Est GFR ( Amer) 103, Glucose 114 H, Calcium 9.2, Magnesium 1.7, Total Bilirubin 0.5, AST 24, ALT 24, Alkaline Phosphatase 95, Total Protein 7.4, Albumin 4.2, Globulin 3.2, Albumin/Globulin Ratio 1.3, TSH 1.39, Thyroxine (T4) 9.2 03/28/24 18:20: Urine Color Yellow, Urine Appearance Clear, Urine pH 6.0, Ur Specific [place] 1.025, Urine Protein Trace, Urine Glucose (UA) Negative, Urine Ketones 1+, Urine Blood Negative, Urine Nitrate Negative, Urine Bilirubin 2+ A, Urine Urobilinogen 1.0, Ur Leukocyte Esterase Negative, Urine RBC None, Urine WBC Occasional, Ur Squamous Epith Cells 20-50, Urine Bacteria 1+ 03/28/24 18:18 03/28/24 18:18 Orders (Tests/Meds): ED MEDICATIONS Generic Name Dose Route Start Last Admin Trade Name Freq PRN Reason Stop Dose Admin Sodium Chloride 10 ml 03/28/24 18:24 Sodium Chloride 0.9% 10ml Flush Syringe IV 04/27/24 18:23 NEEDED PRN Maintain IV Site ORDERS Category Date Time Status CBC w/Auto Diff [Complete Blood Count Auto Diff] Stat Lab 03/28/24 18:18 Completed CMP [Comprehensive Metabolic Panel] Stat Lab 03/28/24 18:18 Completed HIV (1&2) Antibody Rapid Stat Lab 03/28/24 18:18 Received Hep C Ab with Reflex to RNA Stat Lab 03/28/24 18:18 Received MAG [Magnesium] Stat Lab 03/28/24 18:18 Completed T4 (Thyroxine) Stat Lab 03/28/24 18:18 Completed TSH [Thyroid Stimulating Hormone] Stat Lab 03/28/24 18:18 Completed UA [Urinalysis and Microscopic] Stat Lab 03/28/24 18:20 Completed Medical Decision Narrative: 58-year-old female history of, hyperlipidemia, TIA, tremor, COPD still smoking 1/2 pack/day, likely early onset dementia presenting multiple complaints. Patient states that she has been forgetting things recently and getting lost in her house. States that when she tries to go to the bathroom, intermittently walking in the opposite direction, family members are getting frustrated with her. States that she is getting scared because of it. Feeling generally weak, no other acute symptoms. Denies chest pain, shortness of breath, nausea, vomiting, fevers, chills, night sweats, falls, vision changes, neck or back pain, unilateral deficits, or any other concerns history was obtained via conversation with patient and . On arrival, patient hemodynamically stable, alert, oriented x4, appropriate, GCS 15, moving all extremities spontaneously, pupils equal and reactive to light. Full physical exam performed and significant for patient tearful when explaining her symptoms, but clinically well-appearing. Lungs are clear, cardiac exam normal. No lower extremity edema. Pulses are equal. She does have boot in her left lower extremity from a fracture she recently sustained. Ambulated to the bed without issue. Grossly neurologically intact. She does have intention tremor primarily left upper extremity, but otherwise unremarkable exam. Differential includes early onset dementia, metabolic abnormality, thyroid abnormality, other endocrinologic abnormality, UTI, among others. Patient placed on continuous cardiac monitoring and continuous pulse ox with initial blood pressure 147/79, heart rate 89, saturation 93% on room air. Workup independently interpreted and significant for nonactionable hematologic workup. On independent interpretation of imaging, bilateral occipital infarcts on MRI performed on 03/18. See radiology read for full review of final results. on reevaluation, patient resting at baseline. Given patient presentation, workup, history, this most likely represents tremor, likely Secondary to patient's progressive neurologic decline. Because patient at baseline without signs or symptoms of clinical decompensation, deemed appropriate for discharge. Results were relayed to patient who voiced understanding and were agreeable to outpatient management and follow up. I discussed my clinical impression with patient and answered all questions. At this time, the evidence for any other entities in the differential is insufficient to warrant any further testing or ED observation. This was explained as well. Advisory was given that persistent or worsening symptoms require further evaluation. I confirmed the understanding of this discussion. Schedule [employer]anger disclaimer Much of this encounter note is an electronic church worker spoken language to printed text. Electronic church worker of the spoken language may permit errors. Although I have reviewed the note, some errors may still exist. Critical Care Critical Care Time Critical Care Time: No
[2024-03-28 18:38] LABS: Alanine Aminotransferase 24 U/L (12-78); Albumin/Globulin Ratio 1.3 (1.1-1.8); Alkaline Phosphatase 95 U/L (38-126); Anion Gap 8.8 mEq/L (5-15); Aspartate Amino Transferase 24 U/L (14-36); Bilirubin,Total 0.5 mg/dl (0.2-1.3); Calcium 9.2 mg/dl (8.4-10.2); Carbon Dioxide 31 mmol/L (22.0-30.0); Globulin 3.2 g/dL (1.3-3.2); Glucose 114 mg/dl (74-100); Magnesium 1.7 mg/dl (1.6-2.3); Total Protein,Serum 7.4 g/dl (6.3-8.2)
[2024-03-28 18:40] LABS: Bilirubin,Urine 2+ (Negative)
[2024-03-28 18:43] LABS: Bacteria,Urine 1+ /lpf; Squamous Epithelial Cell,Urine 20-50 #/hpf (0-5); WBC,Urine Occasional #/hpf (0-3)
[2024-03-28 18:55] LABS: T4 (Thyroxine) 9.2 ug/dl (5.53-11.0)
[2024-03-28 19:08] LABS: Thyroid Stimulating Hormone 1.39 uIU/mL (0.465-4.68)
[2024-03-28 20:15] VITALS: BP 102/62; PULSE 80; RESP 18; TEMP 36.5; O2SAT 96
[2024-03-28 20:48] LABS: HIV (1&2) Antibody Rapid NONREACTIVE (NONREACTIVE)
[2024-03-28 20:53] LABS: Chol/HDL Ratio 2.2 (1-3.5); Cholesterol 176 mg/dl (140-200); HDL Cholesterol 81 mg/dl (40-60); Triglycerides 185 mg/dl (30-150); VLDL Cholesterol 37 mg/dL (0-40)
[2024-03-28 21:04] LABS: Direct LDL Cholesterol 58.72 mg/dL (100-129)
[2024-03-30 08:19] LABS: HCV Ab Non Reactive (Non Reactive)
== END 2024-03-28 20:23 | disposition home or self-care (01) ==
PROVIDERS: Emergency Provider Emergency Medicine; PCP Nurse Practitioner Family
DX: R25.1 Tremor, unspecified (principal); G31.84 Mild cognitive impairment of uncertain or unknown etiology; R53.1 Weakness; M79.672 Pain in left foot; R29.6 Repeated falls
CPT/HCPCS: 80053; 80061; 81001; 83735; 84436; 84443; 85025; 86803; 87389; 99283

== ENCOUNTER 2024-04-27 22:21 | Emergency (ER) | payer MEDICARE, MEDICAID, SELFPAY ==
[2024-04-27 23:11] VITALS: BP 153/80; PULSE 75; RESP 17; TEMP 36.5; O2SAT 94; BMI 33.6
--- NOTE | 2024-04-27 23:11 | PC.NURSE ---
MD notifed of pt symptoms. NIH of 0 with nausea. MD comfortable with labs and no stroke alert. MD gave verbal order for ODT zofran.
--- NOTE | 2024-04-27 23:57 | ED_ITS ---
Discharge Plan Disposition Patient Disposition: Home, Self-Care Prescriptions Prescriptions: New meclizine 25 mg tablet 25 mg PO TID PRN (Reason: dizziness) Qty: 20 1RF No Action albuterol sulfate 90 mcg/actuation HFA aerosol inhaler 1 inh inhalation Q4-6H PRN (Reason: Shortness Of Breath Or Wheezing) Qty: 8.5 2RF amlodipine 5 mg tablet 5 mg PO DAILY 90 Days Qty: 90 1RF atorvastatin 80 mg tablet 80 mg PO QHS Qty: 90 1RF clopidogrel 75 mg tablet 75 mg PO DAILY Qty: 90 1RF cyclobenzaprine 10 mg tablet See Rx Instructions .ROUTE .COMPLEX Qty: 90 0RF Dose Instruction: Take 1 tablet by mouth three times daily as needed for muscle spasm Rx Instructions: Take 1 tablet by mouth three times daily as needed for muscle spasm lisinopril 5 mg tablet 5 mg PO DAILY Qty: 90 1RF omeprazole 40 mg capsule,delayed release(DR/EC) See Rx Instructions .ROUTE .COMPLEX Qty: 90 0RF Dose Instruction: TAKE 1 CAPSULE BY MOUTH ONCE DAILY FOR GERD Rx Instructions: TAKE 1 CAPSULE BY MOUTH ONCE DAILY FOR GERD bupropion HCl [Wellbutrin SR] 150 mg tablet sustained-release 12 hr 150 mg PO BID Qty: 60 2RF fluoxetine 20 mg tablet 20 mg PO BID Qty: 60 2RF trazodone 50 mg tablet 50 mg PO DAILY Qty: 30 2RF aspirin [Adult Low Dose Aspirin] 81 mg tablet,delayed release (DR/EC) 81 mg PO DAILY Spiriva Respimat 2.5 mcg/actuation mist inhalation (DME) Dickson Aerosol Amelia Enhancer Spacer See Rx Instructions .Route Qty: 1 0RF Rx Instructions: As directed cholecalciferol (vitamin D3) 125 mcg (5,000 unit) capsule 125 mcg PO DAILY Qty: 30 2RF Veozah 45 mg tablet 45 mg PO DAILY Qty: 30 2RF Referrals Follow up/Referrals: Frandy Valdes DO [Primary Care Provider] - See instructions Activity Restrictions/Add. Instructions Additional Instructions/Restrictions: Please begin taking the meclizine as needed for episodes of dizziness. Please follow-up with your primary care doctor, they could consider doing vestibular rehab to see if that will help with your dizziness episodes. Please return to the emergency department if you develop any new or worsening symptoms or become concerned for your health. Clinical Impressions Clinical Impression: Vertigo, Memory changes Print Language Print Language: Sami Discharge ED Provider: Balaji Martinez General Adult HPI General Chief complaint: Dizziness Stated complaint: shaky,nausea, dizzy Time Seen by Provider: 04/27/24 23:56 Mode of Arrival: Wheelchair Source of Information: Patient Limitations: No Limitations Description of Symptoms (Recalled from ER Triage Doc. by RN): pt to the ED with dizziness, nausea and poor balance x a few months. pt denies denies any unilater weakness at this time. pt NIH is 0 on triage assessment. History of Present Illness HPI narrative: 58-year-old female with history of prior stroke, chronic vertigo, tremors, COPD presents for worsening of her dizziness. She reports that she has been having vertigo for months after her stroke. She reports that over the last few days it has gotten worse. It does not feel different necessarily, just worse than normal. She reports that it is associated with headache at times. She reports that most recent symptoms started a couple of days ago. She reports that she does see neurology, she is on medications for stroke, she is not on anything for dizziness as far she is aware. She denies any significant infectious symptoms such as respiratory symptoms or urinary symptoms. Reports normal p.o. intake. Related Data Home Medications ?Medication ?Instructions ?Recorded ?Confirmed aspirin 81 mg tablet,delayed 81 mg PO DAILY 01/06/24 04/21/24 release (Adult Low Dose Aspirin) tiotropium bromide 2.5 inhalation 01/06/24 04/21/24 mcg/actuation mist for inhalation (Spiriva Respimat) Previous Rx's ?Medication ?Instructions ?Recorded albuterol sulfate 90 mcg/actuation 1 inh inhalation Q4-6H PRN 05/15/23 aerosol inhaler Shortness Of Breath Or Wheezing #8.5 grams amlodipine 5 mg tablet 5 mg PO DAILY 90 days #90 tabs 02/05/24 atorvastatin 80 mg tablet 80 mg PO QHS #90 tabs 02/05/24 clopidogrel 75 mg tablet 75 mg PO DAILY #90 tabs 02/05/24 cyclobenzaprine 10 mg tablet See Rx Instructions .Route 02/05/24 .COMPLEX #90 tabs inhalational spacing device (Dickson #1 ea 02/05/24 Aerosol Amelia Enhancer spacer) lisinopril 5 mg tablet 5 mg PO DAILY #90 tabs 02/05/24 cholecalciferol (vitamin D3) 125 125 mcg PO DAILY #30 caps 02/06/24 mcg (5,000 unit) capsule bupropion HCl 150 mg tablet,12 hr 150 mg PO BID #60 ea 03/31/24 sustained-release (Wellbutrin SR) fluoxetine 20 mg tablet 20 mg PO BID Depression #60 tabs 03/31/24 omeprazole 40 mg capsule,delayed See Rx Instructions .Route 03/31/24 release .COMPLEX #90 caps trazodone 50 mg tablet 50 mg PO DAILY #30 tabs 03/31/24 fezolinetant 45 mg tablet (Veozah) 45 mg PO DAILY #30 tabs 04/21/24 meclizine 25 mg tablet 25 mg PO TID PRN dizziness #20 tabs 04/28/24 Allergies Allergy/AdvReac Type Severity Reaction Status Date / Time Penicillins Allergy Severe Swelling Verified 04/21/24 14:09 of Lip/Tongue/Throat morphine [MORPHINE] Allergy Intermediate Verified 04/21/24 14:09 naproxen [From ALEVE] Allergy Unknown SWELLING Verified 04/21/24 14:09 [facility] Disclaimer: The information contained in this section may have been updated after the patient was seen, as this information can be updated by other users. Medical History Asthma Chronic calculous cholecystitis COPD (chronic obstructive pulmonary disease) Macrocytosis Surgical History H/O elbow surgery H/O removal of cyst left cheek History of ankle surgery History of bilateral tubal ligation History of cholecystectomy History of surgery on wrist Family History Other No significant family history Social History Smoking Status: Current every day smoker tobacco type: cigarettes packs per day: 1 second hand exposure: Yes alcohol intake: current alcohol intake frequency: 0-2 drinks per day substance use type: denies use current occupational status: other Travel in the last 8 weeks: None household members: spouse housing: apartment current occupational exposures/hazards: No caffeine: Yes Other Medical History Have you received the Flu Vaccine for this season: No Have you received the Pneumonia Vaccine: No ROS Obtained: Yes All systems reviewed & no additional complaints except as documented Physical Exam General General appearance: alert and in no apparent distress Head Head exam: atraumatic and normocephalic Eye Eye exam: Present normal appearance and PERRL ENT ENT exam: Present normal oropharynx and normal external ear exam Neck Neck exam: Present normal inspection and full ROM Chest Chest inspection: Present normal inspection and symmetric chest wall rise; Absent tenderness Respiratory Respiratory exam: Present normal lung sounds bilaterally; Absent respiratory distress Cardiovascular Cardiovascular exam: Present regular rate and normal rhythm Abdominal Exam Abdominal exam: Present soft; Absent distention, tenderness or guarding Extremities Exam Extremities exam: Present normal inspection; Absent edema or joint swelling Back Exam Back exam: Present normal inspection; Absent tenderness Neurological Exam Neurological exam: Present alert, oriented X3 and other (Horizontal nystagmus noted on bilateral lateral gaze. Cranial nerves otherwise intact. Romberg negative. FTN normal, [id number] normal); Absent motor sensory deficit Psychiatric Psychiatric exam: Present normal affect and normal mood Skin Skin exam: Present warm, dry and normal color Lymphatic Lymphatic Findings: no adenopathy Medical Decision Making Medical Records Medical records reviewed: Yes I reviewed the patient's medical records. Screening: Per USPSTF and CDC recommendations, given the prevalence of disease in our region, it is our hospital?s policy to screen for HIV and viral Hepatitis for all patients aged 18 and over and those with ongoing risk factors. Ronnie Inquiry Pt receiving controlled substance: No Ronnie was queried for this patient: No Vital Signs: 04/27/24 23:11 04/28/24 00:01 04/28/24 02:18 Temperature 97.7 F 97.8 F Temperature Source Oral Pulse Rate 74 74 Pulse Rate [Left Radial] 75 Respiratory Rate 17 20 Blood Pressure 128/66 133/69 Blood Pressure [Right Arm] 153/80 H Blood Pressure Mean [Right Arm] 104 Blood Pressure Source [Right Arm] Automatic Cuff Blood Pressure Position [Right Arm] Sitting 02 Sat by Pulse Oximetry 94 L 99 Oxygen Delivery Method Room Air Room Air 04/28/24 02:21 Temperature Temperature Source Pulse Rate 75 Pulse Rate [Left Radial] Respiratory Rate Blood Pressure 133/69 Blood Pressure [Right Arm] Blood Pressure Mean [Right Arm] Blood Pressure Source [Right Arm] Blood Pressure Position [Right Arm] 02 Sat by Pulse Oximetry 96 Oxygen Delivery Method Lab Data Lab results reviewed: Yes I reviewed the patient's lab results. Lab Results 04/28/24 00:00: WBC 9.0, RBC 4.33, Hgb 14.7, Hct 44.1, MCV 101.9 H, MCH 34.0 H, MCHC 33.3, RDW 13.4, Plt Count 240, MPV 7.3 L, Neut % (Auto) 64.8, Lymph % (Auto) 27.8, Dale % (Auto) 5.7, Eos % (Auto) 0.8, Baso % (Auto) 0.8, Neut # (Auto) 5.8, Lymph # (Auto) 2.5, Dale # (Auto) 0.5, Eos # (Auto) 0.1, Baso # (Auto) 0.1, Sodium 137, Potassium 4.1, Chloride 101, Carbon Dioxide 33 H, Anion Gap 7.1, BUN 17, Creatinine 0.80, Estimated Creat Clear 102, Estimated GFR 73, Est GFR ( Amer) 89, Glucose 122 H, Calcium 9.5, Total Bilirubin 0.5, AST 20, ALT 16, Alkaline Phosphatase 106, Total Protein 7.3, Albumin 4.3, Globulin 3.0, Albumin/Globulin Ratio 1.4 04/28/24 00:52: SARS-CoV-2 (PCR) Not detected, Influenza A Untype (PCR) Not detected, Influenza Type B (PCR) Not detected 04/28/24 01:19: Urine Color Yellow, Urine Appearance Clear, Urine pH 7.0, Ur Specific Holland 1.010, Urine Protein Negative, Urine Glucose (UA) Negative, Urine Ketones Negative, Urine Blood Negative, Urine Nitrate Negative, Urine Bilirubin Negative, Urine Urobilinogen 0.2, Ur Leukocyte Esterase Negative, Urine RBC Occasional, Urine WBC None, Ur Squamous Epith Cells 3-5, Urine Bacteria Trace 04/28/24 00:00 04/28/24 00:00 Orders (Tests/Meds): ED MEDICATIONS Discontinued Medications Generic Name Dose Route Start Last Admin Trade Name Freq PRN Reason Stop Dose Admin Iopamidol 80 ml 04/28/24 00:50 04/28/24 00:51 Iopamidol-370 (76%);100ml Bottle IV 04/28/24 00:51 80 ml ONCE ONE Administration Meclizine HCl 25 mg 04/28/24 00:11 04/28/24 00:35 Meclizine 25mg Tablet PO 04/28/24 00:12 25 mg ONCE ONE Administration Ondansetron HCl 4 mg 04/27/24 23:28 Ondansetron 4mg Odt SL 04/27/24 23:29 ONCE ONE Sodium Chloride 50 ml 04/28/24 00:50 04/28/24 00:50 0.9 % Sodium Chloride 50 Ml Vial IV 04/28/24 00:51 50 ml ONCE ONE Administration Sodium Chloride 10 ml 04/28/24 00:50 04/28/24 00:51 Sodium Chloride 0.9% 10ml Syr (Rad Only) IV 05/28/24 00:49 10 ml NEEDED PRN Administration Maintain IV Site ORDERS Category Date Time Status CT angio head Stat Cat Scan 04/28/24 00:[address] angio neck Stat Cat Scan 04/28/24 00:[address] head/brain wo con Stat Cat Scan 04/28/24 00:11 Completed CBC w/Auto Diff [Complete Blood Count Auto Diff] Stat Lab 04/28/24 00:00 Completed CMP [Comprehensive Metabolic Panel] Stat Lab 04/28/24 00:00 Completed Rapid PCR Covid and Flu A/B Stat Lab 04/28/24 00:52 Completed UA [Urinalysis and Microscopic] Stat Lab 04/28/24 01:19 Completed Medical Decision Narrative: 58-year-old female with history of stroke with residual vertigo/dizziness presents for worsening of the symptoms over the last several days.. History was obtained via interactive discussion with patient. On arrival, patient is [afebrile, hemodynamically stable, satting appropriately, alert, oriented x4, GCS 15], moving all extremities spontaneously. Full physical exam performed and significant for nystagmus with lateral gaze bilaterally. Differential includes but is not limited to exacerbation of patient's stroke deficits, new stroke, vestibular neuritis, BPPV, etc. Patient was given Zofran and meclizine for symptomatic management and correction of underlying abnormalities. Workup initiated including CBC CMP UA CT head CTA head neck. No tPA and no stroke or given patient is well outside of the intervention window. On re-evaluation, patient [remains afebrile, HD stable.] She reports that she believes the meclizine is helping her symptoms. Laboratory workup independently interpreted by me and significant for no significant electrolyte derangement, normal renal function.. Imaging independently interpreted by me and significant for sequelae of old strokes, no new, no large vessel occlusion or critical stenosis. Does have less than 50% stenosis of the right ICA.. See radiology read for full review of final results. Admission for MRI was considered, but deemed unnecessary due to history and exam. Given patient history, exam and workup, patient's presentation most likely represents exacerbation of patient's chronic vertigo as result of her prior strokes. I cannot definitively rule out a new stroke without MRI, but patient is not within the window for any intervention and is already on maximal medical therapy for stroke prophylaxis. Patient symptoms are also consistent with her prior symptoms, just worse today than normal. She is already following with neurology. Patient reports that she would like to try the meclizine and will follow-up with her PCP for further assessment. Patient was given strict return precautions and discharged in stable condition. Procedures Risk/Benefits of Procedure(s) Were Explained: Yes Critical Care Critical Care Time Critical Care Time: No
[2024-04-28 00:01] VITALS: BP 128/66; PULSE 74; O2SAT 99
--- NOTE | 2024-04-28 00:11 | CT_ITS ---
PROCEDURE INFORMATION: Exam: CTA Head With Contrast, Arteriography Exam date and time: 04/28/2024 12:40 AM Age: 58 years old Clinical indication: Pain; Vertigo; Headache; Additional info: Worsening vertigo/headaches, prior strokes TECHNIQUE: Imaging protocol: Computed tomographic angiography of the head with contrast. Exam focused on the arteries. 3D rendering (Not supervised by radiologist): MIP and/or 3D reconstructed images were created by the technologist. Radiation optimization: All CT scans at this facility use at least one of these dose optimization techniques: automated exposure control; mA and/or kV adjustment per patient size (includes targeted exams where dose is matched to clinical indication); or iterative reconstruction. Contrast material: ISOUVE 370; Contrast volume: 80 ml; Contrast route: INTRAVENOUS (IV); COMPARISON: CT ANGIO HEAD 12/23/2023 7:26 PM FINDINGS: ANTERIOR CIRCULATION: Right internal carotid artery: Intracranial segment is patent with no significant stenosis. No aneurysm. Right middle cerebral artery: No occlusion or significant stenosis. No aneurysm. Right anterior cerebral artery: No occlusion or significant stenosis. No aneurysm. Left internal carotid artery: Intracranial segment is patent with no significant stenosis. No aneurysm. Left middle cerebral artery: No occlusion or significant stenosis. No aneurysm. Left anterior cerebral artery: No occlusion or significant stenosis. No aneurysm. POSTERIOR CIRCULATION: Right vertebral artery: No occlusion or significant stenosis. No aneurysm. Left vertebral artery: No occlusion or significant stenosis. No aneurysm. Basilar artery: No occlusion or significant stenosis. No aneurysm. Right posterior cerebral artery: No occlusion or significant stenosis. No aneurysm. Left posterior cerebral artery: No occlusion or significant stenosis. No aneurysm. Brain: No definite mass, mass effect, or midline shift. Subacute/old bilateral medial parieto-occipital lobe infarcts. Cerebral ventricles: No ventriculomegaly. Bones/joints: Unremarkable. No acute fracture. Soft tissues: Unremarkable. Thyroid: Thyroid nodularity without dominant nodule. IMPRESSION: No large vessel stenosis or occlusion.
--- NOTE | 2024-04-28 00:11 | CT_ITS ---
PROCEDURE INFORMATION: Exam: CT Head Without Contrast Exam date and time: 04/28/2024 12:38 AM Age: 58 years old Clinical indication: Pain; Dizziness; Headache; Additional info: Worsening vertigo/headaches, prior strokes TECHNIQUE: Imaging protocol: Computed tomography of the head without contrast. Radiation optimization: All CT scans at this facility use at least one of these dose optimization techniques: automated exposure control; mA and/or kV adjustment per patient size (includes targeted exams where dose is matched to clinical indication); or iterative reconstruction. COMPARISON: CT ANGIO HEAD 12/23/2023 7:26 PM FINDINGS: Brain: Normal. Subacute/old bilateral medial parieto-occipital lobe infarcts. These are reported the prior MR of the brain from 03/18/2024. The images from that study are not available for comparison. No hemorrhage. There is mild periventricular white matter hypodensity consistent with chronic small vessel disease. No mass effect. Cerebral ventricles: No ventriculomegaly. Paranasal sinuses: Visualized sinuses are unremarkable. No fluid levels. Mastoid air cells: Visualized mastoid air cells are well aerated. Orbital cavities: The orbital contents are symmetric and normal. Bones: Unremarkable. No acute fracture. Soft tissues: Unremarkable. IMPRESSION: Subacute/old bilateral medial parieto-occipital lobe infarcts. No acute findings.
--- NOTE | 2024-04-28 00:11 | CT_ITS ---
PROCEDURE INFORMATION: Exam: CTA Neck With Contrast Exam date and time: 04/28/2024 12:40 AM Age: 58 years old Clinical indication: Pain; Vertigo; Headache; Additional info: Worsening vertigo/headaches, prior strokes TECHNIQUE: Imaging protocol: Computed tomographic angiography of the neck with contrast. Exam focused on the cervical segments of the vasculature. 3D rendering (Not supervised by radiologist): MIP and/or 3D reconstructed images were created by the technologist. Radiation optimization: All CT scans at this facility use at least one of these dose optimization techniques: automated exposure control; mA and/or kV adjustment per patient size (includes targeted exams where dose is matched to clinical indication); or iterative reconstruction. Contrast material: ISOUVE 370; Contrast volume: 80 ml; Contrast route: INTRAVENOUS (IV); COMPARISON: CT ANGIO HEAD 04/28/2024 12:40 AM FINDINGS: Right common carotid artery: No stenosis. No dissection or occlusion. Right internal carotid artery: Mild calcific plaque of the proximal ICA with less than 50% stenosis. No dissection or occlusion. Right external carotid artery: No occlusion or stenosis of the origin. Left common carotid artery: No stenosis. No dissection or occlusion. Left internal carotid artery: No stenosis of the extracranial segment. No dissection or occlusion. Left external carotid artery: No occlusion or stenosis of the origin. Right vertebral artery: No stenosis. No dissection or occlusion. Left vertebral artery: No stenosis. No dissection or occlusion. Thyroid: Thyroid nodularity without dominant nodule. Soft tissues: Normal. No significant soft tissue swelling. Bones/joints: No acute fracture. Significant degenerative disc disease from C4 through C7. IMPRESSION: 1. Less than 50% stenosis proximal right ICA. No left ICA stenosis. REFERENCES: 2. NASCET CRITERIA. The degree of stenosis in the cervical segment of the internal carotid artery is based on NASCET criteria. Normal is no stenosis. Mild is less than 50% stenosis. Moderate is 50-69% stenosis. Severe is 70% to 99% stenosis. Total occlusion is no detectable patent lumen. REFERENCES: NASCET CRITERIA. The degree of stenosis in the cervical segment of the internal carotid artery is based on NASCET criteria. Normal is no stenosis. Mild is less than 50% stenosis. Moderate is 50-69% stenosis. Severe is 70% to 99% stenosis. Total occlusion is no detectable patent lumen.
[2024-04-28 00:20] LABS: Chloride 101 mmol/L (98-107)
[2024-04-28 00:21] LABS: Albumin Level 4.3 g/dl (3.5-5.0); Potassium 4.1 mmoL/L (3.5-5.1); Sodium 137 mmol/L (136-145)
[2024-04-28 00:23] LABS: Alanine Aminotransferase 16 U/L (12-78); Anion Gap 7.1 mEq/L (5-15); Aspartate Amino Transferase 20 U/L (14-36); Blood Urea Nitrogen 17 mg/dl (7-17); Carbon Dioxide 33 mmol/L (22.0-30.0); Creatinine Clearance Estimated 102 mL/min (50-200); Estimated Glomerular Filt Rate 73 ml/min (>60); GFR (African American) 89 ML/MIN (>60)
[2024-04-28 00:24] LABS: Albumin/Globulin Ratio 1.4 (1.1-1.8); Alkaline Phosphatase 106 U/L (38-126); Bilirubin,Total 0.5 mg/dl (0.2-1.3); Calcium 9.5 mg/dl (8.4-10.2); Glucose 122 mg/dl (74-100); Total Protein,Serum 7.3 g/dl (6.3-8.2)
[2024-04-28 00:32] LABS: Basophils # 0.1 K/mm3 (0-0.2); Basophils % 0.8 % (0.1-2.0); Eosinophils # 0.1 K/mm3 (0.0-0.4); Eosinophils % 0.8 % (0.1-12.0); Hematocrit 44.1 % (37.0-47.0); Hemoglobin 14.7 g/dL (12.2-16.2); Lymphocytes # 2.5 K/mm3 (0.7-4.5); Lymphocytes % 27.8 % (10-50); Mean Corpuscular HGB Conc 33.3 g/dL (31.8-35.4); Mean Corpuscular Volume 101.9 fl (81-99); Mean Platelet Volume 7.3 fl (7.4-10.4); Monocytes # 0.5 K/mm3 (0.1-1.0); Monocytes % 5.7 % (1.7-9.3); Neutrophils # 5.8 K/mm3 (1.8-7.8); Neutrophils % 64.8 % (37.0-80.0); Platelet Count 240 K/mm3 (142-424); Red Blood Count 4.33 M/mm3 (4.20-5.40); Red Cell Distribution Width 13.4 % (11.5-17.5)
[2024-04-28] MEDS: MECLIZINE 25MG TABLET 25 MG PO (00:35)
[2024-04-28] MEDS: 0.9 % SODIUM CHLORIDE 50 ML VIAL IV (00:50)
[2024-04-28] MEDS: SODIUM CHLORIDE 0.9% 10ML SYR (RAD ONLY) 10 ML IV (00:51)
[2024-04-28] MEDS: IOPAMIDOL-370 (76%);100ML BOTTLE 80 ML IV (00:51)
[2024-04-28 00:57] LABS: Coronavirus 19, PCR Not Detected (NotDetected); Influenza A, PCR Not Detected (NotDetected); Influenza B, PCR Not Detected (NotDetected)
[2024-04-28 01:25] LABS: Appearance,Urine CLEAR (Clear); Bilirubin,Urine Negative (Negative); Blood, Urine Negative (Negative); Color,Urine YELLOW (Yellow); Glucose,Urine (UA) Negative (Negative); Ketones,Urine Negative (Negative); Leukocyte Esterase,Urine Negative (Negative); Microscopic, Urine URINE MICROSCOPIC (MICROSCOPIC); Nitrate,Urine Negative (Negative); Protein,Urine Negative (Negative); Urobilinogen,Urine 0.2 EU/dl (0.2)
[2024-04-28 01:39] LABS: Bacteria,Urine Trace /lpf; RBC,Urine Occasional #/hpf (0-3)
[2024-04-28 02:18] VITALS: BP 133/69; PULSE 74; RESP 20; TEMP 36.6; O2SAT 97
[2024-04-28 02:21] VITALS: BP 133/69; PULSE 75; O2SAT 96
--- NOTE | 2024-04-28 23:29 | ECG_ITS ---
APPROVED REPORT Exam: Resting ECG HR:69 bpm ECG Measurements Heart Rate 69 AXES IA 151 P 71 QRSd 91 QRS 38 QT 375 T 74 QTc 393 Conclusion SINUS RHYTHM NORMAL ECG UNCONFIRMED REPORT Electronically signed by : SAKINA FLORES, 04/30/2024 06:49:58
== END 2024-04-28 02:26 | disposition home or self-care (01) ==
PROVIDERS: Emergency Provider Emergency Medicine; PCP Internal Medicine
DX: R42 Dizziness and giddiness (principal)
CPT/HCPCS: 70450; 70496; 70498; 80053; 81001; 85025; 87636; 93005; 99285; Q9967

== ENCOUNTER 2024-12-05 00:13 | Emergency (ER) | payer MEDICARE, MEDICAID, SELFPAY ==
[2024-12-05] VITALS (7 sets, daily range): BP systolic 149–171; BP diastolic 66–92; PULSE 66–86; RESP 15–23; TEMP 36.7; O2SAT 90–96; BMI 31.8
--- NOTE | 2024-12-05 00:19 | ED_ITS ---
Discharge Plan Disposition Patient Disposition: Left Against Medical Advice Condition: Fair Prescriptions Prescriptions: No Action amlodipine 5 mg tablet 5 mg PO DAILY 90 Days Qty: 90 1RF atorvastatin 80 mg tablet 80 mg PO QHS Qty: 90 1RF clopidogrel 75 mg tablet 75 mg PO DAILY Qty: 90 1RF cyclobenzaprine 10 mg tablet See Rx Instructions .ROUTE .COMPLEX Qty: 90 0RF Dose Instruction: Take 1 tablet by mouth three times daily as needed for muscle spasm Rx Instructions: Take 1 tablet by mouth three times daily as needed for muscle spasm lisinopril 5 mg tablet 5 mg PO DAILY Qty: 90 1RF omeprazole 40 mg capsule,delayed release(DR/EC) See Rx Instructions .ROUTE .COMPLEX Qty: 90 0RF Dose Instruction: TAKE 1 CAPSULE BY MOUTH ONCE DAILY FOR GERD Rx Instructions: TAKE 1 CAPSULE BY MOUTH ONCE DAILY FOR GERD bupropion HCl [Wellbutrin SR] 150 mg tablet sustained-release 12 hr 150 mg PO BID Qty: 60 2RF fluoxetine 20 mg tablet 20 mg PO BID Qty: 60 2RF trazodone 50 mg tablet 50 mg PO DAILY Qty: 30 2RF ondansetron 8 mg tablet,disintegrating 8 mg PO Q8H PRN (Reason: nausea and vomiting) Qty: 30 1RF aspirin [Adult Low Dose Aspirin] 81 mg tablet,delayed release (DR/EC) 81 mg PO DAILY Spiriva Respimat 2.5 mcg/actuation mist inhalation (DME) Dickson Aerosol [place] Enhancer Spacer See Rx Instructions .Route Qty: 1 0RF Rx Instructions: As directed cholecalciferol (vitamin D3) 125 mcg (5,000 unit) capsule 125 mcg PO DAILY Qty: 30 2RF Veozah 45 mg tablet 45 mg PO DAILY Qty: 30 2RF albuterol sulfate 90 mcg/actuation HFA aerosol inhaler See Rx Instructions .ROUTE .COMPLEX Qty: 9 0RF Dose Instruction: INHALE 1 PUFF BY MOUTH EVERY 4 TO 6 HOURS NEEDED FOR SHORTNESS OF BREATH OR WHEEZING Rx Instructions: INHALE 1 PUFF BY MOUTH EVERY 4 TO 6 HOURS NEEDED FOR SHORTNESS OF BREATH OR WHEEZING Referrals Follow up/Referrals: Frandy Valdes DO [Primary Care Provider, Family Practice] - See instructions Clinical Impressions Clinical Impression: Chest pain, Vomiting Print Language Print Language: Khmer Discharge ED Provider: Taos,Balaji General Adult HPI General Chief complaint: Chest Pain Stated complaint: vomiting, tremors, chest pain Time Seen by Provider: 12/05/24 00:17 History of Present Illness HPI narrative: [id number]-pam for with history of prior CVA, hypertension, hyperlipidemia, COPD presents for chest pain. She reports symptoms started earlier today. Left- sided. Nonradiating. She took some antacids which normally helps but did not help this time. She reports that she was sitting at her house today and felt hot and sweaty and lightheaded even though she had multiple fans. It was very hot today. She denies any significant cough. Denies any urinary symptoms. Denies dizziness. Reports that she did have some vomiting earlier but denies any abdominal pain. Status post cholecystectomy. Related Data Home Medications ?Medication ?Instructions ?Recorded ?Confirmed aspirin 81 mg tablet,delayed 81 mg PO DAILY 01/06/24 1 07/05/23 release (Adult Low Dose Aspirin) tiotropium bromide 2.5 inhalation 01/06/24 05/05/24 mcg/actuation mist for inhalation (Spiriva Respimat) Previous Rx's ?Medication ?Instructions ?Recorded amlodipine 5 mg tablet 5 mg PO DAILY 90 days #90 ta bs 02/05/24 atorvastatin 80 mg tablet 80 mg PO QHS #90 tabs clopidogrel 75 mg tablet 75 mg PO DAILY #90 tabs 01/15 08/09 cyclobenzaprine 10 mg tablet See Rx Instructions .Rout e 02/05/24 .COMPLEX #90 tabs inhalational spacing device (Dickson #1 ea 02/05/24 Aerosol [place] Enhancer spacer) lisinopril 5 mg tablet 5 mg PO DAILY #90 tabs 02/04 cholecalciferol (vitamin D3) 125 125 mcg PO DAILY #30 caps 02/06/24 mcg (5,000 unit) capsule bupropion HCl 150 mg tablet,12 hr 150 mg PO BID #60 ea 03/31/24 sustained-release (Wellbutrin SR) fluoxetine 20 mg tablet 20 mg PO BID Depression #60 tabs 03/31/24 omeprazole 40 mg capsule,delayed See Rx Instructions . Route 03/31/24 release .COMPLEX #90 caps trazodone 50 mg tablet 50 mg PO DAILY #30 tabs 03/16 12/07 fezolinetant 45 mg tablet (Veozah) 45 mg PO DAILY #30 tabs 04/21/24 ondansetron 8 mg disintegrating 8 mg PO Q8H PRN nausea and 05/05/24 tablet vomiting #30 tabs albuterol sulfate 90 mcg/actuation See Rx Instructions .Route 05/26/24 aerosol inhaler .COMPLEX #9 grams Allergies Allergy/AdvReac Type Severity Reaction Status Date / Time Penicillins Allergy Severe Swelling Verified 05/05/24 12:56 of Lip/Tongue/Throat morphine (MORPHINE) Allergy Intermediate Verified 05/05/24 12:56 naproxen (From [facility]) Allergy Unknown SWELLING Verified 05/05/24 12:56 [facility] Disclaimer: The information contained in this section may have been updated after the patient was seen, as this information can be updated by other users. Medical History Asthma Macrocytosis Chronic calculous cholecystitis COPD (chronic obstructive pulmonary disease) Surgical History History of cholecystectomy History of ankle surgery H/O elbow surgery History of surgery on wrist H/O removal of cyst left cheek History of bilateral tubal ligation Family History Other No significant family history Social History Smoking Status: Current every day smoker tobacco type: cigarettes packs per day: 1 second hand exposure: Yes alcohol intake: current alcohol intake frequency: 0-2 drinks per day substance use type: denies use current occupational status: other Travel in the last 8 weeks?: None household members: spouse housing: apartment current occupational exposures/hazards: No caffeine: Yes Have you lived/traveled outside [place] in past 30 days?: No Contact w/someone who lives/traveled outside [place] past 30 days?: No Exposure to someone with infectious disease in past 14 days?: No Do you have a fever (greater than 100.4 F or 38 C)?: No Have you tested positive for COVID-19?: No Exposed to someone with COVID-19 in past 14 days?: No Do you have a sore throat?: No Do you have a cough?: No Do you have any weakness?: No Do you have any diarrhea?: No Are you experiencing any unusual bleeding?: No Do you have any muscle aches/pain?: No Do you have any abdominal pain?: No Are you experiencing loss of taste or smell?: No Other Medical History Have you received the Flu Vaccine for this season: No Have you received the Pneumonia Vaccine: No ROS Obtained: Yes All systems reviewed & no additional complaints except as documented Physical Exam General General appearance: alert, in no apparent distress and obese Head Head exam: atraumatic and normocephalic Eye Eye exam: Present normal appearance, PERRL and EOMI ENT ENT exam: Present normal oropharynx and normal external ear exam Neck Neck exam: Present normal inspection and full ROM Chest Chest inspection: Present normal inspection and symmetric chest wall rise; Absent tenderness Respiratory Respiratory exam: Present normal lung sounds bilaterally; Absent respiratory distress Cardiovascular Cardiovascular exam: Present regular rate and normal rhythm Abdominal Exam Abdominal exam: Present soft; Absent distention, tenderness or guarding Extremities Exam Extremities exam: Present normal inspection; Absent edema or joint swelling Back Exam Back exam: Present normal inspection; Absent tenderness Neurological Exam Neurological exam: Present alert and oriented X3; Absent motor sensory deficit Psychiatric Psychiatric exam: Present normal affect and normal mood Skin Skin exam: Present warm, dry and normal color Lymphatic Lymphatic Findings: no adenopathy Medical Decision Making Medical Records Medical records reviewed: Yes I reviewed the patient's medical records. Screening: Per USPSTF and CDC recommendations, given the prevalence of disease in our region, it is our hospital?s policy to screen for HIV and viral Hepatitis for all patients aged 18 and over and those with ongoing risk factors. Ronnie Inquiry Pt receiving controlled substance: No Ronnie was queried for this patient: No Vital Signs: 12/05/24 00:22 12/05/24 00:22 12/05/24 00:31 Temperature 98.0 F Temperature Source Oral Pulse Rate 85 76 Pulse Rate [Apical] 86 Respiratory Rate 16 21 Blood Pressure 159/84 H Blood Pressure [Right Arm] 171/92 H Blood Pressure Mean [Right Arm] 118 Blood Pressure Source [Right Arm] Automatic Cuff Blood Pressure Position [Right Arm] Sitting 02 Sat by Pulse Oximetry 94 L 96 Oxygen Delivery Method Room Air 12/05/24 00:41 12/05/24 01:00 12/05/24 01:03 Temperature Temperature Source Pulse Rate 84 67 66 Pulse Rate [Apical] Respiratory Rate 19 23 22 Blood Pressure 153/83 H 161/70 H 153/71 H Blood Pressure [Right Arm] Blood Pressure Mean [Right Arm] Blood Pressure Source [Right Arm] Blood Pressure Position [Right Arm] 02 Sat by Pulse Oximetry 93 L 90 L 91 L Oxygen Delivery Method 12/05/24 01:30 Temperature Temperature Source Pulse Rate 67 Pulse Rate [Apical] Respiratory Rate 22 Blood Pressure 149/66 H Blood Pressure [Right Arm] Blood Pressure Mean [Right Arm] Blood Pressure Source [Right Arm] Blood Pressure Position [Right Arm] 02 Sat by Pulse Oximetry 90 L Oxygen Delivery Method Lab Data Lab results reviewed: Yes I reviewed the patient's lab results. Lab Results 12/05/24 00:10: WBC 10.0, RBC 4.50, Hgb 14.7, Hct 44.5, MCV 98.9, MCH 32.7 H, MCHC 33.0, RDW 13.1, Plt Count 251, MPV 10.4, Neut % (Auto) 52.3, Lymph % (Auto) 38.7, [place] % (Auto) 7.2, Eos % (Auto) 1.0, Baso % (Auto) 0.7, Neut # (Auto) 5.2, Lymph # (Auto) 3.9, [place] # (Auto) 0.7, Eos # (Auto) 0.1, Baso # (Auto) 0.1, D- Dimer 0.42, Sodium 141, Potassium 3.6, Chloride 104, Carbon Dioxide 33 H, Anion Gap 7.6, BUN 17, Creatinine 0.80, Estimated Creat Clear 76, Estimated GFR 73, Est GFR ( Amer) 88, Glucose 107 H, Calcium 10.0, Magnesium 1.9, Total Bilirubin 0.6, AST 21, ALT 13, Alkaline Phosphatase 76, Troponin I < 0.01, Total Protein 7.7, Albumin 4.4, Globulin 3.3 H, Albumin/Globulin Ratio 1.3, Lipase 51, TSH 1.62, Thyroxine (T4) 8.1 12/05/24 00:10 12/05/24 00:10 Orders (Tests/Meds): ED MEDICATIONS Discontinued Medications Generic Name Dose Route Start Last Admin Trade Name Freq PRN Reason Stop Dose Admin Acetaminophen 1,000 mg 12/05/24 00:27 12/05/24 00:34 Acetaminophen 500mg Tab PO 12/05/24 00:28 1,000 mg ONCE ONE Administration Aspirin 324 mg 12/05/24 00:27 12/05/24 00:34 Aspirin 81mg Chewable Tablet PO 12/05/24 00:28 324 mg ONCE ONE Administration Belladonna Alkaloids 60 ml 12/05/24 00:28 12/05/24 00:35 Belladonna Alkaloids 60 Ml Ml PO 12/05/24 00:29 60 ml ONCE ONE Administration Sodium Chloride 1,000 mls @ 999 mls/hr 12/05/24 00:30 12/05/24 00:35 Sod Chlor 0.9% 1000ml Bag IV 12/05/24 01:30 999 mls/hr .Q1H1M MIKAELA Administration Ondansetron HCl 4 mg 12/05/24 00:27 12/05/24 00:35 Ondansetron 4mg/2ml Vial IV 12/05/24 00:28 4 mg ONCE ONE Administration ORDERS Category Date Time Status CXR --portable [XR chest portable] Stat Exams 12/05/24 00:27 Completed CBC w/Auto Diff [Complete Blood Count Auto Diff] Stat Lab 12/05/24 00:10 Completed CMP [Comprehensive Metabolic Panel] Stat Lab 12/05/24 00:10 Completed D-Dimer Stat Lab 12/05/24 00:10 Completed Lipase Stat Lab 12/05/24 00:10 Completed Magnesium Stat Lab 12/05/24 00:10 Completed T4 (Thyroxine) Stat Lab 12/05/24 00:10 Completed TSH [Thyroid Stimulating Hormone] Stat Lab 12/05/24 00:10 Completed Troponin I Q3H Lab 12/05/24 00:10 Completed Troponin I Q3H Lab 12/05/24 04:45 Ordered UA [Urinalysis and Microscopic] Stat Lab 12/05/24 00:27 Ordered ECG Data Tracing #1: I reviewed this ECG and interpreted as documented below: Sinus rhythm, rate of 85, subtle ST segment scooping noted in the inferior leads, but it is the same as her prior EKG. No ST elevation. ECG initial impression date: 12/05/24 ECG initial impression time: 00:13 HEART Score History (anamnesis): Moderately suspicious ECG: Normal Age: 45-65 years Risk factors: Atherosclerosis history Troponin: </= normal limit HEART Score: 4 Medical Decision Narrative: 59-year-old female presents for chest pain today. She also felt hot and sweaty and a little lightheaded earlier, but it was very hot outside and in her house today. History was obtained via interactive discussion with patient, chart review. On arrival, patient is [afebrile, hemodynamically stable, satting appropriately, alert, oriented x4, GCS 15], moving all extremities spontaneously. Full physical exam performed and significant for no abdominal tenderness, clear lungs bilateral Differential includes but is not limited to ACS, PE, musculoskeletal chest pain, GERD, reflux, pancreatitis,. Patient was given aspirin, Tylenol, Zofran and GI cocktail for symptomatic management and correction of underlying abnormalities. Workup initiated including CBC CMP troponin D-dimer TSH T4 mag EKG chest x-ray. On re-evaluation, patient [remains afebrile, HD stable.] Laboratory workup independently interpreted by me and significant for negative D-dimer, negative troponin, no significant electrolyte derangement, no leukocytosis. Imaging independently interpreted by me and significant for clear lungs bilaterally. See radiology read for full review of final results. EKG independently interpreted by me and significant for normal sinus rhythm, stable appearance from prior.. On reassessment patient reports that she is feeling better and wants to go home. I had an extensive discussion with her regarding the importance of waiting for the second troponin to more fully rule out RI and to help guide disposition. Patient reports that she understands this but would like to leave regardless. Patient was discharged AMA in stable condition. Return precautions given. Procedures Risk/Benefits of Procedure(s) Were Explained: Yes Critical Care Critical Care Time Critical Care Time: No
--- NOTE | 2024-12-05 00:27 | ECG_ITS ---
APPROVED REPORT Exam: Resting ECG HR:85 bpm ECG Measurements Heart Rate 85 AXES DE 137 P 61 QRSd 78 QRS 50 QT 336 T 61 QTc 378 Conclusion SINUS RHYTHM MINIMAL ST DEPRESSION [0.025+ mV ST DEPRESSION] BORDERLINE ECG UNCONFIRMED REPORT Electronically signed by : SAKINA FLORES, 12/05/2024 02:39:32
--- NOTE | 2024-12-05 00:27 | XR_ITS ---
PROCEDURE INFORMATION: Exam: XR Chest Exam date and time: 12/05/2024 12:36 AM Age: 59 years old Clinical indication: Cough; Additional info: Cp, cough TECHNIQUE: Imaging protocol: Radiologic exam of the chest. Views: 1 view. COMPARISON: CT LUNG SCREENING 07/10/2023 1:55 PM FINDINGS: Lungs: No consolidation. Stable lingular nodule. Pleural spaces: No pleural effusion. No pneumothorax. Heart/Mediastinum: No cardiomegaly. Bones/joints: Unremarkable. IMPRESSION: No acute findings.
--- OUTSIDE RECORDS SUMMARY | 2024-12-05 00:30 | XMS_ITS | Clinical Summary ---
Author Organization [email or web address] [facility] Address [address] [place] [phone] Phone Care Team Providers Care Gas Controller Name Role Phone George Crouch MD Primary Care Physician [phone] [ ] Conditions or Problems Problem Name Problem Code Onset Date Status Entry Date Provider Comment Standard Description Annotate Low back pain 974852236 (SNOMED CT) 08/24 Active 08/24 George Crouch MD Low back pain COPD EXACERBATION J44.1 (ICD-10-CM ) Inactive George Crouch MD Chronic obstructive pulmonary disease with (acute) exacerbation Sinusitis, acute 63666663 (SNOMED CT) Inactive George Crouch MD Acute sinusitis Depression 24684205 (SNOMED CT) Active George Crouch MD Depressive disorder Asthma 554640013 (SNOMED CT) Active George Crouch MD Asthma NEVI, MULTIPLE 875389472 (SNOMED CT) 01/25 Active 01/25 George Crouch MD Skin - benign mole and nevus 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 45234982 (SNOMED CT) 11/22 Inactive 11/22 George Crouch MD Gynecologic examination VAGINITIS NOS 32463411 (SNOMED CT) 11/22 Inactive 11/22 George Crouch MD Vaginitis CANDIDIASIS SKIN B37.2 (ICD-10-CM ) 10/27 Inactive 10/27 George Crouch MD Candidiasis of skin and nail MIGRAINE 43760550 (SNOMED CT) 10/27 Active 10/27 George Crouch MD Migraine GERD 761699310 (SNOMED CT) 10/12 Active 10/12 George Crouch MD Gastroesophagea l reflux disease PREOPERATIVE EXAMINATION 979128438 (SNOMED CT) 09/06 Resolved 09/06 George Crouch MD Preoperative procedures COPD EXACERBATION J44.1 (ICD-10-CM ) 07/27 Resolved 07/27 George Crouch MD Chronic obstructive pulmonary disease with (acute) exacerbation MENOPAUSE-RE LATED VASOMOTOR SYMPTOMS 450253059 (SNOMED CT) 10/12 Active 10/12 George Crouch MD Menopause symptoms present Question of RESTLESS LEG SYNDROME 24416608 (SNOMED CT) 10/12 Active 10/12 George Crouch MD Restless legs OBESITY NOS 422331722 (SNOMED CT) 10/12 Active 10/12 George Crouch MD Obesity BP HIGH NO HTN R03.0 (ICD-10-CM ) 10/12 Active 10/12 George Crouch MD Elevated blood-pressure reading, without diagnosis of hypertension COPD 60897787 (SNOMED CT) 09/21 Active 09/21 Angelia Goldberg POWER ELECTRONICS RESEARCH ENGINEER Chronic obstructive pulmonary disease ANXIETY DEPRESSION 982669230 (SNOMED CT) 09/21 Active 09/21 Angelia Goldberg POWER ELECTRONICS RESEARCH ENGINEER Mixed anxiety and depressive disorder ANKLE PAIN, CHRONIC 160170932 (SNOMED CT) 09/21 Active 09/21 Angelia Goldberg POWER ELECTRONICS RESEARCH ENGINEER Ankle pain PREOPERATIVE EXAMINATION 419262847 (SNOMED CT) 09/06 Removed 09/06 Geetha Tolbert MD Preoperative procedures HYPERLIPIDEM IA 15419898 (SNOMED CT) 07/27 Active 07/27 Geetha Tolbert MD Hyperlipidemia TOBACCO USE DIS F17.200 (ICD-10-CM ) 07/27 Active 07/27 Geehta Tolbert MD Nicotine dependence, unspecified, uncomplicated COPD EXACERBATION J44.1 (ICD-10-CM ) 07/27 Removed 07/27 Geetha Tolbert MD Chronic obstructive pulmonary disease with (acute) exacerbation Medications Medication Instructions Start Date Stop Date Generic Name NDC Provider NORTRIPTYLINE HCL 50 MG CAPS 1 CAP QHS NORTRIPTYLINE HCL 43227398269 George Crouch MD MELOXICAM 7.5 MG TABS 1 TAB DAILY WITH FOOD MELOXICAM 53787920507 George Crouch MD IMITREX 50 MG TABS 1 TAB PRN-MIGRAINES; MAY REPEAT Q2H PRN ; MAXIMUM = 4 CAPS / 24 HRS SUMATRIPTAN SUCCINATE 49401774512 George Crouch MD FLUOXETINE HCL 20 MG CAPS TAKE 1 CAPSULE BY MOUTH ONCE A DAY FLUOXETINE HCL 07353818567 George Crouch MD WELLBUTRIN SR 150 MG [id number] 1 TAB 2 TIMES / DAY BUPROPION HCL 02165517994 George Crouch MD IMITREX 50 MG TABS 1 TAB PRN-MIGRAINES; MAY REPEAT Q2H PRN ; MAXIMUM = 4 CAPS / 24 HRS SUMATRIPTAN SUCCINATE 35588331252 George Crouch MD MELOXICAM 7.5 MG TABS 1 TAB DAILY WITH FOOD MELOXICAM 79119464866 George Crouch MD FLUOXETINE HCL 20 MG CAPS TAKE 1 CAPSULE BY MOUTH ONCE A DAY FLUOXETINE HCL 48004760511 George Crouch MD CYCLOBENZAPRINE HCL 10 MG TABS 1 TAB Q12H PRN- CYCLOBENZAPRINE HCL 95860822816 Britt Sanchez LPN MELOXICAM 7.5 MG TABS 1 TAB DAILY WITH FOOD MELOXICAM 39371197464 Britt Sanchez LPN FLUOXETINE HCL 20 MG CAPS TAKE 1 CAPSULE BY MOUTH ONCE A DAY FLUOXETINE HCL 34783133729 George Crouch MD WELLBUTRIN SR 150 MG [id number] 1 TAB DAILY X 3 DAYS; THEN 1 TAB 2 TIMES / DAY BUPROPION HCL 77829369001 George Crouch MD CYCLOBENZAPRINE HCL 10 MG TABS 1 TAB Q12H PRN- CYCLOBENZAPRINE HCL 38457825753 George Crouch MD MELOXICAM 7.5 MG TABS 1 TAB DAILY WITH FOOD MELOXICAM 60571717562 George Crouch MD IMITREX 50 MG TABS 1 TAB PRN-MIGRAINES; MAY REPEAT Q2H PRN ; MAXIMUM = 4 CAPS / 24 HRS SUMATRIPTAN SUCCINATE 72534294086 George Crouch MD FLUOXETINE HCL 20 MG CAPS TAKE 1 CAPSULE BY MOUTH ONCE A DAY FLUOXETINE HCL 12394059861 George Crouch MD CLOTRIMAZOLE AF 1 % CREA APPLY DIRECTED 2 TIMES / DAY CLOTRIMAZOLE 24628822237 George Crouch MD SPIRIVA HANDIHALER 18 MCG CAPS USE 1 INHALATION ONCE A DAY TIOTROPIUM BROMIDE MONOHYDRATE 93403138882 George Crouch MD VENTOLIN HFA 108 (90 Base) MCG/ACT AERS TAKE 2 INHALATIONS 4 TIMES A DAY NEEDED FOR WHEEZING ALBUTEROL SULFATE 70422481571 George Crouch MD ESTRADIOL 0.075 MG/24HR PTTW APPLY 1 PATCH WKLY ESTRADIOL 84436645322 George Crouch MD PROMETRIUM 200 MG CAPS 1 CAP QHS PROGESTERONE MICRONIZED 86799302506 George Crouch MD AUGMENTIN 875-125 MG ORAL TABLET Take 1 tablet by mouth twice a day 0 08/24 AMOXICILLIN-POT CLAVULANATE 10307547591 George Crouch MD PREDNISONE 20 MG TABS 1 TAB 3 TIMES/DAY X 2D; THEN 1 TAB 2 TIMES/DAY X 2D; THEN 1 TAB DAILY X 2D 0 08/24 PREDNISONE 39697529747 George Crouch MD WELLBUTRIN SR 150 MG [id number] 1 TAB DAILY X 3 DAYS; THEN 1 TAB 2 TIMES / DAY BUPROPION HCL 73680628395 George Crouch MD PREDNISONE 20 MG TABS 1 TAB 3 TIMES/DAY X 2D; THEN 1 TAB 2 TIMES/DAY X 2D; THEN 1 TAB DAILY X 2D PREDNISONE 80544933431 George Crouch MD AUGMENTIN 875-125 MG ORAL TABLET Take 1 tablet by mouth twice a day AMOXICILLIN-POT CLAVULANATE 13925428813 George Crouch MD ESTRADIOL 0.05 MG/24HR PTWK 1 PATCH / WK ESTRADIOL 55729942631 George Crouch MD IMITREX 50 MG TABS 1 TAB PRN-MIGRAINES; MAY REPEAT Q2H PRN ; MAXIMUM = 4 CAPS / 24 HRS SUMATRIPTAN SUCCINATE 44337314303 George Crouch MD NORTRIPTYLINE HCL 50 MG CAPS 1 CAP QHS NORTRIPTYLINE HCL 60296068125 George Crouch MD FLUOXETINE HCL 20 MG CAPS TAKE 1 CAPSULE BY MOUTH ONCE A DAY FLUOXETINE HCL 87429583720 George Crouch MD OMEPRAZOLE 20 MG TBEC 1 TAB 2 TIMES / DAY OMEPRAZOLE 35015201977 George Crouch MD ESTRADIOL 0.05 MG/24HR PTWK 1 PATCH / WK ESTRADIOL 97034888911 George Crouch MD PROMETRIUM 100 MG CAPS 1 CAP QHS PROGESTERONE MICRONIZED 53787643466 George Crouch MD ESTRADIOL 0.025 MG/24HR PTWK 1 PATCH WKLY ESTRADIOL 67261738084 George Crouch MD METRONIDAZOLE 500 MG TABS 1 TAB 2 TIMES DAILY 20140 11/29 METRONIDAZOLE 15544186146 George Crouch MD IMITREX 50 MG TABS 1 TAB PRN-MIGRAINES; MAY REPEAT Q2H PRN ; MAXIMUM = 4 CAPS / 24 HRS SUMATRIPTAN SUCCINATE 68221143925 George Crouch MD CLOTRIMAZOLE AF 1 % CREA APPLY DIRECTED 2 TIMES / DAY CLOTRIMAZOLE 50958331927 George Crouch MD NORTRIPTYLINE HCL 50 MG CAPS 1 CAP QHS NORTRIPTYLINE HCL 26284760081 George Crouch MD VITAMIN D3 125 MCG (5000 UT) CAPS Take 1 capsule by mouth daily CHOLECALCIFEROL 29890533261 George Crouch MD RANITIDINE HCL 150 MG ORAL TABLET 1 TAB QAM & 1 QHS RANITIDINE HCL 94523854094 George Crouch MD VENTOLIN HFA 108 (90 Base) MCG/ACT AERS TAKE 2 INHALATIONS 4 TIMES A DAY NEEDED FOR WHEEZING ALBUTEROL SULFATE 07577219522 George Crouch MD SPIRIVA HANDIHALER 18 MCG CAPS USE 1 INHALATION ONCE A DAY TIOTROPIUM BROMIDE MONOHYDRATE 24220515719 George Crouch MD FLUOXETINE HCL 20 MG CAPS TAKE 1 CAPSULE BY MOUTH ONCE A DAY FLUOXETINE HCL 49313972499 George Crouch MD LOVASTATIN 10 MG TABS TAKE 1 TABLET BY MOUTH EVERY NIGHT AT BEDTIME 09/21 LOVASTATIN 06521318460 Angelia Goldberg POWER ELECTRONICS RESEARCH ENGINEER PROAIR HFA 108 (90 Base) MCG/ACT INHALATION AEROSOL SOLUTION 2PUFFS Q 4HRS PRN 09/21 ALBUTEROL SULFATE 79680915140 Angelia Goldberg POWER ELECTRONICS RESEARCH ENGINEER AMOXICILLIN 500 MG CAPS 1po bid 09/21 AMOXICILLIN 98268658545 Angelia Goldberg POWER ELECTRONICS RESEARCH ENGINEER NORTRIPTYLINE HCL 25 MG CAPS take one capsule by mouth every evening NORTRIPTYLINE HCL 34334085711 George Crouch MD PROAIR HFA 108 (90 Base) MCG/ACT INHALATION AEROSOL SOLUTION 2PUFFS Q 4HRS PRN ALBUTEROL SULFATE 69253331315 Geetha Tolbert MD LOVASTATIN 10 MG TABS TAKE 1 TABLET BY MOUTH EVERY NIGHT AT BEDTIME LOVASTATIN 48817561721 Geetha Tolbert MD PROAIR HFA 108 (90 Base) MCG/ACT INHALATION AEROSOL SOLUTION ALBUTEROL SULFATE 14174387021 Geetha Tolbert MD AMOXICILLIN 500 MG CAPS 1po bid AMOXICILLIN 97379241329 Geetha Tolbert MD Medications Administered No information available. Allergies, Adverse Reactions, Alerts Allergy Name Reaction Description Start Date Severity Statu s Provider MORPHINE Critical Active Geetha diallo MD [id number] Critical No Longer Active Geetha Tolbert MD Results Date Name Value Unit Range Flag Description Lab Report: CBC (INCLUDES DI FF/PLT), COMPREHENSIVE METABOLIC PANEL W/eGF ... HDLPLASMA 72 mg/dL >OR = 46 N Cholestero l in HDL [Mass/volume] in Serum or Plasma - mg/dL LDLPLASMA 98 mg/dL <130 N Cholesterol in LDL [Mass/volume] in Serum or Plasma - mg/dL Lab Report: CBC (H/H, RBC, I NDICES, WBC, PLT), COMPREHENSIVE METABOLIC P ... B12 403 pg/mL 200-1100 N Cobalamin (V itamin B12) [Mass/volume] in Serum or Plasma TSHREFLX FT4 1.60 m[iU]/L N TSH (thy roid stimulating hormone) with reflex FT4 VIT D 25-OH 10 ng/mL 30-100 L 25-Hydrox ycalcifero l [Mass/volume] in Serum or Plasma HGBA1C 5.8 % OF TOTAL HGB % <5.7 H Hemoglobin A1c/Hemoglobin, total in Blood - % Lab Report: LIPID PANEL WITH REFLEX TO DIRECT LDL TRIGLYCRDES 152 mg/dL <150 H Triglycer margarito [Mass/volume] in Serum or Plasma - mg/dL Lab Report: CBC (H/H, RBC, I NDICES, WBC, PLT), COMPREHENSIVE METABOLIC P ... BG RANDOM 93 mg/dL 65-99 N Glucose [Mass/volume] in Blood Lab Report: LIPID PANEL WITH REFLEX TO DIRECT LDL, LIPID PANEL WITH REFL ... TSH 1.31 u[iU]/mL N Thyrotropin [Units/volume] in Serum or Plasma BASO % MANU 0.6 % N basophils as percent of blood leukocytes, manual count EOS % MANU 1.1 % N eosinophil s as percent of blood leukocytes, manual count MONOCYTE % 7.1 % N Monocytes/ 100 leukocytes in Blood by Automated count LYMPH% P BLD 36.5 % N lymphocy fredy as percent of blood leukocytes PMN % 54.7 % N Neutrophils/1 00 leukocytes in Blood by Automated count ABS BASOS 53 {Cells}/ uL 0-200 N Basophils [#/volume] in Blood ABS EOS 98 {Cells}/ uL 15-500 N Eosinophils [#/volume] in Blood ABS MONOS 632 {Cells}/ uL 200-950 N Monocytes [#/volume] in Blood ABSLYMPHCT 3249 {Cells}/ uL 850-3900 N Lymphocytes [#/volume] in Blood ABS NEUTROPH 4868 CELLS/UL 10*3/uL 4066-3631 N Neutrophils [#/volume] in Blood MPV 9.2 fL 7.5-11.5 N Platelet cathleen n volume [Entitic volume] in Blood by Wyatt PLATELETK/UL 224 THOUSAND/UL 10*3/uL 140-400 N platelet count RDW 14.5 % 11.0-15.0 N Erythrocyte distribution width [Ratio] by Automated count OL-MCHC 32.5 g/dL 32.0-36.0 N mean corpus cular hemoglobin concentration, rbc MCH 31.9 pg 27.0-33.0 N MCH [Entiti c mass] by Automated count MCV 98.2 fL 80.0-100. 0 N MCV [Entitic volume] by Automated count HCT 46.2 % 35.0-45.0 H Hematocrit [Volume Fraction] of Blood by Automated count HGB 15.0 g/dL 11.7-15.5 N Hemoglobin [Mass/volume] in Blood RBC M/UL 4.71 MILLION/UL 10*6/uL 3.80-5.10 N red blood count WBC CT BLOOD 8.9 10*3/uL 3.8-10.8 N leukocy te count, blood SGPT (ALT) 13 U/L 6-29 N Alanine aminotransferase [Enzymatic activity/volume] in Serum or Plasma SGOT (AST) 13 U/L 10-35 N Aspartate aminotransferase [Enzymatic activity/volume] in Serum or Plasma ALK PHOS 73 U/L 33-130 N Alkaline phosphatase [Enzymatic activity/volume] in Blood BILI TOTAL 0.4 mg/dL 0.2-1.2 N Bilirubin. total [Mass/volume] in Serum or Plasma A/G RATIO 1.9 (calc) 1.0-2.5 N Albumin/ Globulin [Mass Ratio] in Serum or Plasma GLOBULIN TOT 2.4 G/DL (CALC) g/dL 1.9-3.7 N Globulin [Mass/volume] in Serum ALBUMIN EOP 4.5 g/dL 3.6-5.1 N Albumin [Mass/volume] in Serum or Plasma by Electrophoresis PROTEIN, TOT 6.9 g/dL 6.1-8.1 N Protein [Mass/volume] in Serum or Plasma CALCIUM 9.5 mg/dL 8.6-10.4 N Calcium [Moles/volume] in Serum or Plasma CO2 31 mmol/L 19-30 H Carbon dioxid e, total [Moles/volume] in Venous blood CHLORIDE BLD 102 mmol/L 98-110 N chloride , blood POTASSIUM 4.1 mmol/L 3.5-5.3 N Potassium [Moles/volume] in Serum or Plasma SODIUM 141 mmol/L 135-146 N Sodium [Moles/volume] in Serum or Plasma BUN/CREAT NOT APPLICABLE (calc) 6-22 Urea nitrogen/Creatinine [Mass Ratio] in Serum or Plasma EGFR IF AFA 121 mL/min/1 .73m2 >OR = 60 N Glomerular filtration rate/1.73 sq M.predicted among blacks [Volume Rate/Area] in Serum, Plasma or Blood by Creatinine-based formula (MDRD) EGFR 105 mL/min/1 .73m2 >OR = 60 N Glomerular filtration rate/1.73 sq M.predicted [Volume Rate/Area] in Serum, Plasma or Blood by Creatinine-based formula (MDRD) CREATININE 0.60 mg/dL 0.50-1.05 N Creatini ne [Mass/volume] in Serum or Plasma BUN 12 mg/dL 7-25 N Urea nitrogen [Mass/volume] in Serum or Plasma GLUCOSE SER 84 mg/dL 65-99 N Glucose [Mass/volume] in Serum or Plasma NON-HDL CHOL 132 MG/DL (CALC) mg/dL N cholesterol, non-HDL, total CHOL/HDL % 3.2 (calc) < OR = 5.0 N cholesterol/HDL ratio, serum, percent LDL 96 MG/DL (CALC) mg/dL <130 N Cholesterol in L DL [Mass/volume] in Serum or Plasma - mg/dL TRIGLYC TOT 178 mg/dL <150 H Triglycer margarito [Mass/volume] in Serum or Plasma - mg/dL HDL 60 mg/dL >OR = 46 N Cholesterol in HDL [Mass/volume] in Serum or Plasma - mg/dL CHOLESTEROL 192 mg/dL 125-200 N Cholester ol [Mass/volume] in Serum or Plasma - mg/dL Plan of Care Type Date Detail Referral [facility] Gastroenterology [facility], [address], [place], [address] Referral Dermatology Refe Cookie Escalante, [address], [place], [address] Referral Dermatology Refe Cookie Escalante, [address], [place], [address] Referral excluded fr om report: Referral [facility] Referral [facility] Referral excluded fr om report: Referral Ophthamology Opt ometry Referral [facility] for Sight Sight, [facility] for, [address] [place] [address], [phone] Pending order Medication Recon ciliation Pending order CBC no diff Pending order CMP Pending order Lipid Panel Pending order TSH reflex to fr ee T4 Pending order Mammogram Pending order SNOMED-CT: 87779 3000 Smoking Cessation Counseling Pending order SNOMED-CT: 48860 0684457230 Current Medications Documented Pending order Mammogram Pending order Mammogram Pending Order exclud ed from report: Pending order CBC no diff Pending order CMP Pending order ThinPrep w HR HP V/GC/Chlamydia mRNA E6/E7 Pending order BV Yeast Trich C ulture (Affirm) Pending order Mammogram Pending order Lipid Panel Pending order Urine Dip Auto 8 1003 Pending order B12 Pending order CBC no diff Pending order CMP Pending order TSH reflex to fr ee T4 Pending order Vitamin D 25 Hyd bg Pending order HGBA1c Pending order CBC with diff (O utside Lab) Pending order CMP (Outside Lab ) Pending order Lipid Panel (Out side Lab) Pending order TSH reflex to fr ee T-4 (Outside Lab) Patient education Medications Procedures Code Procedure Name Date Entry Date [facility]-[id number] Medication Reconciliation [facility]-[id number] SNOMED-CT: 555490150 Smoking Cessation Counseling [facility]-[id number] OMED-CT: [id number] Current Medications Documented [facility] 1759 [place] [address] [facility] # CMP 3 31986 [facility] # Lipid Panel 3 89414 [facility] # TSH reflex to free T4 Mammo JUNIOR Mammogram GASTRO [facility] E [facility] Mammo JUNIOR Mammogram 34375 [facility] # CMP 1 [facility] 1759 CBC no diff DERM BRADY Dermatology Referral Gera Tania 2 CPT-41472 Pulse Ox for O2 Saturation; single 74138 PSYCH [facility] 03/28 OPHTH OPT [facility] Ophthamology Optomet ry Referral [facility] Mammo JUNIOR Mammogram [facility]# 78726 ThinPrep w HR HPV/GC/Chlamydia mRNA E6/E7 02001 [facility] # BV Yeast Trich Culture (Affirm) 201 09/19/08 75484 [facility] # Lipid Panel 4 CPT-57581 Urine Dip Auto 02662 927 [facility] # B12 [facility]# 1759 [place] [address] [facility] # CMP 9 12077 [facility] # TSH reflex to free T4 43726 [facility] # Vitamin D 25 Hydroxy 2 496 [facility] # HGBA1c CPT-02040 CBC with diff (Outside Lab) CPT-42386 CMP (Outside Lab) CPT-58831 Lipid Panel (Outside Lab) 20 04/17/11 CPT-49533 TSH reflex to free T-4 (Outside Lab) 2010 Vital Signs Date Name Value Unit Description BMI (Body Mass Index) 33.07 kg/m2 Bod y Mass Index (Ratio) Body Temperature 98.3 [degF] temperat ure E&M Body Temperature 36.83 Mily temperat ure in centigrade E&M BP Diastolic 78 mm[Hg] blood pressu re, diastolic BP Systolic 130 mm[Hg] blood pressur e, systolic BSA (Body Surface Area) 1.94 b joellen surface area Heart Rate 88 /min pulse rate Weight Measured 84.55 kg weight in kilograms E&M Weight Measured 186 [lb_av] weight E& M Weight Measured 186 [lb_av] weight E& M Height 160.02 cm height in cent imeters E&M Height 63 [in_us] height E&M Respiratory Rate 20 /min respirat ory rate E&M Immunizations Vaccine Administration Date Standard Description CVX Co de Dose Prevnar 13 Intramuscular Suspension PneumoPCV 133 Unknown Zostavax Subcutaneous Solution Reconstituted 74919 UNT/0.65ML ([facility] [address]-10) Zoster 121 Unknown Advance Directives No information available.
--- OUTSIDE RECORDS SUMMARY | 2024-12-05 00:31 | XMS_ITS | Clinical Summary ---
Author Organization Healthcare Address [address] [id number] Care Team Providers Care Bull Riveter Name Role Phone Monica Raymundo AGUSTIN Primary Care Provider [phone] Allergies Active Allergy Reactions Criticality Noted Date Comments Morphine Itching High 03/18/2010 Naproxen Itching,Swelling High 03/19/2017 Penicillins Swelling High 12/23/2023 Medications sodium chloride 0.9 % nebulizer solution 82 mL with albuterol (5 MG/ML) 0.5% nebulizer solution 90 mg 1 puff EVERY 4 HOURS (route: inhalation) 06/16/2023 Active lisinopril 5 MG tablet Take 1 tablet (5 mg) by mouth 1 (one) time each day. 06/16/2023 Active ASPIRIN 81 MG chewable tablet Chew 1 tablet (81 mg) 1 (one) time each day. 12/27/2023 Active traZODone (Desyrel) 50 MG tablet Take 1 tablet (50 mg) by mouth 1 (one) time each day. 03/18/2024 Active omeprazole (PriLOSEC) [address] capsule Take 1 capsule (40 mg) by mouth 1 (one) time each day. 03/31/2024 Active cyclobenzaprine (Flexeril) 10 MG tablet Take 1 tablet (10 mg) by mouth 3 (three) times a day if needed for muscle spasms. 02/04/2024 Active clopidogrel (Plavix) 75 MG tablet Take 1 tablet (75 mg) by mouth 1 (one) time each day. Active atorvastatin (Lipitor) 80 MG tablet Take 1 tablet (80 mg) by mouth every night. Active amLODIPine (Norvasc) 5 MG tablet Take 1 tablet (5 mg) by mouth 1 (one) time each day. Active FLUoxetine (PROzac) 20 MG tablet Take 1 tablet (20 mg) by mouth 2 (two) times a day. 03/31/2024 Active buPROPion SR (Wellbutrin SR) 150 MG 12 hr tablet Take 1 tablet (150 mg) by mouth 2 (two) times a day. 03/31/2024 Active ascorbic acid (vitamin C) 100 MG tablet Take 1 tablet (100 mg) by mouth 1 (one) time each day. 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 Nuclear sclerotic cataract of both eyes 04/06/20 24 Dry eyes, bilateral 04/06/2024 Profound, moderate or severe vision impairment 1 Occipital infarction 04/06/2024 Family History Medical History Relation Name Comments Diabetes Maternal Grandmother Hypertension Maternal Grandmother Diabetes Mother Hypertension Mother Relation Name Status Comments Maternal Grandmother Mother Social History Tobacco Use Types Packs/Day Years Used Date Smoking Tobacco: Every Day Cigarettes 0.5 47.5 Started: 1977 Tobacco Cessation:Ready to Q uit: Not Asked; Counseling Given: Not Answered Comments Unknown Sex and Gender Information Value Date Recorded Sex Assigned at Not on file Legal Sex Female 7:47 PM EDT Gender Identity Not on file Sexual Orientation Not on file Plan of Treatment Health Maintenance Due Date Last Done Comments [facility]-Depression Screening 1963 [facility]-HIV Screening 1963 [facility]-Hepatitis C Screening 1963 [facility]-/Child/Adol SDOH Screenings 1963 [id number] Vaccine (#1) 1968 [facility]- SDOH Screenings 1981 [facility]-Adult SDOH Screenings 1981 [facility]-DTaP,Tdap,and Td Vaccines (1 - Tdap) 1982 [facility]-Pap Smear 1984 [facility]-Cervical Cancer Screening 1993 [facility]-HPV/Cotest 1993 CT Colonography 2008 Colonoscopy 2008 FIT-DNA 2008 FIT 2008 FOBT 2008 Sigmoidoscopy 2008 [facility]-Colorectal Cancer Screening 2008 [facility]-Lung Cancer Screening 2013 [facility]-Zoster Vaccines (2 of 3) 06/08/2015 04/13/2015 [facility]-Medicare Annual Wellness (AWV) 01/29/2019 01/29/2018 [facility]-Breast Cancer Screening 09/02/201908/14, 09/01/2017, 10/23/2015, Additional history exists [facility]-Pneumococcal Vaccine: 50+ Years (3 of 3 - PCV20 or PCV21) 03/20/2022 03/20/2017, 04/13/2015 [facility]-RSV Vaccine: 60+ Years or (1 - Risk 60-74 years 1-dose series) 2023 [facility]-Influenza Vaccine (Season Ended) 2025 06/24/2023, 03/20/2017 HPV Vaccines Aged Out No longer eligi ble based on patient's age to complete this topic [facility]-HIB Vaccines Aged Out No longer e ligible based on patient's age to complete this topic [facility]-Hepatitis A Vaccines Aged Out No longer eligible based on patient's age to complete this topic [facility]-IPV Vaccines Aged Out No longer e ligible based on patient's age to complete this topic [facility]-Rotavirus Vaccines Aged Out No lo nger eligible based on patient's age to complete this topic Insurance MEDICARE Care Teams Bull Riveter Relationship Specialty Start Date End Date Monica Raymundo APRN [address] [id number] PCP - General 04/06/24
--- OUTSIDE RECORDS SUMMARY | 2024-12-05 00:31 | XMS_ITS | Clinical Summary ---
Author Organization Daniela BILLINGSDavis OD Address [address] [place] [address] Phone Care Team Providers Care Tour Counselor Name Role Phone Zahra Doan MD Primary Care Provider [phone] Allergies Active Allergy Reactions Criticality Noted Date Comments Naproxen Sodium Itching 03/19/2017 Morphine Itching 03/18/2010 Medications * This document contains information received from the source organization and may not represent a complete record from that organization. Nebulizers (VIXONE NEBULIZER-[facility]) [facility] Use daily with nebulizer 1 Each 8 Active Nebulizer Accessories [facility] Child size mask 1 Each 8 Active albuterol (PROVENTIL HFA;VENTOLIN HFA) 90 mcg/actuation Inhl HFA Aerosol InhalerIndicatio ns:COPD, moderate (HCC) Inhale 2 Puffs into the lungs every 6 hours as needed for Wheezing. 1 Inhaler 2 8 Active progesterone (PROMETRIUM) 100 mg Oral Capsule Take 1 Cap by mouth daily. 30 Cap 2 8 Active mometasone-formo terol (DULERA) 100-5 mcg/actuation Inhl HFA Aerosol Inhaler Inhale 2 Puffs into the lungs 2 times daily. 3 Inhaler 2 8 Active rOPINIRole (REQUIP) 0.5 mg Oral Tablet Take 1 Tab by mouth nightly. 90 Tab 8 Active nortriptyline (PAMELOR) 25 mg Oral Capsule Take 1 Cap by mouth nightly. 90 Cap 8 Active oxybutynin (DITROPAN-XL) 10 mg Oral Tablet Extended Rel 24 hr Take 1 Tab by mouth daily. 90 Tab 2 8 Active Active Problems Problem Noted Date Diagnosed Date Chest pain 03/06/2018 Hyperglycemia 03/06/2018 COPD exacerbation 03/19/2017 Post-tussive vomiting 03/19/2017 Acute nonintractable headache 03/19/2017 Tobacco abuse 03/19/2017 Obesity 03/19/2017 Acute respiratory failure with hypoxia and hyper capnia 03/19/2017 SOB (shortness of breath) Resolved Problems Problem Noted Date Diagnosed Date Resolved Date Acute bronchitis 03/19/2017 04/11/2017 Immunizations Immunization Administration Dates Next Due Influenza Vaccine Quadrivalent PF 03/20/2017 Pneumococcal Polysaccharide 23 Valent 03/20/2017 Surgical History Surgery Date Site/Laterality Comments FRACTURE SURGERY left ankle COLONOSCOPY 02/22/2016 N/A ESOPHAGOGASTRODUODENOSCOPY with biopsy COLONOSCOPY with hot snare polypectomy, polypectomy with biopsy forceps, submucosal injection of saline, placement of clip ; Surgeon: Patsy Mortensen MD; Location: [facility]; Service: Endoscopy UPPER GASTROINTESTINAL ENDOSCOPY 02/22/2016 N/A Surgeon: Patsy Mortensen MD; Location: [facility]; Service: Endoscopy Medical History Medical History Date Comments Asthma Bronchitis Chronic ankle pain 10-12-2014 Pt states she has had lots of surgeries and is applying for disability because her left ankle always hurts COPD (chronic obstructive pu lmonary disease) (HCC) Family History Medical History Relation Name Comments Arthritis Mother Diabetes Mother High Blood Pressure Mother High Cholesterol Mother Cirrhosis Neg Hx Colon Cancer Neg Hx Colon Polyps Neg Hx Crohn's Disease Neg Hx Liver Disease Neg Hx Relation Name Status Comments Mother Social History Tobacco Use Types Packs/Day Years Used Date Smoking Tobacco: Former Cigarettes 0.5 42 1 07/20/1974 - 03/19/2017 Smokeless Tobacco: Never Tobacco Cessation:Counseling Given: No Alcohol Use Standard Drinks/Week Comments No 0 (1 standard drink = 0.6 oz pur e alcohol) Comments No Sex and Gender Information Value Date Recorded Sex Assigned at Not on file Legal Sex Female 10:39 PM EDT Gender Identity Not on file Sexual Orientation Not on file Obstetrics History Last Filed Vital Signs Vital Sign Reading Time Taken Comments Blood Pressure 132/84 04/17/2018 10:17 AM EDT Pulse 84 04/17/2018 10:17 AM EDT Temperature 36.6 C (97.9 F) 01/29/2018 11:13 AM EDT Respiratory Rate 18 03/21/2017 7:57 AM EDT Oxygen Saturation 99% 01/29/2018 11: 13 AM EDT on 2l of o2 Inhaled Oxygen Concentration - - Weight 84.8 kg (186 lb 14.4 oz) 04/17/2018 10:17 AM EDT Height 157.5 cm (5' 2 ) 04/17/2018 10:1 7 AM EDT Body Mass Index 34.18 04/17/2018 10:17 AM EDT Plan of Treatment Health Maintenance Due Date Last Done Comments Annual Wellness Exam 1966 Hepatitis C Screening 1981 DTaP/TDaP/Td (1 - Tdap) 1982 Cervical Cancer Screening 1984 Pap Smear 1984 HPV/Pap Cotest 1993 Cologuard 2008 FIT 2008 Sigmoidoscopy 2008 Virtual Colonography 2008 Low Dose Lung Cancer Screening 2013 Zoster (2 of 3) 06/08/2015 04/13/2015 Colon Cancer Screening 02/21/2019 Colonoscopy 02/21/2019 02/22/2016 Breast Cancer Screening 09/02/2019 09/02/19 18, 10/23/2015, 11/24/2013 Pneumococcal Vaccine 50+ (3 of 3 - PCV20 or PCV21) 03/20/2022 03/20/2017, 04/13/2015 RSV or 60+ (1 - Ris k 60-74 years 1-dose series) 2023 COVID-19 Vaccine ( - 2023-2 5 season) 2024 Influenza Vaccine (Season Ended) 2025 03/20/2017 Hepatitis B Vaccine Aged Out No longe r eligible based on patient's age to complete this topic Meningococcal B Vaccine Aged Out No l onger eligible based on patient's age to complete this topic Goals Goal Patient Goal Type Associated Problems Recent Progress Patient-Stated? Author Maintain a healthy diet, exercise regularly and maintain an ideal body weight General No Ilana Rocha RMA Stay Tobacco Free Lifestyle No Ilana Rocha RMA Procedures Procedure Name Priority Date/Time Associated Diagnosis Comments MM MAMMO DIGITAL ADRIANNA SCREEN BILAT Routine 09/01/2017 12:15 PM EDT Visit for screening mammogram [facility]GD-COLONOSCOPY Routine 02/22/2016 8:45 AM EDT from Last 3 Months or Most Recently Relevant to Health Maintenance Results * MM MAMMO DIGITAL ADRIANNA SCREEN BILAT (09/01/2017 12:15 PM EDT) Anatomical Region Laterality Modality Breast Bilateral Mammography 09/01/2017 3:37 PM EDT Impressions 09/02/2017 6:09 AM EDT : Negative ([id number]) ~ RECOMMENDATION: Routine screening mammogram in 1 year. ~ DISCLAIMER * Any patient with a palpable abnormality, unexplained by breast imaging, should be managed on clinical basis by the attending physician. * Breast imaging has a false negative rate of 15%. * The patient was notified by mail of the results of this examination. *The patient's information was entered into a reminder system with a target due date for the next mammogram. Narrative 09/02/2017 6:09 AM EDT Procedure:MM MAMMO DIGITAL ADRIANNA SCREEN BILAT ~ Reason for exam: screening, asymptomatic. ~ MM MAMMO DIGITAL ADRIANNA SCREEN BILAT Bilateral CC and MLO view(s) were taken. Prior study comparison: October 23, 2015, bilateral MM MAMMO DIG SCREEN CAD BILAT performed at [facility]. The breast tissue is heterogeneously dense. This may lower the sensitivity of mammography. No suspicious calcifications. Compared to the most recent studies of 10-23-15. ~ Morgan Aliza DO IMG MAMMOGRAPHY ORDERABLES Faby l Result * [facility] EGD-COLONOSCOPY (02/22/2016 8:45 AM EDT) 02/22/2016 8:45 AM EDT Impressions [facility] - 02/22/2016 9:41 AM EDT Plan: Colonoscopy in 3-5 years depending on pathology results. This section is an excerpt of the full report. us Patsy Mortensen MD GI PROCEDURE ORDERABLES Final R esult [facility] [address] [place] [address] from Last 3 Months or Most Recently Relevant to Health Maintenance Insurance MEDICARE [place] PART A AND B GENERIC WORKERS' COMP GENERIC WORKERS' COMP MEDICARE [place] PART A AND B Advance Directives For more information, please contact: [phone] * Full Code (Latest Code Status on File) Date Activated Date Inactivated Comments 03/19/2017 8:17 PM 03/21/2017 5:59 PM Care Teams Tour Counselor Relationship Specialty Start Date End Date Zahra Doan MD [address] [place] [id number] PCP - General Family Medicine 04/21/19
[2024-12-05] MEDS: ASPIRIN 81MG CHEWABLE TABLET 324 MG PO (00:34)
[2024-12-05] MEDS: ACETAMINOPHEN 500MG TAB 1000 MG PO (00:34)
[2024-12-05] MEDS: 0.9 % SODIUM CHLORIDE 1000ML 1,000 ML 999 ML IV (00:35)
[2024-12-05] MEDS: BELLADONNA ALKALOIDS 60 ML ML PO (00:35)
[2024-12-05] MEDS: ONDANSETRON 4MG/2ML VIAL 4 MG IV (00:35)
[2024-12-05 00:45] LABS: Basophils # 0.1 K/mm3 (0-0.2); Basophils % 0.7 % (0.1-2.0); Eosinophils # 0.1 Kmm3 (0.0-0.4); Hematocrit 44.5 % (37.0-47.0); Hemoglobin 14.7 g/dL (12.2-16.2); Immature Granulocytes # 0.01 10^3uL; Immature Granulocytes % 0.1 %; Lymphocytes # 3.9 K/mm3 (0.7-4.5); Lymphocytes % 38.7 % (10-50); Mean Corpuscular Hemoglobin 32.7 pg (27.0-31.2); Mean Corpuscular Volume 98.9 fl (81-99); Mean Platelet Volume 10.4 fl (7.4-10.4); Monocytes # 0.7 K/mm3 (0.1-1.0); Monocytes % 7.2 % (1.7-9.3); Neutrophils # 5.2 K/mm3 (1.8-7.8); Neutrophils % 52.3 % (37.0-80.0); Nucleated Red Blood Cells # 0 10^3/uL; Nucleated Red Blood Cells % 0 %; Platelet Count 251 K/mm3 (142-424); Red Cell Distribution Width 13.1 % (11.5-17.5); Red Cell Distribution Width-SD 47.8 fL
[2024-12-05 00:52] LABS: Alanine Aminotransferase 13 U/L (12-78); Albumin Level 4.4 g/dl (3.5-5.0); Albumin/Globulin Ratio 1.3 (1.1-1.8); Alkaline Phosphatase 76 U/L (38-126); Anion Gap 7.6 mEq/L (5-15); Aspartate Amino Transferase 21 U/L (14-36); Bilirubin,Total 0.6 mg/dl (0.2-1.3); Blood Urea Nitrogen 17 mg/dl (7-17); Carbon Dioxide 33 mmol/L (22.0-30.0); Chloride 104 mmol/L (98-107); Creatinine Clearance Estimated 76 mL/min (50-200); Estimated Glomerular Filt Rate 73 ml/min (>60); GFR (African American) 88 ML/MIN (>60); Globulin 3.3 g/dL (1.3-3.2); Glucose 107 mg/dl (74-100); Lipase 51 U/L (23-300); Magnesium 1.9 mg/dl (1.6-2.3); Potassium 3.6 mmoL/L (3.5-5.1); Sodium 141 mmol/L (136-145); Total Protein,Serum 7.7 g/dl (6.3-8.2)
[2024-12-05 00:56] LABS: D-Dimer 0.42 ug/mL (0.0-0.5)
[2024-12-05 01:10] LABS: T4 (Thyroxine) 8.1 ug/dl (5.53-11.0)
[2024-12-05 01:23] LABS: Thyroid Stimulating Hormone 1.62 uIU/mL (0.465-4.68)
[2024-12-05 01:55] LABS: Troponin I < 0.01 ng/ml (0.00-0.034)
== END 2024-12-05 02:33 | disposition left against medical advice (07) ==
PROVIDERS: Emergency Provider Emergency Medicine; PCP Internal Medicine
DX: R07.89 Other chest pain (principal); R11.2 Nausea with vomiting, unspecified; J44.9 Chronic obstructive pulmonary disease, unspecified; F17.210 Nicotine dependence, cigarettes, uncomplicated; I10 Essential (primary) hypertension
CPT/HCPCS: 71045; 80053; 83690; 83735; 84436; 84443; 84484; 85025; 85378; 93005; 96361; 96374; 99285; J2405; J7030

== ENCOUNTER 2025-02-08 05:08 | Emergency (ER) | payer MEDICARE, MEDICAID, SELFPAY ==
--- NOTE | 2025-02-08 05:11 | HMH.EDGENADL ---
Discharge Plan Disposition Patient Disposition: Home, Self-Care Condition: Fair Prescriptions Prescriptions: No Action amlodipine 5 mg tablet 5 mg PO DAILY 90 Days Qty: 90 1RF atorvastatin 80 mg tablet 80 mg PO QHS Qty: 90 1RF clopidogrel 75 mg tablet 75 mg PO DAILY Qty: 90 1RF cyclobenzaprine 10 mg tablet See Rx Instructions .ROUTE .COMPLEX Qty: 90 0RF Dose Instruction: Take 1 tablet by mouth three times daily as needed for muscle spasm Rx Instructions: Take 1 tablet by mouth three times daily as needed for muscle spasm lisinopril 5 mg tablet 5 mg PO DAILY Qty: 90 1RF omeprazole 40 mg capsule,delayed release(DR/EC) See Rx Instructions .ROUTE .COMPLEX Qty: 90 0RF Dose Instruction: TAKE 1 CAPSULE BY MOUTH ONCE DAILY FOR GERD Rx Instructions: TAKE 1 CAPSULE BY MOUTH ONCE DAILY FOR GERD bupropion HCl [Wellbutrin SR] 150 mg tablet sustained-release 12 hr 150 mg PO BID Qty: 60 2RF fluoxetine 20 mg tablet 20 mg PO BID Qty: 60 2RF trazodone 50 mg tablet 50 mg PO DAILY Qty: 30 2RF ondansetron 8 mg tablet,disintegrating 8 mg PO Q8H PRN (Reason: nausea and vomiting) Qty: 30 1RF aspirin [Adult Low Dose Aspirin] 81 mg tablet,delayed release (DR/EC) 81 mg PO DAILY Spiriva Respimat 2.5 mcg/actuation mist inhalation (DME) Dickson Aerosol [place] Enhancer Spacer See Rx Instructions .Route Qty: 1 0RF Rx Instructions: As directed cholecalciferol (vitamin D3) 125 mcg (5,000 unit) capsule 125 mcg PO DAILY Qty: 30 2RF Veozah 45 mg tablet 45 mg PO DAILY Qty: 30 2RF albuterol sulfate 90 mcg/actuation HFA aerosol inhaler See Rx Instructions .ROUTE .COMPLEX Qty: 9 0RF Dose Instruction: INHALE 1 PUFF BY MOUTH EVERY 4 TO 6 HOURS NEEDED FOR SHORTNESS OF BREATH OR WHEEZING Rx Instructions: INHALE 1 PUFF BY MOUTH EVERY 4 TO 6 HOURS NEEDED FOR SHORTNESS OF BREATH OR WHEEZING Referrals Follow up/Referrals: Frandy Valdes DO [Primary Care Provider, Family Practice] - See instructions Activity Restrictions/Add. Instructions Additional Instructions/Restrictions: Please follow-up with your primary care provider. Please return to the emergency department if you develop any new or worsening symptoms or become concerned for your health. Clinical Impressions Clinical Impression: Headache Qualifiers: Headache chronicity pattern: acute headache Intractability: not intractable Print Language Print Language: German Discharge ED Provider: Balaji Martinez General Adult HPI General Chief complaint: Headache Stated complaint: headache x3 days, weakness Time Seen by Provider: 02/08/25 05:11 History of Present Illness HPI narrative: 59-year-old female with history of prior occipital stroke presents for acute on chronic symptoms including headache, tremors, vision changes. She reports that she has had a headache for the last several days. She reports that her vision intermittently goes out . That has been happening for the last year since her stroke. Similarly, she has tremors and memory difficulties that have been intermittent and present over the last year. She reports that her vision is currently blurry, but not different from her normal blurriness. She reports her headache is frontal and left-sided. No fevers. No trauma. Related Data Home Medications ?Medication ?Instructions ?Recorded ?Confirmed aspirin 81 mg tablet,delayed 81 mg PO DAILY 01/06/24 05/05/24 release (Adult Low Dose Aspirin) tiotropium bromide 2.5 inhalation 01/06/24 05/05/24 mcg/actuation mist for inhalation (Spiriva Respimat) Previous Rx's ?Medication ?Instructions ?Recorded amlodipine 5 mg tablet 5 mg PO DAILY 90 days #90 tabs 02/05/24 atorvastatin 80 mg tablet 80 mg PO QHS #90 tabs 02/05/24 clopidogrel 75 mg tablet 75 mg PO DAILY #90 tabs 02/05/24 cyclobenzaprine 10 mg tablet See Rx Instructions .Route 02/05/24 .COMPLEX #90 tabs inhalational spacing device (Dickson #1 ea 02/05/24 Aerosol [place] Enhancer spacer) lisinopril 5 mg tablet 5 mg PO DAILY #90 tabs 02/05/24 cholecalciferol (vitamin D3) 125 125 mcg PO DAILY #30 caps 02/06/24 mcg (5,000 unit) capsule bupropion HCl 150 mg tablet,12 hr 150 mg PO BID #60 ea 03/31/24 sustained-release (Wellbutrin SR) fluoxetine 20 mg tablet 20 mg PO BID Depression #60 tabs 03/31/24 omeprazole 40 mg capsule,delayed See Rx Instructions .Route 03/31/24 release .COMPLEX #90 caps trazodone 50 mg tablet 50 mg PO DAILY #30 tabs 03/31/24 fezolinetant 45 mg tablet (Veozah) 45 mg PO DAILY #30 tabs 04/21/24 ondansetron 8 mg disintegrating 8 mg PO Q8H PRN nausea and 05/05/24 tablet vomiting #30 tabs albuterol sulfate 90 mcg/actuation See Rx Instructions .Route 05/26/24 aerosol inhaler .COMPLEX #9 grams Allergies Allergy/AdvReac Type Severity Reaction Status Date / Time Penicillins Allergy Severe Swelling Verified 02/08/25 05:27 of Lip/Tongue/Throat morphine (MORPHINE) Allergy Intermediate Unknown Verified 02/08/25 05:27 allergy reaction naproxen (From ALEVE) Allergy Unknown SWELLING Verified 02/08/25 05:27 [facility] Disclaimer: The information contained in this section may have been updated after the patient was seen, as this information can be updated by other users. Medical History Asthma Macrocytosis Chronic calculous cholecystitis COPD (chronic obstructive pulmonary disease) Surgical History History of cholecystectomy History of ankle surgery H/O elbow surgery History of surgery on wrist H/O removal of cyst left cheek History of bilateral tubal ligation Family History Other No significant family history Social History Smoking Status: Current every day smoker tobacco type: cigarettes packs per day: 1 second hand exposure: Yes alcohol intake: current alcohol intake frequency: 0-2 drinks per day substance use type: denies use current occupational status: other Travel in the last 8 weeks?: None household members: spouse housing: apartment current occupational exposures/hazards: No caffeine: Yes Have you lived/traveled outside [place] in past 30 days?: No Contact w/someone who lives/traveled outside US past 30 days?: No Exposure to someone with infectious disease in past 14 days?: No Do you have a fever (greater than 100.4 F or 38 C)?: No Have you tested positive for COVID-19?: No Exposed to someone with COVID-19 in past 14 days?: No Do you have a sore throat?: No Do you have a cough?: No Do you have any weakness?: Yes Do you have any diarrhea?: No Are you experiencing any unusual bleeding?: No Do you have any muscle aches/pain?: No Do you have any abdominal pain?: No Are you experiencing loss of taste or smell?: No Other Medical History Have you received the Flu Vaccine for this season: No Have you received the Pneumonia Vaccine: No ROS Obtained: Yes All systems reviewed & no additional complaints except as documented Physical Exam General General appearance: alert and in no apparent distress Head Head exam: atraumatic and normocephalic Eye Eye exam: Present normal appearance, PERRL and EOMI ENT ENT exam: Present normal oropharynx and normal external ear exam Neck Neck exam: Present normal inspection and full ROM Chest Chest inspection: Present normal inspection and symmetric chest wall rise; Absent tenderness Respiratory Respiratory exam: Present normal lung sounds bilaterally; Absent respiratory distress Cardiovascular Cardiovascular exam: Present regular rate and normal rhythm Abdominal Exam Abdominal exam: Present soft; Absent distention, tenderness or guarding Extremities Exam Extremities exam: Present normal inspection; Absent edema or joint swelling Back Exam Back exam: Present normal inspection; Absent tenderness Neurological Exam Neurological exam: Present alert, oriented X3 and other (Blurry vision both eyes. Intermittent global tremor. Intact strength, sensation. Patient ambulated with her cane. Extraocular movements intact. [id number] and [id number] intact) Psychiatric Psychiatric exam: Present normal affect and normal mood Skin Skin exam: Present warm, dry and normal color Lymphatic Lymphatic Findings: no adenopathy Medical Decision Making Medical Records Medical records reviewed: Yes I reviewed the patient's medical records. Screening: Per USPSTF and CDC recommendations, given the prevalence of disease in our region, it is our hospital?s policy to screen for HIV and viral Hepatitis for all patients aged 18 and over and those with ongoing risk factors. Ronnie Inquiry Pt receiving controlled substance: No Ronnie was queried for this patient: No Vital Signs: 02/08/25 05:22 02/08/25 06:31 02/08/25 07:01 Temperature 97.8 F Temperature Source Oral Pulse Rate 67 58 L Pulse Rate [Right] 84 Respiratory Rate 16 19 13 Blood Pressure 161/74 H 158/76 H Blood Pressure [Right Arm] 198/77 H Blood Pressure Mean [Right Arm] 117 02 Sat by Pulse Oximetry 97 93 L 97 Oxygen Delivery Method Room Air 02/08/25 07:10 Temperature 97.8 F Temperature Source Pulse Rate 58 L Pulse Rate [Right] Respiratory Rate 13 Blood Pressure 158/76 H Blood Pressure [Right Arm] Blood Pressure Mean [Right Arm] 02 Sat by Pulse Oximetry Oxygen Delivery Method Lab Data Lab results reviewed: Yes I reviewed the patient's lab results. Lab Results 02/08/25 05:18: WBC 9.1, RBC 4.87, Hgb 16.6 H, Hct 48.7 H, MCV 100.0 H, MCH 34.1 H, MCHC 34.1, RDW 12.7, Plt Count 235, MPV 10.5 H, Neut % (Auto) 57.5, Lymph % (Auto) 32.9, [place] % (Auto) 7.4, Eos % (Auto) 1.2, Baso % (Auto) 0.8, Neut # (Auto) 5.2, Lymph # (Auto) 3.0, [place] # (Auto) 0.7, Eos # (Auto) 0.1, Baso # (Auto) 0.1, Sodium 141, Potassium 3.7, Chloride 101, Carbon Dioxide 34 H, Anion Gap 9.7, BUN 4 L, Creatinine 0.60, Estimated Creat Clear 78, Estimated GFR 102, Est GFR ( Amer) 123, Glucose 82, Calcium 9.6, Total Bilirubin 0.6, AST 42 H, ALT 12, Alkaline Phosphatase 91, Total Protein 7.6, Albumin 4.5, Globulin 3.1, Albumin/Globulin Ratio 1.5 02/08/25 05:18 02/08/25 05:18 Orders (Tests/Meds): ED MEDICATIONS Discontinued Medications Generic Name Dose Route Start Last Admin Trade Name Freq PRN Reason Stop Dose Admin Magnesium Sulfate 2 gm in 50 mls @ 150 mls/hr 02/08/25 05:31 02/08/25 06:31 Magnesium Sulfate 2gm/50ml Premix IV 02/08/25 05:50 Infused ONCE ONE Infusion Lactated Ringer's 1,000 mls @ 999 mls/hr 02/08/25 05:45 02/08/25 07:07 Lactated Ringer's 1000 Ml Bag IV 02/08/25 06:45 0 mls/hr .Q1H1M MIKAELA Infusion Iopamidol 80 ml 02/08/25 06:06 02/08/25 06:07 Iopamidol-370 (76%);100ml Bottle IV 02/08/25 06:07 80 ml ONCE ONE Administration Ketorolac Tromethamine 30 mg 02/08/25 05:31 02/08/25 06:07 Ketorolac 30mg/Ml Vial IV 02/08/25 05:32 30 mg ONCE ONE Administration Prochlorperazine Edisylate 10 mg 02/08/25 05:31 02/08/25 06:06 Prochlorperazine 10mg/2ml Vial IV 02/08/25 05:32 10 mg ONCE ONE Administration Sodium Chloride 50 ml 02/08/25 06:06 02/08/25 06:07 0.9 % Sodium Chloride 50 Ml Vial IV 02/08/25 06:07 50 ml ONCE ONE Administration Sodium Chloride 10 ml 02/08/25 06:06 02/08/25 06:07 Sodium Chloride 0.9% 10ml Syr (Rad Only) IV 02/08/25 06:07 10 ml ONCE ONE Administration ORDERS Category Date Time Status CT Venogram head Stat Cat Scan 02/08/25 05:[address] head/brain wo con Stat Cat Scan 02/08/25 05:31 Completed CBC w/Auto Diff [Complete Blood Count Auto Diff] Stat Lab 02/08/25 05:18 Completed CMP [Comprehensive Metabolic Panel] Stat Lab 02/08/25 05:18 Completed Medical Decision Narrative: 59-year-old female with history of occipital stroke last year as well as COPD presents for chronic tremor and vision changes as well has acute on chronic headache for the last several days.. History was obtained via interactive discussion with patient, family, chart review. On arrival, patient is [afebrile, hemodynamically stable, satting appropriately, alert, oriented x4, GCS 15], moving all extremities spontaneously. Full physical exam performed and significant for findings as documented above Differential includes but is not limited to tension headache, migraine headache, sequelae of prior stroke, intracranial bleeding, mass lesion, cerebral venous thrombosis, aneurysm. Patient was given migraine cocktail for symptomatic management and correction of underlying abnormalities. Workup initiated including CT head, CTV, basic labs. On re-evaluation, patient reports marked symptomatic improvement. Laboratory workup independently interpreted by me and significant for no significant leukocytosis, normal renal function. Imaging independently interpreted by me and significant for sequela of prior occipital stroke, no acute findings such as thrombosis or hemorrhage. See radiology read for full review of final results. Given patient history, exam and workup, patient's presentation most likely represents headache with chronic residual symptoms due to stroke. Patient was discharged in stable condition with return precautions.. Procedures Risk/Benefits of Procedure(s) Were Explained: Yes Critical Care Critical Care Time Critical Care Time: No
--- OUTSIDE RECORDS SUMMARY | 2025-02-08 05:16 | XMS_ITS | Clinical Summary ---
Author Organization [employer] [facility] Address [address] [place] [phone] Phone Care Team Providers Care Bleach Supervisor Name Role Phone George Crouch MD Primary Care Physician [ ] Conditions or Problems Problem Name Problem Code Onset Date Status Entry Date Provider Comment Standard Description Annotate Low back pain 996842094 (SNOMED CT) 08/24 Active 08/24 George Crouch MD Low back pain COPD EXACERBATION J44.1 (ICD-10-CM ) Inactive George Crouch MD Chronic obstructive pulmonary disease with (acute) exacerbation Sinusitis, acute 43369856 (SNOMED CT) Inactive George Crouch MD Acute sinusitis Depression 57443423 (SNOMED CT) Active George Crouch MD Depressive disorder Asthma 768961989 (SNOMED CT) Active George Crouch MD Asthma NEVI, MULTIPLE 343306735 (SNOMED CT) 01/25 Active 01/25 George Crouch MD Skin - benign mole and nevus GASKET NOTCHER EXAM 76642710 (SNOMED CT) 11/22 Inactive 11/22 George Crouch MD Gynecologic examination VAGINITIS NOS 96789978 (SNOMED CT) 11/22 Inactive 11/22 George Crouch MD Vaginitis CANDIDIASIS SKIN B37.2 (ICD-10-CM ) 10/27 Inactive 10/27 George Crouch MD Candidiasis of skin and nail MIGRAINE 08665942 (SNOMED CT) 10/27 Active 10/27 George Crouch MD Migraine GERD 892838031 (SNOMED CT) 10/12 Active 10/12 George Crouch MD Gastroesophagea l reflux disease PREOPERATIVE EXAMINATION 329461060 (SNOMED CT) 09/06 Resolved 09/06 George Crouch MD Preoperative procedures COPD EXACERBATION J44.1 (ICD-10-CM ) 07/27 Resolved 07/27 George Crouch MD Chronic obstructive pulmonary disease with (acute) exacerbation MENOPAUSE-RE LATED VASOMOTOR SYMPTOMS 126085020 (SNOMED CT) 10/12 Active 10/12 George Crouch MD Menopause symptoms present Question of RESTLESS LEG SYNDROME 55170702 (SNOMED CT) 10/12 Active 10/12 George Crouch MD Restless legs OBESITY NOS 552984946 (SNOMED CT) 10/12 Active 10/12 George Crouch MD Obesity BP HIGH NO HTN R03.0 (ICD-10-CM ) 10/12 Active 10/12 George Crouch MD Elevated blood-pressure reading, without diagnosis of hypertension COPD 46072995 (SNOMED CT) 09/21 Active 09/21 Angelia Goldberg MAIL SORTING SUPERVISOR Chronic obstructive pulmonary disease ANXIETY DEPRESSION 090439070 (SNOMED CT) 09/21 Active 09/21 Angelia Goldberg MAIL SORTING SUPERVISOR Mixed anxiety and depressive disorder ANKLE PAIN, CHRONIC 385038692 (SNOMED CT) 09/21 Active 09/21 Angelia Goldberg MAIL SORTING SUPERVISOR Ankle pain PREOPERATIVE EXAMINATION 187388963 (SNOMED CT) 09/06 Removed 09/06 Geetha Tolbert MD Preoperative procedures HYPERLIPIDEM IA 24643063 (SNOMED CT) 07/27 Active 07/27 Geetha Tolbert MD Hyperlipidemia TOBACCO USE DIS F17.200 (ICD-10-CM ) 07/27 Active 07/27 Geetha Tolbert MD Nicotine dependence, unspecified, uncomplicated COPD EXACERBATION J44.1 (ICD-10-CM ) 07/27 Removed 07/27 Geetha Tolbert MD Chronic obstructive pulmonary disease with (acute) exacerbation Medications Medication Instructions Start Date Stop Date Generic Name NDC Provider NORTRIPTYLINE HCL 50 MG CAPS 1 CAP QHS NORTRIPTYLINE HCL 11686339613 George Crouch MD MELOXICAM 7.5 MG TABS 1 TAB DAILY WITH FOOD MELOXICAM 59294434782 George Crouch MD IMITREX 50 MG TABS 1 TAB PRN-MIGRAINES; MAY REPEAT Q2H PRN ; MAXIMUM = 4 CAPS / 24 HRS SUMATRIPTAN SUCCINATE 18606211001 George Crouch MD FLUOXETINE HCL 20 MG CAPS TAKE 1 CAPSULE BY MOUTH ONCE A DAY FLUOXETINE HCL 76231548470 George Crouch MD WELLBUTRIN SR 150 MG [id number] 1 TAB 2 TIMES / DAY BUPROPION HCL 07709879422 George Crouch MD IMITREX 50 MG TABS 1 TAB PRN-MIGRAINES; MAY REPEAT Q2H PRN ; MAXIMUM = 4 CAPS / 24 HRS SUMATRIPTAN SUCCINATE 53919146622 George Crouch MD MELOXICAM 7.5 MG TABS 1 TAB DAILY WITH FOOD MELOXICAM 51286431690 George Crouch MD FLUOXETINE HCL 20 MG CAPS TAKE 1 CAPSULE BY MOUTH ONCE A DAY FLUOXETINE HCL 90130395800 George Crouch MD CYCLOBENZAPRINE HCL 10 MG TABS 1 TAB Q12H PRN- CYCLOBENZAPRINE HCL 03485036447 Britt Sanchez LPN MELOXICAM 7.5 MG TABS 1 TAB DAILY WITH FOOD MELOXICAM 26697944920 Britt Sanchez LPN FLUOXETINE HCL 20 MG CAPS TAKE 1 CAPSULE BY MOUTH ONCE A DAY FLUOXETINE HCL 16554952355 George Crouch MD WELLBUTRIN SR 150 MG [id number] 1 TAB DAILY X 3 DAYS; THEN 1 TAB 2 TIMES / DAY BUPROPION HCL 49460445112 George Crouch MD CYCLOBENZAPRINE HCL 10 MG TABS 1 TAB Q12H PRN- CYCLOBENZAPRINE HCL 67913701318 George Crouch MD MELOXICAM 7.5 MG TABS 1 TAB DAILY WITH FOOD MELOXICAM 76333747368 George Crouch MD IMITREX 50 MG TABS 1 TAB PRN-MIGRAINES; MAY REPEAT Q2H PRN ; MAXIMUM = 4 CAPS / 24 HRS SUMATRIPTAN SUCCINATE 97717307035 George Crouch MD FLUOXETINE HCL 20 MG CAPS TAKE 1 CAPSULE BY MOUTH ONCE A DAY FLUOXETINE HCL 83220789085 George Crouch MD CLOTRIMAZOLE AF 1 % CREA APPLY DIRECTED 2 TIMES / DAY CLOTRIMAZOLE 65650565742 George Crouch MD SPIRIVA HANDIHALER 18 MCG CAPS USE 1 INHALATION ONCE A DAY TIOTROPIUM BROMIDE MONOHYDRATE 81324866697 George Crouch MD VENTOLIN HFA 108 (90 Base) MCG/ACT AERS TAKE 2 INHALATIONS 4 TIMES A DAY NEEDED FOR WHEEZING ALBUTEROL SULFATE 02736839813 George Crouch MD ESTRADIOL 0.075 MG/24HR PTTW APPLY 1 PATCH WKLY ESTRADIOL 76745157812 George Crouch MD PROMETRIUM 200 MG CAPS 1 CAP QHS PROGESTERONE MICRONIZED 73425809180 George Crouch MD AUGMENTIN 875-125 MG ORAL TABLET Take 1 tablet by mouth twice a day 0 08/24 AMOXICILLIN-POT CLAVULANATE 92522892537 George Coruch MD PREDNISONE 20 MG TABS 1 TAB 3 TIMES/DAY X 2D; THEN 1 TAB 2 TIMES/DAY X 2D; THEN 1 TAB DAILY X 2D 0 08/24 PREDNISONE 42949980824 George Crouch MD WELLBUTRIN SR 150 MG [id number] 1 TAB DAILY X 3 DAYS; THEN 1 TAB 2 TIMES / DAY BUPROPION HCL 63744330247 George Crouch MD PREDNISONE 20 MG TABS 1 TAB 3 TIMES/DAY X 2D; THEN 1 TAB 2 TIMES/DAY X 2D; THEN 1 TAB DAILY X 2D PREDNISONE 84613488752 George Crouch MD AUGMENTIN 875-125 MG ORAL TABLET Take 1 tablet by mouth twice a day AMOXICILLIN-POT CLAVULANATE 03682026747 George Crouch MD ESTRADIOL 0.05 MG/24HR PTWK 1 PATCH / WK ESTRADIOL 83370247148 George Crouch MD IMITREX 50 MG TABS 1 TAB PRN-MIGRAINES; MAY REPEAT Q2H PRN ; MAXIMUM = 4 CAPS / 24 HRS SUMATRIPTAN SUCCINATE 74959038208 George Crouch MD NORTRIPTYLINE HCL 50 MG CAPS 1 CAP QHS NORTRIPTYLINE HCL 43655375506 George Crouch MD FLUOXETINE HCL 20 MG CAPS TAKE 1 CAPSULE BY MOUTH ONCE A DAY FLUOXETINE HCL 00655722587 George Crouch MD OMEPRAZOLE 20 MG TBEC 1 TAB 2 TIMES / DAY OMEPRAZOLE 77154321751 George Crouch MD ESTRADIOL 0.05 MG/24HR PTWK 1 PATCH / WK ESTRADIOL 78759483276 George Crouch MD PROMETRIUM 100 MG CAPS 1 CAP QHS PROGESTERONE MICRONIZED 58500140708 George Crouch MD ESTRADIOL 0.025 MG/24HR PTWK 1 PATCH WKLY ESTRADIOL 97002149335 George Crouch MD METRONIDAZOLE 500 MG TABS 1 TAB 2 TIMES DAILY 20140 11/29 METRONIDAZOLE 07372685451 George Crouch MD IMITREX 50 MG TABS 1 TAB PRN-MIGRAINES; MAY REPEAT Q2H PRN ; MAXIMUM = 4 CAPS / 24 HRS SUMATRIPTAN SUCCINATE 03979042859 George Crouch MD CLOTRIMAZOLE AF 1 % CREA APPLY DIRECTED 2 TIMES / DAY CLOTRIMAZOLE 80755944762 George Crouch MD NORTRIPTYLINE HCL 50 MG CAPS 1 CAP QHS NORTRIPTYLINE HCL 14797545892 George Crouch MD VITAMIN D3 125 MCG (5000 UT) CAPS Take 1 capsule by mouth daily CHOLECALCIFEROL 35054191179 George Crouch MD RANITIDINE HCL 150 MG ORAL TABLET 1 TAB QAM & 1 QHS RANITIDINE HCL 22770803756 George Crouch MD VENTOLIN HFA 108 (90 Base) MCG/ACT AERS TAKE 2 INHALATIONS 4 TIMES A DAY NEEDED FOR WHEEZING ALBUTEROL SULFATE 09560732758 George Crouch MD SPIRIVA HANDIHALER 18 MCG CAPS USE 1 INHALATION ONCE A DAY TIOTROPIUM BROMIDE MONOHYDRATE 67968234108 George Crouch MD FLUOXETINE HCL 20 MG CAPS TAKE 1 CAPSULE BY MOUTH ONCE A DAY FLUOXETINE HCL 37201812331 George Crouch MD LOVASTATIN 10 MG TABS TAKE 1 TABLET BY MOUTH EVERY NIGHT AT BEDTIME 09/21 LOVASTATIN 45168297853 Angelia Goldberg MAIL SORTING SUPERVISOR PROAIR HFA 108 (90 Base) MCG/ACT INHALATION AEROSOL SOLUTION 2PUFFS Q 4HRS PRN 09/21 ALBUTEROL SULFATE 87207525095 Angelia Goldberg MAIL SORTING SUPERVISOR AMOXICILLIN 500 MG CAPS 1po bid 09/21 AMOXICILLIN 67868598449 Angelia Goldberg MAIL SORTING SUPERVISOR NORTRIPTYLINE HCL 25 MG CAPS take one capsule by mouth every evening NORTRIPTYLINE HCL 66694346254 George Crouch MD PROAIR HFA 108 (90 Base) MCG/ACT INHALATION AEROSOL SOLUTION 2PUFFS Q 4HRS PRN ALBUTEROL SULFATE 05808806824 Geetha Tolbert MD LOVASTATIN 10 MG TABS TAKE 1 TABLET BY MOUTH EVERY NIGHT AT BEDTIME LOVASTATIN 10622421009 Geetha Tolbert MD PROAIR HFA 108 (90 Base) MCG/ACT INHALATION AEROSOL SOLUTION ALBUTEROL SULFATE 88878117764 Geetha Tolbert MD AMOXICILLIN 500 MG CAPS 1po bid AMOXICILLIN 97023482505 Geetha Tolbert MD Medications Administered No information available. Allergies, Adverse Reactions, Alerts Allergy Name Reaction Description Start Date Severity Statu s Provider MORPHINE Critical Active Geetha diallo MD [id number] Critical No Longer Active Geetha Tolbert MD [...] in Blood ABS NEUTROPH 4868 CELLS/UL 10*3/uL [phone] N Neutrophils [#/volume] in Blood MPV 9.2 [...] Plan of Care Type Date Detail Referral [facility] Gastroenterology [facility], [address] [facility] [address], [place], [address] Referral Dermatology Refe Cookie Escalante, [address], [place], [address] Referral Dermatology Refe Cookie Escalante, [address], [place], [address] Referral excluded fr om report: Referral [facility] Referral [facility] Referral excluded fr om report: Referral Ophthamology Opt ometry Referral [facility]ight, [facility], [address] [place] [address], [phone] Pending order Medication Recon ciliation Pending order CBC no diff Pending order CMP Pending order Lipid Panel Pending order TSH reflex to fr ee T4 Pending order Mammogram Pending order SNOMED-CT: 28530 3000 Smoking Cessation Counseling Pending order SNOMED-CT: 69558 4810322488 Current Medications Documented Pending order Mammogram Pending [...] Procedures Code Procedure Name Date Entry Date [facility]-[id number] Medication Reconciliation [facility]-[id number] SNOMED-CT: 660359064 Smoking Cessation Counseling [facility]-[id number] OMED-CT: [id number] 612136 Current Medications Documented [facility] 1759 [place] [address] [facility] Test # CMP 3 34853 [facility] # Lipid Panel 3 58496 [facility] # TSH reflex to free T4 Mammo JUNIOR Mammogram [facility]STRO [facility] Mammo JUNIOR Mammogram 95906 [facility] # CMP 1 [facility] 1759 CBC no diff DERM [facility] Dermatology Referral [facility] [place] 2 CPT-44816 Pulse Ox for O2 Saturation; single 66344 PSYCH [facility] 03/28 OPHTH OPT [facility] Ophthamology Optomet ry Referral [facility] Mammo JUNIOR Mammogram [facility]# 47218 ThinPrep w HR HPV/GC/Chlamydia mRNA E6/E7 41729 [facility] # BV Yeast Trich Culture (Affirm) 201 09/19/08 55313 [facility] # Lipid Panel 4 CPT-25532 Urine Dip Auto 98841 927 [facility] # B12 [facility]# 1759 [place] 71182 [facility] # CMP 9 19308 [facility] # TSH reflex to free T4 00717 [facility] # Vitamin D 25 Hydroxy 2 496 [facility] # HGBA1c CPT-87865 CBC with diff (Outside Lab) CPT-15614 CMP (Outside Lab) CPT-30816 Lipid Panel (Outside Lab) 20 04/17/11 CPT-13176 TSH reflex to free T-4 (Outside Lab) [...] PneumoPCV 133 Unknown Zostavax Subcutaneous Solution Reconstituted 44390 UNT/0.65ML ([facility] [id number]) Zoster 121 Unknown Advance Directives No information available.
--- OUTSIDE RECORDS SUMMARY | 2025-02-08 05:17 | XMS_ITS | Clinical Summary ---
Author Organization [facility] Address [address] [facility] [address] [place] [address] Care Team Providers Care Roof Foreman Name Role Phone System, Provider Not In Primary Care Provider Un available Social History Tobacco Use Types Packs/Day Years Used Date Smoking Tobacco: Never Assessed Comments Unknown Sex and Gender Information Value Date Recorded Sex Assigned at Not on file Legal Sex Female 2:34 PM EST Gender Identity Not on file Sexual Orientation Not on file Plan of Treatment Health Maintenance Due Date Last Done Comments CT Colonography 1963 Colonoscopy 1963 Colorectal Cancer Screening 1963 FIT-DNA (Cologuard) 1963 FIT 1963 FOBT 1963 HIV Screening 1963 Lipid Panel 1963 Medicare Annual Wellness (AWV) 1963 Sigmoidoscopy 1963 MMR Vaccines (1 of 1 - Stand moises series) 1964 Hepatitis B Screening 1981 DTaP/Tdap/Td Vaccines (1 - Tdap) 1982 Pap Smear 1984 Cervical Cancer Screening 1993 HPV/Cotest 1993 Mammogram 2003 Pneumococcal Vaccine: 50+ Ye ars (1 of 1 - PCV) 2013 Zoster Vaccines (1 of 2) 2013 COVID-19 Vaccine ( - 2023-2 5 season) 2024 Depression Risk Screening 06/16/2024 SDOH Screening 06/16/2024 Influenza Vaccine (#1) 2025 Hepatitis C Screening Completed 11/09/2024 HIB Vaccines Aged Out No longer eligi ble based on patient's age to complete this topic HPV Vaccines Aged Out No longer eligi ble based on patient's age to complete this topic Hepatitis A Vaccines Aged Out No long er eligible based on patient's age to complete this topic Hepatitis B Vaccines Aged Out No long er eligible based on patient's age to complete this topic IPV Vaccines Aged Out No longer eligi ble based on patient's age to complete this topic Meningococcal B Vaccine Aged Out No l onger eligible based on patient's age to complete this topic Meningococcal Vaccine Aged Out No samira vero eligible based on patient's age to complete this topic Rotavirus Vaccines Aged Out No longer eligible based on patient's age to complete this topic Procedures Procedure Name Priority Date/Time Associated Diagnosis Comments TROPONIN I, HIGH SENSITIVE Timed 11/09/2024 10:00 PM EDT PROTIME-INR STAT 11/09/2024 10:[address] HEAD WO CONTRAST 11/09/2024 9 :06 PM EDT XR CHEST 1 VW PORTABLE 6:56 PM EDT HIV 1 AND 2 AB/AG COMBO Routine 11/09/2024 6:11 PM EDT HEPATITIS C AB W/REFL TO HCV RNA, QN, PCR Routine 11/09/2024 6:11 PM EDT TROPONIN I, HIGH SENSITIVE STAT 11/09/2024 6:11 PM EDT CMP COMPREHENSIVE METABOLIC PANEL STAT 11/09/2024 6:11 PM EDT AUTODIFF STAT 11/09/2024 6:11 PM EDT CBC AND DIFFERENTIAL STAT 11/09/2024 6:11 PM EDT from Last 3 Months Results * (ABNORMAL) TROPONIN I, HIGH SENSITIVE (11/09/2024 10:00 PM EDT) Only the most recent of2 resultswithin the time period is included. TROPONIN I, HIGH SENSITIVE 16(H) <=14 ng/Liter 11/09/2024 11:00 PM EDT [facility] Remisol SS Blood 11/09/2024 10:0 0 PM EDT 11/09/2024 10:10 PM EDT Narrative [facility] - 11/09/2024 11:00 PM EDT rpt trop > dispo RN ADDDORCASON WILL DRAW 11/09/2024 21:41:55 EDT SM Performed by [facility], [address] [place] [address] Arabella Nunes APRN LAB BLOOD ORDERABLES Final Result [facility] [address] [place] [address], [facility] Remisol Pathology Department [address] [place] [address] * Protime-INR (11/09/2024 10:00 PM EDT) PT 10.4 9.7 - 11.5 Second 11/09/2024 10:30 PM EDT [facility] Coag Comment:When using the PT to screen for a coagulopathy, please refer to the PT reference range to evaluate results. INR 0.9 11/09/2024 10:30 PM EDT [facility] Coag Comment: To monitor warfarin, the INR calculated from the PT is used, according to current published guidelines: *Most indications, moderate intensity INR (2.0-3.0) is effective. *Patients with recurrent thromboembolic events with a therapeutic INR as above, or other additional risk factors for thromboembolic events, high intensity INR (2.5-3.5) is recommended. *Optimal target range for the INR is not likely to be the same for all indications, and lower INR targets may be prudent for patients at very high risk of bleeding. The INR is used to manage patients on warfarin, and thus is not compared to a normal INR range. The validity of the INR in other conditions of impaired coagulation has not been fully evaluated, and the PT recorded in seconds is recommended in these instances. Ref: CHEST November 2007 supplement. Blood Venous Draw / Unknown 11/09/2024 10:00 PM EDT 11/09/2024 10:10 PM EDT Narrative [facility] - 11/09/2024 10:30 PM EDT rpt trop > dispo MARNIE SUNG WILL DRAW 11/09/2024 21:41:55 EDT SM Performed by [facility], [address] [place] [address] us Tala Cazares MD LAB BLOOD ORDERABLES Final Re sult [facility] [address] [place] [address], [facility] Core Coag Pathology Department [address] [place] [address] * CT HEAD WO (11/09/2024 9:06 PM EDT) Anatomical Region Laterality Modality Head, Neck Computed Tomogra phy 11/09/2024 9:06 PM EDT Narrative 11/09/2024 9:09 PM EDT ACCESSION NUMBER: [id number] DATE: 11/09/2024 21:06 EXAMINATION: CT BRAIN WITHOUT CONTRAST PROVIDED INDICATION AND HISTORY: Dizziness, persistent/recurrent, cardiac or vascular cause suspected. COMPARISON: None TECHNIQUE: Axial computed tomographic images of the brain from the base of the skull to the cranial apex without intravenous contrast administration. Reformatted images include axial 1 mm and axial 5 mm. FINDINGS: Major Findings: There are no intra or extra-axial hemorrhages, masses, midline shift or recent infarcts. Incidental and Normal Findings: Deep francis, Cortex and White Matter: Minimal supratentorial white matter nonspecific hypodensities are likely minimal chronic white matter ischemic-related gliosis based on age and statistics. Encephalomalacia changes in the bilateral parafalcine parietal occipital lobes. Sulci and Ventricles: The ventricles and sulci are mildly prominent. Soft Tissues, Cranium and Orbits: Orbits and globes are normal in appearance. The bony calvarium is intact. Superficial soft tissues are normal. Paranasal and Mastoid Sinuses: Fluid level in the left maxillary sinus. Mastoid sinuses are clear. Vessels: Carotid syphons are mildly intermittently calcified and vertebral arteries are focally calcified. IMPRESSION: # No intra or extra-axial hemorrhages, masses, midline shift or recent infarcts. # Medial and posterior biparietal encephalomalacia extends to adjacent bilateral occipital lobes. # Fluid level with frothy secretion in the left maxillary sinus may be related to acute sinusitis. I, the attending/teaching physician, have personally reviewed, discussed, and supervised this radiological examination with the resident and this report reflects my agreement. Dictated by: Andria Holliday MD Signed by Charlie Alston M.D. on 11/09/2024 23:16 ##### Final ##### Dictated by: ANDRIA HOLLIDAY MD-RDT Dictated DT/TM: 11/09/2024 11:16 pm Interpreted and electronically signed by: CHARLIE ALSTON MD-RAD Signed DT/TM: 11/09/2024 11:16 pm Procedure Note Charlie Alston MD - 11/09/2024 ACCESSION NUMBER: [id number] DATE: 11/09/2024 21:06 EXAMINATION: CT BRAIN WITHOUT CONTRAST PROVIDED INDICATION AND HISTORY: Dizziness, persistent/recurrent, cardiacor vascular cause suspected. COMPARISON: None TECHNIQUE: Axial computed tomographic images of the brain from the base ofthe skull to the cranial apex without intravenous contrast administration.Reformatted images include axial 1 mm and axial 5 mm. FINDINGS: Major Findings: There are no intra or extra-axial hemorrhages, masses,midline shift or recent infarcts. Incidental and Normal Findings: Deep francis, Cortex and White Matter: Minimal supratentorial whitematter nonspecific hypodensities are likely minimal chronic white matterischemic-related gliosis based on age and statistics. Encephalomalaciachanges in the bilateral parafalcine parietal occipital lobes. Sulci and Ventricles: The ventricles and sulci are mildlyprominent. Soft Tissues, Cranium and Orbits: Orbits and globes are normal inappearance. The bony calvarium is intact. Superficial soft tissues arenormal. Paranasal and Mastoid Sinuses: Fluid level in the left maxillarysinus. Mastoid sinuses are clear. Vessels: Carotid syphons are mildly intermittently calcified andvertebral arteries are focally calcified. IMPRESSION: # No intra or extra-axial hemorrhages, masses, midline shift or recentinfarcts. # Medial and posterior biparietal encephalomalacia extends to adjacentbilateral occipital lobes. # Fluid level with frothy secretion in the left maxillary sinus may berelated to acute sinusitis. I, the attending/teaching physician, have personally reviewed, discussed,and supervised this radiological examination with the resident and thisreport reflects my agreement. Dictated by: Andria Holliday MD Signed by Charlie Alston M.D. on 523:16 ##### Final ##### Dictated by: ANDRIA HOLLIDAY MD-RDT Dictated DT/TM: 11/09/2024 11:16 pm Interpreted and electronically signed by: CHARLIE ALSTON MD-RAD Signed DT/TM: 11/09/2024 11:16 pm us Arabella Nunes HAND RIVETER IMG CT PROCEDURES Final Res ult * XR CHEST 1 VW PORTABLE (11/09/2024 6:56 PM EDT) Anatomical Region Laterality Modality Chest Radiographic Adelaide ging 11/09/2024 6:56 PM EDT Narrative 11/09/2024 7:23 PM EDT ACCESSION NUMBER: [id number] DATE: 11/09/2024 18:56 EXAMINATION: CR Chest 1 Vw Portable PROVIDED INDICATION: dizziness COMPARISON: None TECHNIQUE: AP portable upright radiograph of the chest FINDINGS: The lungs are well-inflated and clear. There is no pleural effusion or pneumothorax. The cardiomediastinal silhouette is unremarkable. No acute bony abnormalities. IMPRESSION: No acute cardiopulmonary abnormality. Dictated by: Jovanni Ortiz M.D. Signed by Jovanni Ortiz M.D. on 11/09/2024 19:29 ##### Final ##### Dictated by: JOVANNI ORTIZ MD-RAD Dictated DT/TM: 11/09/2024 7:29 pm Interpreted and electronically signed by: JOVANNI ORTIZ MD-RAD Signed DT/TM: 11/09/2024 7:29 pm Procedure Note Jovanni Ortiz MD - 11/09/2024 ACCESSION NUMBER: [id number] DATE: 11/09/2024 18:56 EXAMINATION: CR Chest 1 Vw Portable PROVIDED INDICATION: dizziness COMPARISON: None TECHNIQUE: AP portable upright radiograph of the chest FINDINGS: The lungs are well-inflated and clear. There is no pleuraleffusion or pneumothorax. The cardiomediastinal silhouette isunremarkable. No acute bony abnormalities. IMPRESSION: No acute cardiopulmonary abnormality. Dictated by: Jovanni Ortiz M.D. Signed by Jovanni Ortiz M.D. on11/09/2024 19:29 ##### Final ##### Dictated by: JOVANNI ORTIZ MD-RAD Dictated DT/TM: 11/09/2024 7:29 pm Interpreted and electronically signed by: JOVANNI ORTIZ MD-RAD Signed DT/TM: 11/09/2024 7:29 pm Arabella Adams Nunes HAND RIVETER IMG XR PROCEDURES Final Res ult * HEPATITIS C AB W/REFL TO HCV RNA, QN, PCR (11/09/2024 6:11 PM EDT) Pathologist [facility] Hep C Virus Ab NONREACTIVE Nonreactive 11/09/2024 7:28 PM EDT [facility] CH Rem 2.0 Blood 11/09/2024 6:11 PM EDT 11/09/2024 6:21 PM EDT [facility] - 11/09/2024 7:28 PM EDT Ready for CT Orthostats, urine Collect only if other blood is being drawn. Ordered per Hep C Screening Protocol. (CN_DOC_[email or web address]_C_SCREEN) Performed by [facility], [address] [place] [address] Non-Ulp Provider LAB BLOOD ORDERABLES Final Resu lt [facility] [address] [place] [address], [facility] CH Rem 2.0 Pathology Department [address] [place] [address] * AUTODIFF (11/09/2024 6:11 PM EDT) NEUT % 58.0 34.0 - 75.0 % 11/09/2024 6:29 PM EDT [facility] Rem 2.0 LYMPH % 34.6 17.0 - 53.0 % 11/09/2024 6:29 PM EDT [facility] HE Rem 2.0 MONO % 5.8 2.0 - 12.0 % 11/09/2024 6:29 PM EDT [facility] HE Rem 2.0 EOS % 1.0 0.0 - 7.0 % 11/09/2024 6:29 PM EDT [facility] HE Rem 2.0 BASO % 0.6 0.0 - 3.0 % 11/09/2024 6:29 PM EDT [facility] HE Rem 2.0 NEUT # 4.6 1.5 - 7.1 x10(3)/ul 11/09/2024 6:29 PM EDT [facility] HE Rem 2.0 LYMPH # 2.7 1.0 - 3.5 x10(3)/ul 11/09/2024 6:29 PM EDT [facility] HE Rem 2.0 MONO # 0.5 0.0 - 1.0 x10(3)/ul 11/09/2024 6:29 PM EDT [facility] Rem 2.0 EOS # 0.1 0.0 - 0.7 x10(3)/ul 11/09/2024 6:29 PM EDT [facility] HE Rem 2.0 BASO # 0.0 0.0 - 0.3 x10(3)/ul 11/09/2024 6:29 PM EDT [facility] HE Rem 2.0 Blood 11/09/2024 6:11 PM EDT 11/09/2024 6:23 PM EDT [facility] - 11/09/2024 6:29 PM EDT EKG Ordered by Discern Expert. Performed by [facility], [address] [place] [address], [place] [address] us Tala Cazares MD LAB BLOOD ORDERABLES Final Re sult [facility] [address] [place] [address], [facility] Rem 2.0 Pathology Department [address] [place] [address] * Hiv 1 and 2 ab/ag combo [NAL-HIVAB] (11/09/2024 6:11 PM EDT) HIV1/2 P24AG/AB COMBO Nonreactive 11/10/2024 1:53 AM EDT [facility] JAKY Immuno/Sero SS Blood 11/09/2024 6:11 PM EDT 11/10/2024 12:50 AM EDT [facility] - 11/10/2024 2:13 AM EDT trop 16 rpt trop > dispo Collect only if other blood is being drawn. Ordered per Hep C Screening Protocol. (CN_DOC_ED_HEP_C_SCREEN) Performed by [facility], [address] [place] [address] us Non-Ulp Provider LAB BLOOD ORDERABLES Final Resu lt [facility] [address] [place] [address], [facility] Immuno/Sero SS Pathology Department [address] [place] [address] * (ABNORMAL) CBC With Differential (11/09/2024 6:11 PM EDT) WBC 7.9 4.0 - 10.8 x10(3)/ul 11/09/2024 6:29 PM EDT [facility] Rem 2.0 RBC 4.58 3.77 - 5.16 x10(6)/ul 11/09/2024 6:29 PM EDT [facility] Rem 2.0 HGB 15.1 12.0 - 16.0 Gram/dL 11/09/2024 6:29 PM EDT [facility] Rem 2.0 Hematocrit 44.4 35.0 - 45.0 % 11/09/2024 6:29 PM EDT [facility] Rem 2.0 MCV 96.9(H) 79.4 - 94.8 fL 11/09/2024 6:29 PM EDT [facility] Rem 2.0 MCH 33.0(H) 25.6 - 32.2 pg 11/09/2024 6:29 PM EDT [facility] Rem 2.0 MCHC 34.0 32.3 - 36.5 Gram/dL 11/09/2024 6:29 PM EDT [facility] Rem 2.0 RDW 13.5 11.0 - 15.5 % 11/09/2024 6:29 PM EDT [facility] Rem 2.0 Platelets 206 140 - 420 x10(3)/ul 11/09/2024 6:29 PM EDT [facility] Rem 2.0 MPV 8.3(L) 8.7 - 12.0 fL 11/09/2024 6:29 PM EDT [facility] Rem 2.0 SLIDE REVIEW NONE 11/09/2024 6:29 PM EDT [facility] Rem 2.0 Blood 11/09/2024 6:11 PM EDT 11/09/2024 6:23 PM EDT [facility] - 11/09/2024 6:29 PM EDT EKG Performed by [facility], [address] [place] [address] us Tala Cazares MD LAB BLOOD ORDERABLES Final Re sult [facility] [address] [place] [address], [facility] Rem 2.0 Pathology Department [address] [place] [address] * (ABNORMAL) Comprehensive metabolic panel (11/09/2024 6:11 PM EDT) Sodium 142 136 - 145 mmol/L 11/09/2024 6:50 PM EDT [facility] Rem 2.0 Potassium 4.0 3.5 - 5.1 mmol/L 11/09/2024 6:50 PM EDT [facility] CH Rem 2.0 Chloride 100 98 - 110 mmol/L 11/09/2024 6:50 PM EDT [facility] CH Rem 2.0 CO2 34(H) 21 - 31 mmol/L 11/09/2024 6:50 PM EDT [facility] Rem 2.0 Anion Gap 8.0 2.0 - 11.0 11/09/2024 6:50 PM EDT [facility] CH Rem 2.0 Calcium 9.8 8.6 - 10.2 mg/dL 11/09/2024 6:50 PM EDT [facility] CH Rem 2.0 Glucose 98 74 - 109 mg/dL 11/09/2024 6:50 PM EDT [facility] CH Rem 2.0 BUN 7 7 - 25 mg/dL 11/09/2024 6:50 PM EDT [facility] Rem 2.0 Creatinine 0.71 0.60 - 1.20 mg/dL 11/09/2024 6:50 PM EDT [facility] CH Rem 2.0 BUN/Creatinine Ratio 9.9 6.0 - 22.0 11/09/2024 6:50 PM EDT [facility] CH Rem 2.0 Albumin 4.2 3.5 - 5.2 Gram/dL 11/09/2024 6:50 PM EDT [facility] Rem 2.0 Total Protein 7.4 6.4 - 8.9 Gram/dL 11/09/2024 6:50 PM EDT [facility] CH Rem 2.0 A/G Ratio 1.3 1.0 - 1.7 11/09/2024 6:50 PM EDT [facility] CH Rem 2.0 Alkaline Phosphatase 82 34 - 104 Units/Lite r 11/09/2024 6:50 PM EDT [facility] Rem 2.0 ALT (SGPT) 8 <=24 Units/Lite r 11/09/2024 6:50 PM EDT [facility] Rem 2.0 AST 11(L) 13 - 39 Units/Lite r 11/09/2024 6:50 PM EDT [facility] Rem 2.0 Total Bilirubin 0.6 0.3 - 1.0 mg/dL 11/09/2024 6:50 PM EDT [facility] Rem 2.0 Globulin, Total 3.2 2.0 - 3.5 Gram/dL 11/09/2024 6:50 PM EDT [facility] Rem 2.0 EGFR 97 >=60 mL/min/1.7 3m2 11/09/2024 6:50 PM EDT [facility] Rem 2.0 Comment:eGFR calculation per formed using the CKD-EPI 2020 equation (race variable excluded) Blood 11/09/2024 6:11 PM EDT 11/09/2024 6:22 PM EDT [facility] - 11/09/2024 6:50 PM EDT EKG Performed by [facility], [address] [place] [address] us Tala Cazares MD LAB BLOOD ORDERABLES Final Re sult [facility] [address] [place] [address], [facility] Rem 2.0 Pathology Department [address] [place] [address] from Last 3 Months Insurance MEDICARE [place]ICAID [place] Care Teams Roof Foreman Relationship Specialty Start Date End Date System, Provider Not In PCP - General 06/16/23
--- OUTSIDE RECORDS SUMMARY | 2025-02-08 05:17 | XMS_ITS | Clinical Summary ---
Author Organization [facility] Address [address] [place] [address] Care Team Providers Care Full Service Vending Driver Name Role Phone Frandy Valdes Primary Care Provider + Allergies Active Allergy Reactions Criticality Noted Date Comments Morphine Itching High 03/18/2010 Naproxen Swelling 01/21/2019 Penicillins Swelling 12/23/2023 Medications acetaminophen (TYLENOL) 325 MG tablet Take 2 tablets by mouth Every 4 (Four) Hours As Needed for Mild Pain. 4 Active aspirin 81 MG chewable tablet Chew 1 tablet Daily. 30 tablet 4 Active tiotropium bromide monohydrate (SPIRIVA RESPIMAT) 2.5 MCG/ACT aerosol solution inhaler Inhale 2 puffs Daily. 4 g 4 Active atorvastatin (LIPITOR) 80 MG tablet Take 1 tablet by mouth Every Night. 30 tablet 4 Active lisinopril (PRINIVIL,ZESTRI L) 5 MG tablet Take 1 tablet by mouth Daily. 30 tablet 4 Active clopidogrel (PLAVIX) 75 MG tablet Take 1 tablet by mouth Daily. 30 tablet 4 Active doxylamine (UNISOM) 25 MG tablet Take 1 tablet by mouth Every Night. 30 tablet 4 Active nicotine (NICODERM CQ) 21 MG/24HR patch Place 1 patch on the skin as directed by provider Daily As Needed (nicotine withdrawal). 28 each 4 Active amLODIPine (NORVASC) 5 MG tablet Take 1 tablet by mouth Daily. 30 tablet 4 Active Active Problems Problem Noted Date Diagnosed Date COPD exacerbation 06/12/2024 Asthma 12/24/2023 Calculus of gallbladder with acute and chronic cholecystitis without obstruction 12/24/2023 Carpal tunnel syndrome 12/24/2023 Depression 12/24/2023 Tobacco abuse 03/19/2017 Benign neoplasm of skin 01/25/2014 Migraine 10/27/2013 Obesity 10/12/2013 Hyperlipidemia 07/27/2010 Resolved Problems Problem Noted Date Diagnosed Date Resolved Date Stroke 12/24/2023 12/26/2023 Neurological symptoms 12/23/20232023 Immunizations Immunization Administration Dates Next Due Fluzone (or Fluarix & Flulaval for VFC) >6mos ,03/20/2017 Pneumococcal Conjugate 13-Valent (PCV13) 015 Pneumococcal Polysaccharide (PPSV23) 03/20/2017 Zostavax 04/13/2015 Social History Tobacco Use Types Packs/Day Years Used Date Smoking Tobacco: Every Day Cigarettes 1 46.1 Started: 12/22/1978 Smokeless Tobacco: Never Tobacco Cessation:Ready to Q uit: Not Asked; Counseling Given: Not Answered Alcohol Use Standard Drinks/Week Comments Never 0 (1 standard drink = 0.6 oz pur e alcohol) [facility] Utilities Answer Date Recorded In the past 12 months has [employer], gas, oil, or water [employer] threatened to shut off services in your home? No 01/05/2024 AUDIT-C Answer Date Recorded Q1: How often do you have a drink containing alc ohol? Monthly or less 12/23/2023 Q2: How many drinks containi ng alcohol do you have on a typical day when you are drinking? 1 or 2 12/23/2023 Q3: How often do you have si x or more drinks on one occasion? Never 12/23/2023 Overall Financial Resource Strain (CARDIA) Answe r Date Recorded How hard is it for you to pa y for the very basics like food, housing, medical care, and heating? Somewhat hard 01/05/2024 Hunger Vital Sign Answer Date Recorded Within the past 12 months, y ou worried that your food would run out before you got the money to buy more. Never true 01/05/20 24 Within the past 12 months, t he food you bought just didn't last and you didn't have money to get more. Never true 01/05/2024 PRAPARE - Transportation Answer Date Re corded In the past 12 months, has l ack of transportation kept you from medical appointments or from getting medications? No 12/15 In the past 12 months, has l ack of transportation kept you from meetings, work, or from getting things needed for daily living? No 01/05/2024 Abuse Screen Answer Date Recorded Feels Unsafe at Home or Work/School no 06/11/2024 Feels Threatened by Someone no 05/17 Does Anyone Try to Keep You From Having Contact with Others or Doing Things Outside Your Home? no 06/11/2024 Physical Signs of Abuse Present no 06/11/2024 Housing Stability Answer Date Recorded Current Living Arrangements home 12/15 Potentially Unsafe Housing Conditions none 01/05/2024 Employment Answer Date Recorded Do you want help finding or keeping work or a job? I do not need or want help 01/05/2024 Disabilities Answer Date Recorded Difficulty Concentrating, Remembering or Making Decisions no 12/23/2023 Difficulty Managing Errands Independently no 12/23/2023 Education Answer Date Recorded Help with school or training? Not on file Preferred Language Kittitian 01/05/2024 Comments Unknown Sex and Gender Information Value Date Recorded Sex Assigned at Not on file Legal Sex Female 12:31 PM EST Gender Identity Not on file Sexual Orientation Not on file Last Filed Vital Signs Vital Sign Reading Time Taken Comments Blood Pressure 138/61 06/12/2024 1:30 AM EST Pulse 103 06/12/2024 1:30 AM EST Temperature 36.6 C (97.8 F) 06/11/2024 7:14 PM EST Respiratory Rate 18 06/11/2024 11:33 PM EST Oxygen Saturation 92% 06/12/2024 1:30 AM EST Inhaled Oxygen Concentration - - Weight 82.6 kg (182 lb) 06/11/2024 7:14 PM EST Height 152.4 cm (5') 06/11/2024 7:14 PM EST Body Mass Index 35.54 06/11/2024 7:14 PM EST Plan of Treatment Health Maintenance Due Date Last Done Comments Annual Gynecologic Pelvic an d Breast Exam 1963 TDAP/TD VACCINES (1 - Tdap) 1982 PAP SMEAR 1984 COLOGUARD 2008 COLON CANCER SCREENING 5 YEA R SIGMOID[address]COPY [address] COLONOGRAPHY 2008 FECAL OCCULT BLOOD TEST 2008 FIT Testing (1 year) 2008 ZOSTER VACCINE (2 of 3) 06/08/2015 04/13/2015 MAMMOGRAM 09/02/2019 09/01/2017, 08/14, 10/23/2015, Additional history exists Pneumococcal Vaccine 50+ (3 of 3 - PCV20 or PCV21) 03/20/2022 03/20/2017, 04/13/2015 ANNUAL WELLNESS VISIT 12/25/2023 01/29/2018 HEPATITIS C SCREENING 12/25/2023 COVID-19 Vaccine (1 - 2023-2 5 season) 2024 LIPID PANEL 12/23/2024 12/24/2023, 07/27/2010 INFLUENZA VACCINE 03/16/2025 04/21/2024, , 03/20/2017 COLONOSCOPY 02/21/2026 02/22/2016 COLORECTAL CANCER SCREENING 02/21/2026 LUNG CANCER SCREENING Discontinued 06/12/2024 Procedures Procedure Name Priority Date/Time Associated Diagnosis Comments CT ANGIOGRAM CHEST STAT 06/12/2024 1: 19 AM EST LIPID PANEL Urgent 12/24/2023 8:19 AM EDT from Last 3 Months or Most Recently Relevant to Health Maintenance Results * CT Angiogram Chest (06/12/2024 1:19 AM EST) Anatomical Region Laterality Modality Chest, Vascular N/A Computed Tomogra phy 06/12/2024 1:22 AM EST Impressions 06/12/2024 1:24 AM EST Impression: 1.No evidence of pulmonary embolism. 2.Atelectatic changes present within the medial aspect of the left lower lobe as well as within the lingula. Superimposed pneumonia cannot be excluded. Otherwise, no acute cardiopulmonary process. 3.Ancillary findings as described above. Electronically Signed: Addis Vinson MD 06/12/2024 1:24 AM EST Workstation ID: [id number] Narrative 06/12/2024 1:[address] ANGIOGRAM CHEST Date of Exam: 06/12/2024 1:14 AM EST Indication: hypoxia. Comparison: 06/11/2024. Technique: CTA of the chest was performed after the uneventful intravenous administration of intravenous contrast. Reconstructed coronal and sagittal images were also obtained. In addition, a 3-D volume rendered image was created for interpretation. Automated exposure control and iterative reconstruction methods were used. Findings: Pulmonary arteries: Adequate opacification of the pulmonary arteries. No evidence of acute pulmonary embolism. Lungs and Pleura: Atelectatic changes are present within the medial aspect of the left lower lobe as well as within the lingula. No nodule. No consolidation. No pleural fluid. Mediastinum/Lyly: No mediastinal or hilar lymphadenopathy. Lymph nodes: No axillary or supraclavicular adenopathy. Cardiovascular: The cardiac chambers are within normal limits. The pericardium is normal. The aorta and its arch branch vessels are unremarkable. Upper Abdomen: The upper abdominal contents are unremarkable. Bones and Soft Tissue: No suspicious osseous lesion. Procedure Note Addis Vinson MD - 06/12/2024 CT ANGIOGRAM CHEST Date of Exam: 06/12/2024 1:14 AM EST Indication: hypoxia. Comparison: 06/11/2024. Technique: CTA of the chest was performed after the uneventful intravenousadministration of intravenous contrast. Reconstructed coronal and sagittalimages were also obtained. In addition, a 3-D volume rendered image wascreated for interpretation. Automated exposure control and iterative reconstruction methods wereused. Findings: Pulmonary arteries: Adequate opacification of the pulmonary arteries. Noevidence of acute pulmonary embolism. Lungs and Pleura: Atelectatic changes are present within the medial aspectof the left lower lobe as well as within the lingula. No nodule. Noconsolidation. No pleural fluid. Mediastinum/Lyly: No mediastinal or hilar lymphadenopathy. Lymph nodes: No axillary or supraclavicular adenopathy. Cardiovascular: The cardiac chambers are within normal limits. Thepericardium is normal. The aorta and its arch branch vessels areunremarkable. Upper Abdomen: The upper abdominal contents are unremarkable. Bones and Soft Tissue: No suspicious osseous lesion. IMPRESSION: Impression: 1.No evidence of pulmonary embolism. 2.Atelectatic changes present within the medial aspect of the left lowerlobe as well as within the lingula. Superimposed pneumonia cannot beexcluded. Otherwise, no acute cardiopulmonary process. 3.Ancillary findings as described above. Electronically Signed: Addis Vinson MD 06/12/2024 1:24 AM EST Workstation ID: [id number] Terri Abernathy MD IMG CT ORDERABLES Final R esult * Lipid Panel (12/24/2023 8:19 AM EDT) Total Cholesterol 167 0 - 200 mg/dL 12/24/2023 9:06 AM EDT [facility] Triglycerides 150 0 - 150 mg/dL 12/24/2023 9:06 AM EDT [facility] HDL Cholesterol 49 40 - 60 mg/dL 12/24/2023 9:06 AM EDT [facility] LDL Cholesterol 92 0 - 100 mg/dL 12/24/2023 9:06 AM EDT [facility] VLDL Cholesterol 26 5 - 40 mg/dL 12/24/2023 9:06 AM EDT [facility] LDL/HDL Ratio 1.80 12/24/2023 9:06 AM T [facility] Blood Venipuncture / Unknown 12/24/2023 8:19 AM EDT 12/24/2023 8:40 AM EDT Narrative [facility] - 12/24/2023 9:06 AM EDT Cholesterol Reference Ranges (U.S. Department of Health and Human Services ATP III Classifications) Desirable <200 mg/dL Borderline High 200-239 mg/dL High Risk >240 mg/dL Triglyceride Reference Ranges (U.S. Department of Health and Human Services ATP III Classifications) Normal <150 mg/dL Borderline High 150-199 mg/dL High 200-499 mg/dL Very High >500 mg/dL HDL Reference Ranges (U.S. Department of Health and Human Services ATP III Classifications) Low <40 mg/dl (major risk factor for CHD) High >60 mg/dl ('negative' risk factor for CHD) LDL Reference Ranges (U.S. Department of Health and Human Services ATP III Classifications) Optimal <100 mg/dL Near Optimal 100-129 mg/dL Borderline High 130-159 mg/dL High 160-189 mg/dL Very High >189 mg/dL Danny Greenfield LEGAL ADMINISTRATIVE SECRETARY LAB BLOOD ORDERABLES Final Re sult [facility]
[address] [place] [address], from Last 3 Months or Most Recently Relevant to Health Maintenance Insurance MEDICAID [place] [employer] MEDICARE ADVANTAGE SNP Advance Directives * CPR (Attempt to Resuscitate) (Latest Code Status on File) Date Activated Date Inactivated Comments 12/24/2023 2:36 AM 12/26/2023 4:27 PM Question Answer Comments Code Status (Patient has no pulse and is not breathing): CPR (Attempt to Resuscitate) Medical Interventions (Patie nt has pulse or is breathing): Full Support Care Teams Full Service Vending Driver Relationship Specialty Start Date End Date Frandy Valdes, DO PEREZI: [phone] [id number] [place] [id number] PCP - General Internal Medicine 12/23/23
--- OUTSIDE RECORDS SUMMARY | 2025-02-08 05:19 | XMS_ITS | Clinical Summary ---
Author Organization [facility] Address [address] [id number] Care Team Providers Care Geological Engineering Teacher Name Role Phone Monica Raymundo AGUSTIN Primary Care Provider [phone]- [phone] Allergies Active Allergy Reactions Criticality Noted Date [...] Date Smoking Tobacco: Every Day Cigarettes 0.5 47.6 Started: 1979 Tobacco Cessation:Ready to Q uit: [...] [facility]-HIV Screening 1963 [facility]-Hepatitis C Screening 1963 [facility]-Infant/Child/Adol SDOH Screenings 1963 [id number] Vaccine (#1) 1968 [facility]- SDOH Screenings 1981 [...] 60-74 years 1-dose series) 2023 [facility]-Influenza Vaccine (#1) 2025 06/24/2023, HPV Vaccines Aged Out No longer eligi [...] complete this topic Insurance MEDICARE Care Teams Geological Engineering Teacher Relationship Specialty Start Date End Date Monica Raymundo APRN [address] [id number] PCP - General 04/06/24
[2025-02-08 05:22] VITALS: BP 198/77; PULSE 84; RESP 16; TEMP 36.6; O2SAT 97; BMI 32.8
--- NOTE | 2025-02-08 05:31 | CT_ITS ---
PROCEDURE INFORMATION: Exam: CTA Head With Contrast, Venography Exam date and time: 02/08/2025 6:00 AM Age: 59 years old Clinical indication: Pain; Headache; Additional info: Headache, vision changes, prior CVA TECHNIQUE: Imaging protocol: Computed tomography angiography of the head with contrast. Exam focused on the veins. 3D rendering (Not supervised by radiologist): MIP and/or 3D reconstructed images were created by the technologist. Radiation optimization: All CT scans at this facility use at least one of these dose optimization techniques: automated exposure control; mA and/or kV adjustment per patient size (includes targeted exams where dose is matched to clinical indication); or iterative reconstruction. Contrast material: ISOVUE; Contrast volume: 80 ml; Contrast route: INTRAVENOUS (IV); COMPARISON: CT ANGIO HEAD 04/28/2024 12:40 AM FINDINGS: Superior sagittal sinus: Patent. Straight sinus: Patent. Transverse sinuses: Patent. Sigmoid sinuses: Patent. Internal jugular veins: Limited visualized internal jugular veins are patent. Brain: No definite mass, mass effect, or midline shift. Cerebral ventricles: No ventriculomegaly. Soft tissues: Unremarkable. IMPRESSION: No venous thrombosis.
--- NOTE | 2025-02-08 05:31 | CT_ITS ---
PROCEDURE INFORMATION: Exam: CT Head Without Contrast Exam date and time: 02/08/2025 5:58 AM Age: 59 years old Clinical indication: Pain; Headache; Additional info: Headache, vision changes, prior CVA TECHNIQUE: Imaging protocol: Computed tomography of the head without contrast. Radiation optimization: All CT scans at this facility use at least one of these dose optimization techniques: automated exposure control; mA and/or kV adjustment per patient size (includes targeted exams where dose is matched to clinical indication); or iterative reconstruction. COMPARISON: CT ANGIO HEAD 04/28/2024 12:40 AM FINDINGS: Brain: Bilateral chronic posterior cerebral artery infarcts are identified. There is no evidence of acute parenchymal hemorrhage, extra-axial collection, or acute infarction. There is no mass effect, midline shift, or downward herniation. Cerebral ventricles: No ventriculomegaly. Paranasal sinuses: Visualized sinuses are unremarkable. No fluid levels. Mastoid air cells: Visualized mastoid air cells are well aerated. Bones: Unremarkable. No acute fracture. Soft tissues: Unremarkable. IMPRESSION: Chronic infarcts. No evidence of acute intracranial process.
[2025-02-08 05:46] LABS: Alanine Aminotransferase 12 U/L (12-78); Albumin Level 4.5 g/dl (3.5-5.0); Albumin/Globulin Ratio 1.5 (1.1-1.8); Alkaline Phosphatase 91 U/L (38-126); Anion Gap 9.7 mEq/L (5-15); Aspartate Amino Transferase 42 U/L (14-36); Bilirubin,Total 0.6 mg/dl (0.2-1.3); Blood Urea Nitrogen 4 mg/dl (7-17); Calcium 9.6 mg/dl (8.4-10.2); Carbon Dioxide 34 mmol/L (22.0-30.0); Chloride 101 mmol/L (98-107); Creatinine Clearance Estimated 78 mL/min (50-200); Creatinine,Serum 0.60 mg/dl (0.52-1.04); Estimated Glomerular Filt Rate 102 ml/min (>60); GFR (African American) 123 ML/MIN (>60); Globulin 3.1 g/dL (1.3-3.2); Glucose 82 mg/dl (74-100); Potassium 3.7 mmoL/L (3.5-5.1); Sodium 141 mmol/L (136-145); Total Protein,Serum 7.6 g/dl (6.3-8.2)
[2025-02-08 05:51] LABS: Hematocrit 48.7 % (37.0-47.0); Hemoglobin 16.6 g/dL (12.2-16.2); Immature Granulocytes % 0.2 %; Mean Corpuscular HGB Conc 34.1 g/dL (31.8-35.4); Mean Corpuscular Hemoglobin 34.1 pg (27.0-31.2); Mean Corpuscular Volume 100.0 fl (81-99); Nucleated Red Blood Cells % 0 %; Platelet Count 235 K/mm3 (142-424); Red Blood Count 4.87 M/mm3 (4.20-5.40); Red Cell Distribution Width-SD 47.5 fL; White Blood Count 9.1 K/mm3 (4.8-10.8)
--- NOTE | 2025-02-08 05:56 | PC.NURSE ---
PT transported to radiology via WC by radiology staff.
[2025-02-08] MEDS: PROCHLORPERAZINE 10MG/2ML VIAL 10 MG IV (06:06)
[2025-02-08] MEDS: KETOROLAC 30MG/ML VIAL 30 MG IV (06:07)
[2025-02-08] MEDS: 0.9 % SODIUM CHLORIDE 50 ML VIAL IV (06:07)
[2025-02-08] MEDS: SODIUM CHLORIDE 0.9% 10ML SYR (RAD ONLY) 10 ML IV (06:07)
[2025-02-08] MEDS: IOPAMIDOL-370 (76%);100ML BOTTLE 80 ML IV (06:07)
[2025-02-08] MEDS: LACTATED RINGERS 1000ML 1,000 ML 999 ML IV (06:08)
[2025-02-08] MEDS: MAGNESIUM SULFATE IN WATER 2 GM/50 ML PIGGYBACK IV (06:09)
[2025-02-08 06:31] VITALS: BP 161/74; PULSE 67; RESP 19; O2SAT 93
[2025-02-08 07:01] VITALS: BP 158/76; PULSE 58; RESP 13; O2SAT 97
[2025-02-08 07:10] VITALS: BP 158/76; PULSE 58; RESP 13; TEMP 36.6; O2SAT 97
== END 2025-02-08 07:11 | disposition home or self-care (01) ==
PROVIDERS: Emergency Provider Emergency Medicine; PCP Internal Medicine
DX: R51.9 Headache, unspecified (principal); R25.1 Tremor, unspecified; E78.5 Hyperlipidemia, unspecified; I10 Essential (primary) hypertension; F17.210 Nicotine dependence, cigarettes, uncomplicated
CPT/HCPCS: 70450; 70496; 80053; 85025; 96365; 96367; 96375; 99284; 99285; J0780; J1885; J3475; J7120; Q9967

== ENCOUNTER 2025-02-24 20:36 | Emergency (ER) | payer MEDICARE, MEDICAID, SELFPAY ==
--- OUTSIDE RECORDS SUMMARY | 2025-02-24 20:51 | XMS_ITS | Clinical Summary ---
Author Organization [facility] Address [address] [facility] [address] [place] [address] Care Team Providers Care Dry Primer Powder Blender Name Role Phone System, Provider Not In [...] 2013 Zoster Vaccines (1 of 2) 2013 Depression Risk Screening 06/16/2024 SDOH Screening 06/16/2024 COVID-19 Vaccine ( - 2023-2 5 season) 2025 Influenza Vaccine (#1) 2025 Hepatitis C Screening [...] Procedure Name Priority Date/Time Associated Diagnosis Comments HEPATITIS C AB W/REFL TO HCV RNA, QN, PCR Routine 11/09/2024 6:11 PM EDT from Last 3 Months or Most Recently Relevant to Health Maintenance Results * HEPATITIS C AB W/REFL TO HCV RNA, QN, PCR (11/09/2024 6:11 PM EDT) Hep C Virus Ab NONREACTIVE Nonreactive 11/09/2024 7:28 PM EDT [facility] Rem 2.0 Blood 11/09/2024 6:11 PM EDT 11/09/2024 6:21 PM EDT [facility] - 11/09/2024 7:[address]T Ready for CT Orthostats, urine Collect only if other blood is being drawn. Ordered per Hep C Screening Protocol. ([email or web address]) Performed by [facility], [address] [place] [address] us Non-[facility] Provider LAB BLOOD ORDERABLES Final Resu lt [facility] [address] [place] [address], [facility] Rem 2.0 Pathology Department [address] [place] [address] from Last 3 Months or Most Recently Relevant to Health Maintenance [place] [address] MEDICAID [place] Care Teams Dry Primer Powder Blender Relationship Specialty Start Date End Date System, Provider Not In PCP - General 06/16/23
--- OUTSIDE RECORDS SUMMARY | 2025-02-24 20:51 | XMS_ITS | Clinical Summary ---
Author Organization [facility] Address [address] [place] [phone] Phone Care Team Providers Care Research And Development Scientist Name Role Phone George Crouch MD Primary Care Physician [ ] Conditions or Problems Problem Name Problem Code Onset Date Status Entry Date Provider Comment Standard Description Annotate Low back pain 196073073 (SNOMED CT) 08/24 Active 08/24 George Crouch MD Low back pain COPD EXACERBATION J44.1 (ICD-10-CM ) Inactive George Crouch MD Chronic obstructive pulmonary disease with (acute) exacerbation Sinusitis, acute 87376656 (SNOMED CT) Inactive George Crouch MD Acute sinusitis Depression 12581735 (SNOMED CT) Active George Crouch MD Depressive disorder Asthma 050670307 (SNOMED CT) Active George Crouch MD Asthma NEVI, MULTIPLE 526846896 (SNOMED CT) 01/25 Active 01/25 George Crouch MD Skin - benign mole and nevus 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 83519967 (SNOMED CT) 11/22 Inactive 11/22 George Crouch MD Gynecologic examination VAGINITIS NOS 09513990 (SNOMED CT) 11/22 Inactive 11/22 George Crouch MD Vaginitis CANDIDIASIS SKIN B37.2 (ICD-10-CM ) 10/27 Inactive 10/27 George Crouch MD Candidiasis of skin and nail MIGRAINE 09358331 (SNOMED CT) 10/27 Active 10/27 George Crouch MD Migraine GERD 367169594 (SNOMED CT) 10/12 Active 10/12 George Crouch MD Gastroesophagea l reflux disease PREOPERATIVE EXAMINATION 289973022 (SNOMED CT) 09/06 Resolved 09/06 George Crouch MD Preoperative procedures COPD EXACERBATION J44.1 (ICD-10-CM ) 07/27 Resolved 07/27 George Crouch MD Chronic obstructive pulmonary disease with (acute) exacerbation MENOPAUSE-RE LATED VASOMOTOR SYMPTOMS 291660984 (SNOMED CT) 10/12 Active 10/12 George Crouch MD Menopause symptoms present Question of RESTLESS LEG SYNDROME 31011331 (SNOMED CT) 10/12 Active 10/12 George Crouch MD Restless legs syndrome OBESITY NOS 989101298 (SNOMED CT) 10/12 Active 10/12 George Crouch MD Obesity BP HIGH NO HTN R03.0 (ICD-10-CM ) 10/12 Active 10/12 George Crouch MD Elevated blood-pressure reading, without diagnosis of hypertension COPD 44781682 (SNOMED CT) 09/21 Active 09/21 Angelia Goldberg SUPERVISORY FORESTER Chronic obstructive pulmonary disease ANXIETY DEPRESSION 616336884 (SNOMED CT) 09/21 Active 09/21 Angelia Goldberg SUPERVISORY FORESTER Mixed anxiety and depressive disorder ANKLE PAIN, CHRONIC 136853079 (SNOMED CT) 09/21 Active 09/21 Angelia Goldberg SUPERVISORY FORESTER Ankle pain PREOPERATIVE EXAMINATION 609413864 (SNOMED CT) 09/06 Removed 09/06 Geetha Tolbert MD Preoperative procedures HYPERLIPIDEM IA 26016741 (SNOMED CT) 07/27 Active 07/27 Geetha Tolbert [...] MG CAPS 1 CAP QHS NORTRIPTYLINE HCL 68710651169 George Crouch MD MELOXICAM 7.5 MG TABS 1 TAB DAILY WITH FOOD MELOXICAM 00015797046 George Crouch MD IMITREX 50 MG TABS 1 TAB PRN-MIGRAINES; MAY REPEAT Q2H PRN ; MAXIMUM = 4 CAPS / 24 HRS SUMATRIPTAN SUCCINATE 17314010817 Geogre Crouch MD FLUOXETINE HCL 20 MG CAPS TAKE 1 CAPSULE BY MOUTH ONCE A DAY FLUOXETINE HCL 08940837862 George Crouch MD WELLBUTRIN SR 150 MG [id number] 1 TAB 2 TIMES / DAY BUPROPION HCL 83155319807 George Crouch MD IMITREX 50 MG TABS 1 TAB PRN-MIGRAINES; MAY REPEAT Q2H PRN ; MAXIMUM = 4 CAPS / 24 HRS SUMATRIPTAN SUCCINATE 10645857874 George Crouch MD MELOXICAM 7.5 MG TABS 1 TAB DAILY WITH FOOD MELOXICAM 08604820273 George Crouch MD FLUOXETINE HCL 20 MG CAPS TAKE 1 CAPSULE BY MOUTH ONCE A DAY FLUOXETINE HCL 69920538684 George Crouch MD CYCLOBENZAPRINE HCL 10 MG TABS 1 TAB Q12H PRN- CYCLOBENZAPRINE HCL 15191104196 Britt Sanchez LPN MELOXICAM 7.5 MG TABS 1 TAB DAILY WITH FOOD MELOXICAM 65667303535 Britt Sanchez LPN FLUOXETINE HCL 20 MG CAPS TAKE 1 CAPSULE BY MOUTH ONCE A DAY FLUOXETINE HCL 45740701074 George Crouch MD WELLBUTRIN SR 150 MG [id number] 1 TAB DAILY X 3 DAYS; THEN 1 TAB 2 TIMES / DAY BUPROPION HCL 83582895733 George Crouch MD CYCLOBENZAPRINE HCL 10 MG TABS 1 TAB Q12H PRN- CYCLOBENZAPRINE HCL 28923518793 George Crouch MD MELOXICAM 7.5 MG TABS 1 TAB DAILY WITH FOOD MELOXICAM 81188765625 George Crouch MD IMITREX 50 MG TABS 1 TAB PRN-MIGRAINES; MAY REPEAT Q2H PRN ; MAXIMUM = 4 CAPS / 24 HRS SUMATRIPTAN SUCCINATE 65487760027 George Crouch MD FLUOXETINE HCL 20 MG CAPS TAKE 1 CAPSULE BY MOUTH ONCE A DAY FLUOXETINE HCL 08765087187 George Crouch MD CLOTRIMAZOLE AF 1 % CREA APPLY DIRECTED 2 TIMES / DAY CLOTRIMAZOLE 59736561649 George Crouch MD SPIRIVA HANDIHALER 18 MCG CAPS USE 1 INHALATION ONCE A DAY TIOTROPIUM BROMIDE MONOHYDRATE 28303806831 George Crouch MD VENTOLIN HFA 108 (90 Base) MCG/ACT AERS TAKE 2 INHALATIONS 4 TIMES A DAY NEEDED FOR WHEEZING ALBUTEROL SULFATE 79372530818 George Crouch MD ESTRADIOL 0.075 MG/24HR PTTW APPLY 1 PATCH WKLY ESTRADIOL 55911763536 George Crouch MD PROMETRIUM 200 MG CAPS 1 CAP QHS PROGESTERONE MICRONIZED 39952562909 George Crouch MD AUGMENTIN 875-125 MG ORAL TABLET Take 1 tablet by mouth twice a day 0 08/24 AMOXICILLIN-POT CLAVULANATE 37384051593 George Crouch MD PREDNISONE 20 MG TABS 1 TAB 3 TIMES/DAY X 2D; THEN 1 TAB 2 TIMES/DAY X 2D; THEN 1 TAB DAILY X 2D 0 08/24 PREDNISONE 22066270524 George Crouch MD WELLBUTRIN SR 150 MG [id number] 1 TAB DAILY X 3 DAYS; THEN 1 TAB 2 TIMES / DAY BUPROPION HCL 87775913444 George Crouch MD PREDNISONE 20 MG TABS 1 TAB 3 TIMES/DAY X 2D; THEN 1 TAB 2 TIMES/DAY X 2D; THEN 1 TAB DAILY X 2D PREDNISONE 21874657692 George Crouch MD AUGMENTIN 875-125 MG ORAL TABLET Take 1 tablet by mouth twice a day AMOXICILLIN-POT CLAVULANATE 34438958886 George Crouch MD ESTRADIOL 0.05 MG/24HR PTWK 1 PATCH / WK ESTRADIOL 70187978266 George Crouch MD IMITREX 50 MG TABS 1 TAB PRN-MIGRAINES; MAY REPEAT Q2H PRN ; MAXIMUM = 4 CAPS / 24 HRS SUMATRIPTAN SUCCINATE 37518546867 George Crouch MD NORTRIPTYLINE HCL 50 MG CAPS 1 CAP QHS NORTRIPTYLINE HCL 54158799948 George Crouch MD FLUOXETINE HCL 20 MG CAPS TAKE 1 CAPSULE BY MOUTH ONCE A DAY FLUOXETINE HCL 95971733257 George Crouch MD OMEPRAZOLE 20 MG TBEC 1 TAB 2 TIMES / DAY OMEPRAZOLE 05930332389 George Crouch MD ESTRADIOL 0.05 MG/24HR PTWK 1 PATCH / WK ESTRADIOL 61966296570 George Crouch MD PROMETRIUM 100 MG CAPS 1 CAP QHS PROGESTERONE MICRONIZED 17958811459 George Crouch MD ESTRADIOL 0.025 MG/24HR PTWK 1 PATCH WKLY ESTRADIOL 51807333627 George Crouch MD METRONIDAZOLE 500 MG TABS 1 TAB 2 TIMES DAILY 2014/0 11/29 METRONIDAZOLE 92495838471 George Crouch MD IMITREX 50 MG TABS 1 TAB PRN-MIGRAINES; MAY REPEAT Q2H PRN ; MAXIMUM = 4 CAPS / 24 HRS SUMATRIPTAN SUCCINATE 42656417670 George Crouch MD CLOTRIMAZOLE AF 1 % CREA APPLY DIRECTED 2 TIMES / DAY CLOTRIMAZOLE 98914425967 George Crouch MD NORTRIPTYLINE HCL 50 MG CAPS 1 CAP QHS NORTRIPTYLINE HCL 58034726646 George Crouch MD VITAMIN D3 125 MCG (5000 UT) CAPS Take 1 capsule by mouth daily CHOLECALCIFEROL 39332694662 George Crouch MD RANITIDINE HCL 150 MG ORAL TABLET 1 TAB QAM & 1 QHS RANITIDINE HCL 79302339874 George Crouch MD VENTOLIN HFA 108 (90 Base) MCG/ACT AERS TAKE 2 INHALATIONS 4 TIMES A DAY NEEDED FOR WHEEZING ALBUTEROL SULFATE 40493975466 George Crouch MD SPIRIVA HANDIHALER 18 MCG CAPS USE 1 INHALATION ONCE A DAY TIOTROPIUM BROMIDE MONOHYDRATE 67654661559 George Crouch MD FLUOXETINE HCL 20 MG CAPS TAKE 1 CAPSULE BY MOUTH ONCE A DAY FLUOXETINE HCL 78549520338 George Crouch MD LOVASTATIN 10 MG TABS TAKE 1 TABLET BY MOUTH EVERY NIGHT AT BEDTIME 09/21 LOVASTATIN 31969029098 Angelia Goldberg SUPERVISORY FORESTER PROAIR HFA 108 (90 Base) MCG/ACT INHALATION AEROSOL SOLUTION 2PUFFS Q 4HRS PRN 09/21 ALBUTEROL SULFATE 51935860411 Angelia Goldberg SUPERVISORY FORESTER AMOXICILLIN 500 MG CAPS 1po bid 09/21 AMOXICILLIN 32507832497 Angelia Goldberg SUPERVISORY FORESTER NORTRIPTYLINE HCL 25 MG CAPS take one capsule by mouth every evening NORTRIPTYLINE HCL 54735377994 George Crouch MD PROAIR HFA 108 (90 Base) MCG/ACT INHALATION AEROSOL SOLUTION 2PUFFS Q 4HRS PRN ALBUTEROL SULFATE 52093507090 Geetha Tolbert MD LOVASTATIN 10 MG TABS TAKE 1 TABLET BY MOUTH EVERY NIGHT AT BEDTIME LOVASTATIN 91403855084 Geetha Tolbert MD PROAIR HFA 108 (90 Base) MCG/ACT INHALATION AEROSOL SOLUTION ALBUTEROL SULFATE 73344998035 Geetha Tolbert MD AMOXICILLIN 500 MG CAPS 1po bid AMOXICILLIN 88668352477 Geetha Tolbert MD Medications Administered No information available. Allergies, Adverse Reactions, Alerts Allergy Name Reaction Description Start Date Severity Statu s Provider MORPHINE Critical Active Geetha diallo MD [id number] Critical No Longer Active Geetha Tolbert MD [...] in Blood ABS NEUTROPH 4868 CELLS/UL 10*3/uL 5143-9021 N Neutrophils [#/volume] in Blood MPV 9.2 [...] Plan of Care Type Date Detail Referral [facility] Gastroenterology [facility], [address], [place], [address] Referral Dermatology Refe Cookie Escalante, [address], [place], [address] Referral Dermatology Refe Cookie Escalante, [address], [place], [address] Referral excluded fr om report: Referral [facility] Referral [facility] Referral excluded fr om report: Referral Ophthamology Opt ometry Referral [facility] Sight, [facility], [address] [place] [address], [address] Pending order Medication Recon ciliation Pending order CBC no diff Pending order CMP Pending order Lipid Panel Pending order TSH reflex to fr ee T4 Pending order Mammogram Pending order SNOMED-CT: 55948 3000 Smoking Cessation Counseling Pending order SNOMED-CT: 07207 7254967149 Current Medications Documented Pending order Mammogram Pending [...] Procedures Code Procedure Name Date Entry Date [facility]-[id number] Medication Reconciliation [facility]-[id number] SNOMED-CT: 083307180 Smoking Cessation Counseling [facility]-[id number] SNOMED-CT: 100516041 338840 Current Medications Documented [facility]# 1759 [place] diff 14913 [facility] Test # CMP 3 95583 [facility] # Lipid Panel 3 25526 [facility] # TSH reflex to free T4 Mammo JUNIOR Mammogram GASTRO ST E PHYSICIA [facility] Mammo JUNIOR Mammogram 17225 [facility] # CMP 1 [facility]# 1759 CBC no diff DERM BOSS Dermatology Referral Boss Tania 2 CPT-55128 Pulse Ox for O2 Saturation; single 77946 PSYCH [facility] 03/28 OPHTH OPT [facility] Ophthamology Optomet ry Referral [facility] Mammo JUNIOR Mammogram [facility]# 98539 ThinPrep w HR HPV/GC/Chlamydia mRNA E6/E7 82164 [facility] # BV Yeast Trich Culture (Affirm) 201 09/19/08 53881 [facility] # Lipid Panel 4 CPT-43573 Urine Dip Auto 71540 927 [facility] # B12 [facility]# 1759 [place] [address] [facility] # CMP 9 96970 [facility] # TSH reflex to free T4 48909 [facility] # Vitamin D 25 Hydroxy 2 496 [facility] # HGBA1c CPT-95584 CBC with diff (Outside Lab) CPT-86818 CMP (Outside Lab) CPT-89905 Lipid Panel (Outside Lab) 20 04/17/11 CPT-59867 TSH reflex to free T-4 (Outside Lab) [...] PneumoPCV 133 Unknown Zostavax Subcutaneous Solution Reconstituted 56467 UNT/0.65ML ([facility] [address]-05) Zoster 121 Unknown Advance Directives No information available.
--- OUTSIDE RECORDS SUMMARY | 2025-02-24 20:52 | XMS_ITS | Clinical Summary ---
[facility] Organization [facility] Address [address] [place] [address] Care Team Providers Care Airline Attendant Name Role Phone Frandy aVldes Primary Care Provider + Allergies Active Allergy [...] Date Smoking Tobacco: Every Day Cigarettes 1 46.2 Started: 12/22/1978 Smokeless Tobacco: Never Tobacco Cessation:Ready to Q uit: Not Asked; Counseling Given: Not Answered Alcohol Use Standard Drinks/Week Comments Never 0 (1 standard drink = 0.6 oz pur e alcohol) [facility] Utilities Answer Date Recorded In the past 12 months has [employer], gas, oil, or water [employer] threatened to shut off services in your [...] or training? Not on file Preferred Language Swazi 01/05/2024 Comments Unknown Sex and Gender Information [...] 1965 TDAP/TD VACCINES (1 - Tdap) 1982 COLOGUARD 2008 COLON CANCER SCREENING 5 YEA R SIGMOIDOSCOPY [address] COLONOGRAPHY 2008 FECAL OCCULT BLOOD TEST 2008 FIT Testing (1 year) 2008 ZOSTER VACCINE (2 of 3) 06/08/2015 04/13/2015 MAMMOGRAM 09/02/2019 09/01/2017, 08/14, 10/23/2015, Additional history exists Pneumococcal Vaccine 50+ (3 of 3 - PCV20 or PCV21) 03/20/2022 03/20/2017, 04/13/2015 ANNUAL WELLNESS VISIT 12/25/2023 01/29/2018 HEPATITIS C SCREENING 12/25/2023 LIPID PANEL 12/23/2024 12/24/2023, 07/27/2010 COVID-19 Vaccine (1 - 2023-2 5 season) 2025 INFLUENZA VACCINE 03/16/2025 04/21/2024, , 03/20/2017 COLONOSCOPY [...] MD 06/12/2024 1:24 AM EST Workstation ID: [id number] Narrative 06/12/2024 1:[address] ANGIOGRAM [...] MD 06/12/2024 1:24 AM EST Workstation ID: [id number] Terri Abernathy MD IMG CT ORDERABLES Final R esult * Lipid Panel (12/24/2023 8:19 AM EDT) Total Cholesterol 167 0 - 200 mg/dL 12/24/2023 9:06 AM EDT [facility] Triglycerides 150 0 - 150 mg/dL 12/24/2023 9:06 AM EDT [facility] HDL Cholesterol 49 40 - 60 mg/dL 12/24/2023 9:06 AM EDT [facility] LDL Cholesterol 92 0 - 100 mg/dL 12/24/2023 9:06 AM EDT [facility] VLDL Cholesterol 26 5 - 40 mg/dL 12/24/2023 9:06 AM EDT [facility] LDL/HDL Ratio 1.80 12/24/2023 9:06 AM EDT [facility] Blood Venipuncture / Unknown 12/24/2023 8:19 AM EDT 12/24/2023 8:40 AM EDT Narrative [facility] - 12/24/2023 9:06 AM EDT Cholesterol [...] mg/dL Very High >189 mg/dL Danny Greenfield DIRECTOR OF TEACHER EDUCATION LAB BLOOD ORDERABLES Final Re sult [facility]
[address] [id number], from Last 3 Months or Most Recently [...] or is breathing): Full Support Care Teams Airline Attendant Relationship Specialty Start Date End Date Frandy Valdes DO [address] [place], [place] [address] PCP - General Internal Medicine 12/23/23
--- OUTSIDE RECORDS SUMMARY | 2025-02-24 20:52 | XMS_ITS | Clinical Summary ---
Author Organization Healthcare Address [address] [id number] Care Team Providers Care Exercise Science Instructor Name Role Phone Monica Raymundo AGUSTIN Primary Care Provider +1- [phone] Allergies Active Allergy Reactions Criticality Noted Date [...] Date Smoking Tobacco: Every Day Cigarettes 0.5 47.7 Started: 1977 Tobacco Cessation:Ready to Q uit: [...] C Screening 1965 [facility]-Infant/Child/Adol SDOH Screenings 1965 [id number] Vaccine (#1) 1968 [facility]- SDOH Screenings 1981 [...] complete this topic Insurance MEDICARE Care Teams Exercise Science Instructor Relationship Specialty Start Date End Date Monica Raymundo APRN [address] [id number] PCP - General 04/06/24
--- OUTSIDE RECORDS SUMMARY | 2025-02-24 20:52 | XMS_ITS | Clinical Summary ---
Author Organization [facility] Address [address] [place] [address] Phone Care Team Providers Care Pharmacy Associate Name Role Phone Zahra Doan MD Primary Care Provider +1- [phone] Allergies Active Allergy Reactions Criticality Noted Date Comments Naproxen Sodium Itching 03/19/2017 Morphine Itching 03/18/2010 Medications * This document contains information received from the source organization and may not represent a complete record from that organization. Nebulizers (VIXONE NEBULIZER-[facility]) [facility] Use daily with nebulizer 1 Each 8 Active Nebulizer Accessories [facility] [facility] Child size mask 1 Each 8 Active [...] 60-74 years 1-dose series) 2023 COVID-19 Vaccine (1 - 2023-2 5 season) 2025 Influenza Vaccine (#1) 2025 03/20/2017 Hepatitis B Vaccine Aged Out [...] Impressions 09/02/2017 6:09 AM EDT : Negative ([id number]-0) ~ RECOMMENDATION: Routine screening mammogram in 1 [...] MAMMO DIG SCREEN CAD BILAT performed at [facility]. The breast tissue is heterogeneously dense. This may lower the sensitivity of mammography. No suspicious calcifications. Compared to the most recent studies of 10-23-15. ~ Morgan Aliza DO IMG MAMMOGRAPHY ORDERABLES Faby l Result * [facility] EGD-COLONOSCOPY (02/22/2016 8:45 AM EDT) 02/22/2016 8:45 AM EDT Impressions [facility] - 02/22/2016 9:41 AM EDT Plan: Colonoscopy in 3-5 years depending on pathology results. This section is an excerpt of the full report. us Patsy Mortensen MD GI PROCEDURE ORDERABLES Final R esult [facility] [address] [place] [address] from Last 3 Months or Most Recently Relevant to Health Maintenance Insurance MEDICARE [place] PART A AND B GENERIC WORKERS' COMP GENERIC WORKERS' COMP MEDICARE [place] PART A AND B Advance Directives For more information, please contact: [phone] * Full Code (Latest Code Status on File) Date Activated Date Inactivated Comments 03/19/2017 8:17 PM 03/21/2017 5:59 PM Care Teams Pharmacy Associate Relationship Specialty Start Date End Date Zahra Doan MD [address] [place] [address] PCP - General Family Medicine 04/21/19
[2025-02-24 20:53] VITALS: BP 181/64; PULSE 71; RESP 18; TEMP 36.7; O2SAT 97; BMI 35.0
--- NOTE | 2025-02-24 21:06 | ED_ITS ---
<Statement entered by oJe Ramires DO - 02/25/25 00:13> I was consulted by the JOCELYNN, and we discussed the complexity of problems being addressed. I approved the treatment and management plan for this patient's care in the emergency department, thus performing a substantive portion of the medical decision making. Joe Ramires DO Discharge Plan Disposition Patient Disposition: Home, Self-Care Prescriptions Prescriptions: New doxycycline monohydrate 100 mg capsule 100 mg PO BID 10 Days Qty: 20 0RF No Action amlodipine 5 mg tablet 5 mg PO DAILY 90 Days Qty: 90 1RF atorvastatin 80 mg tablet 80 mg PO QHS Qty: 90 1RF clopidogrel 75 mg tablet 75 mg PO DAILY Qty: 90 1RF cyclobenzaprine 10 mg tablet See Rx Instructions .ROUTE .COMPLEX Qty: 90 0RF Dose Instruction: Take 1 tablet by mouth three times daily as needed for muscle spasm Rx Instructions: Take 1 tablet by mouth three times daily as needed for muscle spasm lisinopril 5 mg tablet 5 mg PO DAILY Qty: 90 1RF omeprazole 40 mg capsule,delayed release(DR/EC) See Rx Instructions .ROUTE .COMPLEX Qty: 90 0RF Dose Instruction: TAKE 1 CAPSULE BY MOUTH ONCE DAILY FOR GERD Rx Instructions: TAKE 1 CAPSULE BY MOUTH ONCE DAILY FOR GERD bupropion HCl [Wellbutrin SR] 150 mg tablet sustained-release 12 hr 150 mg PO BID Qty: 60 2RF fluoxetine 20 mg tablet 20 mg PO BID Qty: 60 2RF trazodone 50 mg tablet 50 mg PO DAILY Qty: 30 2RF ondansetron 8 mg tablet,disintegrating 8 mg PO Q8H PRN (Reason: nausea and vomiting) Qty: 30 1RF aspirin [Adult Low Dose Aspirin] 81 mg tablet,delayed release (DR/EC) 81 mg PO DAILY Spiriva Respimat 2.5 mcg/actuation mist inhalation (DME) [place] Aerosol [place] Enhancer Spacer See Rx Instructions .Route Qty: 1 0RF Rx Instructions: As directed cholecalciferol (vitamin D3) 125 mcg (5,000 unit) capsule 125 mcg PO DAILY Qty: 30 2RF Veozah 45 mg tablet 45 mg PO DAILY Qty: 30 2RF albuterol sulfate 90 mcg/actuation HFA aerosol inhaler See Rx Instructions .ROUTE .COMPLEX Qty: 9 0RF Dose Instruction: INHALE 1 PUFF BY MOUTH EVERY 4 TO 6 HOURS NEEDED FOR SHORTNESS OF BREATH OR WHEEZING Rx Instructions: INHALE 1 PUFF BY MOUTH EVERY 4 TO 6 HOURS NEEDED FOR SHORTNESS OF BREATH OR WHEEZING Referrals Follow up/Referrals: Frandy Valdes DO [Primary Care Provider, Family Practice] - See instructions Activity Restrictions/Add. Instructions Additional Instructions/Restrictions: Thank you for allowing us to care for you. You are being treated with an antibiotic that we will treat cellulitis from a bug bite and will also treat for tickborne illness. It is important you complete the entire antibiotic as prescribed. If any symptoms are worsening, you should return to the emergency department for reevaluation. Clinical Impressions Clinical Impression: Insect bite, Rash Instructions Patient Instructions: DI for Cellulitis -- Adult, Doxycycline Print Language Print Language: Egyptian Discharge ED Provider: Joe Ramires Adult HPI General Chief complaint: Skin/Abscess/Foreign Body Stated complaint: Purple [place] right thigh with hole in middle Time Seen by Provider: 02/24/25 21:05 Mode of Arrival: Ambulatory Source of Information: Patient Description of Symptoms (Recalled from ER Triage Doc. by RN): Pt presents with concerns of a spider or tick bite she has on her right hip area. Pt states she has been camping over the past 3 days and she noticed it this morning. Area is purple/red circular and she states there was a white pustule that popped in center. Denies any nausea, vomiting or fever. History of Present Illness HPI narrative: This is a 59-year-old female presenting to the emergency department today for evaluation of a rash. Patient reports camping over the last 3 days with her daughter. She got home today and was itching on her right hip. She went to the bathroom and noticed a round rash that was purple in color and had a central pustule. Patient reports she popped it and a very small amount of white fluid came out of it. She denies pain to the area. Patient reports checking herself thoroughly for ticks each day and has not found one. No additional drainage. No fever. Related Data Home Medications ?Medication ?Instructions ?Recorded ?Confirmed aspirin 81 mg tablet,delayed 81 mg PO DAILY 01/06/24 1 07/05/23 release (Adult Low Dose Aspirin) tiotropium bromide 2.5 inhalation 01/06/24 05/05/24 mcg/actuation mist for inhalation (Spiriva Respimat) Previous Rx's ?Medication ?Instructions ?Recorded amlodipine 5 mg tablet 5 mg PO DAILY 90 days #90 ta bs 02/05/24 atorvastatin 80 mg tablet 80 mg PO QHS #90 tabs clopidogrel 75 mg tablet 75 mg PO DAILY #90 tabs 01/15 08/09 cyclobenzaprine 10 mg tablet See Rx Instructions .Rout e 02/05/24 .COMPLEX #90 tabs inhalational spacing device (Dickson #1 ea 02/05/24 Aerosol [place] Enhancer spacer) lisinopril 5 mg tablet 5 mg PO DAILY #90 tabs 02/04 cholecalciferol (vitamin D3) 125 125 mcg PO DAILY #30 caps 02/06/24 mcg (5,000 unit) capsule bupropion HCl 150 mg tablet,12 hr 150 mg PO BID #60 ea 03/31/24 sustained-release (Wellbutrin SR) fluoxetine 20 mg tablet 20 mg PO BID Depression #60 tabs 03/31/24 omeprazole 40 mg capsule,delayed See Rx Instructions . Route 03/31/24 release .COMPLEX #90 caps trazodone 50 mg tablet 50 mg PO DAILY #30 tabs 03/16 12/07 fezolinetant 45 mg tablet (Veozah) 45 mg PO DAILY #30 tabs 04/21/24 ondansetron 8 mg disintegrating 8 mg PO Q8H PRN nausea and 05/05/24 tablet vomiting #30 tabs albuterol sulfate 90 mcg/actuation See Rx Instructions .Route 05/26/24 aerosol inhaler .COMPLEX #9 grams doxycycline monohydrate 100 mg 100 mg PO BID 10 days # 20 caps 02/24/25 capsule Allergies Allergy/AdvReac Type Severity Reaction Status Date / Time Penicillins Allergy Severe Swelling Verified 02/08/25 05:27 of Lip/Tongue/Throat morphine (MORPHINE) Allergy Intermediate Unknown Verified 02/08/25 05:27 allergy reaction naproxen (From ALEVE) Allergy Unknown SWELLING Verified 02/08/25 05:27 [facility] Disclaimer: The information contained in this section may have been updated after the patient was seen, as this information can be updated by other users. Medical History Asthma Macrocytosis Chronic calculous cholecystitis COPD (chronic obstructive pulmonary disease) Surgical History History of cholecystectomy History of ankle surgery H/O elbow surgery History of surgery on wrist H/O removal of cyst left cheek History of bilateral tubal ligation Family History Other No significant family history Social History Smoking Status: Current every day smoker tobacco type: cigarettes packs per day: 1 second hand exposure: Yes alcohol intake: current alcohol intake frequency: 0-2 drinks per day substance use type: denies use current occupational status: other Travel in the last 8 weeks?: None household members: spouse housing: apartment current occupational exposures/hazards: No caffeine: Yes Have you lived/traveled outside [place] in past 30 days?: No Contact w/someone who lives/traveled outside [place] past 30 days?: No Exposure to someone with infectious disease in past 14 days?: No Do you have a fever (greater than 100.4 F or 38 C)?: No Have you tested positive for COVID-19?: No Exposed to someone with COVID-19 in past 14 days?: No Do you have a sore throat?: No Do you have a cough?: No Do you have any weakness?: No Do you have any diarrhea?: No Are you experiencing any unusual bleeding?: No Do you have any muscle aches/pain?: No Do you have any abdominal pain?: No Are you experiencing loss of taste or smell?: No Other Medical History Have you received the Flu Vaccine for this season: No Have you received the Pneumonia Vaccine: No ROS Obtained: Yes Systems reviewed as appropriate & no additional complaints except as documented Physical Exam General General appearance: alert and in no apparent distress Head Head exam: atraumatic and normocephalic Neck Neck exam: Present full ROM Respiratory Respiratory exam: Present normal lung sounds bilaterally; Absent respiratory distress Cardiovascular Cardiovascular exam: Present regular rate and normal rhythm Abdominal Exam Abdominal exam: Present soft; Absent distention or tenderness Neurological Exam Neurological exam: Present alert and oriented X3 Expanded Skin Exam Comment: There is a circular, 1 cm rash to the lateral right hip that is purple in color with an erythematous outline. No central clearing. Not fluctuant or indurated. Medical Decision Making Medical Records Screening: Per USPSTF and CDC recommendations, given the prevalence of disease in our region, it is our hospital?s policy to screen for HIV and viral Hepatitis for all patients aged 18 and over and those with ongoing risk factors. Ronnie Inquiry Pt receiving controlled substance: No Vital Signs: 02/24/25 20:53 Temperature 98.1 F Temperature Source Oral Pulse Rate [Left] 71 Respiratory Rate 18 Blood Pressure [Right Arm] 181/64 H Blood Pressure Mean [Right Arm] 103 Blood Pressure Source [Right Arm] Automatic Cuff Blood Pressure Position [Right Arm] Sitting 02 Sat by Pulse Oximetry 97 Oxygen Delivery Method Room Air Orders (Tests/Meds): ED MEDICATIONS Discontinued Medications Generic Name Dose Route Start Last Admin Trade Name Freq PRN Reason Stop Dose Admin Doxycycline Hyclate 100 mg 02/24/25 21:31 Doxycycline Hycl 100 Mg Tablet PO 02/24/25 21:32 ONCE ONE Medical Decision Narrative: In summary, this is a 59-year-old female presenting to the emergency department today for evaluation of a rash to the right lateral thigh. Patient first noticed this prior to arrival when she had some itching to the area. There was a central pustule at that time which she popped. There was no additional drainage. Patient was recently camping with her daughter for the last 3 days. Patient reports doing tick checks and never found one embedded on her skin. On exam, patient is well-appearing and in no acute distress. Vital signs are stable. Respiratory rate and effort are equal. There is a round, 1 cm rash/lesion to the lateral right hip that is purple in color with an erythematous outline. No central clearing. Not fluctuant or indurated. Nontender to palpation. No surrounding erythema or warmth. No joint swelling. Exam otherwise normal. Differential diagnoses include but are not limited to spider bite, tick bite, erythema migrans, tickborne illness, nummular dermatitis, among others. Rash is not classic erythema migrans rash, however given recent camping experience, treatment benefit with doxycycline outweighs risk. If this is a spider bite with cellulitis, doxycycline also appropriate antibiotic treatment for nonpurulent and purulent cellulitis. Patient has no other signs or symptoms of tickborne illness. No indication of systemic disease. We will give first dose of doxycycline in the emergency department given her pharmacy is closed. She will pickle maker a 10-day course of doxycycline from her pharmacy in the morning and will start outpatient antibiotics. Patient understands to return to the emergency department if the rash is worsening, she develops fever, joint pain, or has any other symptoms arise. Patient feels comfortable with this plan. All questions have been answered at this time and she is appropriate for safe discharge home. Critical Care Critical Care Time Critical Care Time: No
[2025-02-24] MEDS: DOXYCYCLINE HYCL 100 MG TABLET PO (21:41)
[2025-02-24 21:42] VITALS: BP 172/69; PULSE 70; RESP 16; TEMP 36.7; O2SAT 98
== END 2025-02-24 21:43 | disposition home or self-care (01) ==
PROVIDERS: Emergency Provider Student in an Organized Health Care Education/Training Program; PCP Internal Medicine
DX: R21 Rash and other nonspecific skin eruption (principal); F17.210 Nicotine dependence, cigarettes, uncomplicated; W57.XXXA Bitten or stung by nonvenomous insect and other nonvenomous arthropods, initial encounter
CPT/HCPCS: 99283